=== PATIENT | female | born 1945 | race Caucasian/White ===

== ENCOUNTER → 2017-01-28 | Outpatient (CLI) | payer MEDICARE, BC ==
[2017-01-28 09:59] LABS: Basophils % (A) 1 %; CH 32.3; CHCM 34.4; Eosinophils % (A) 1 %; HCT 41.1 % (34.0-46.0); HDW 2.91; HGB 14.1 gm/dL (11.4-16.0); Luc # (Auto) 0.12; Luc % (Auto) 2; Lymphocytes # (A) 1.1 k/uL (1.0-4.8); Lymphocytes % (A) 22 %; MCH 32.4 pg (25.0-35.0); MCHC 34.3 g/dL (31.0-37.0); MCV 94.7 fL (80.0-100.0); Mean Platelet Volume 7.6; Monocytes # (A) 0.2 k/uL (0-1.0); Monocytes % (A) 5 %; Neutrophils # (A) 3.5 k/uL (1.3-7.7); Neutrophils % (A) 70 %; RBC 4.34 m/uL (3.80-5.40); RDW 13.7 % (11.5-15.5); WBC (Perox) 5.25
[2017-01-28 11:48] LABS: ALT 26 U/L (9-52); AST 17 U/L (14-36); Alkaline Phosphatase 88 U/L (38-126); Anion Gap 10 mmol/L; Blood Urea Nitrogen 11 mg/dL (7-17); C Reactive Protein <5.0 mg/L (<10.0); Calcium 9.8 mg/dL (8.4-10.2); Carbon Dioxide 31 mmol/L (22-30); Chloride 101 mmol/L (98-107); Cholesterol 206 mg/dL (<200); Creatine Kinase 47 U/L (30-135); Glucose 98 mg/dL (74-99); HDL Cholesterol 67 mg/dL (40-60); Magnesium 1.9 mg/dL (1.6-2.3); Non-African American GFR(MDRD) >60 (>60 ml/min/1.73 sqM); Potassium 3.5 mmol/L (3.5-5.1); Sodium 142 mmol/L (137-145); Total Protein 7.1 g/dL (6.3-8.2)
[2017-01-28 13:47] LABS: Erythrocyte Sedimentation Rate 14 mm/hr (0-20)
[2017-01-29 21:41] LABS: Hemoglobin A1C 5.1 % (4.2-6.1)
== END | disposition home or self-care (01) ==
LOC: LABWHC1 09:28
PROVIDERS: ATTEND Internal Medicine
DX: Z00.00 Encounter for general adult medical examination without abnormal findings (principal); E87.8 Other disorders of electrolyte and fluid balance, not elsewhere classified; E78.5 Hyperlipidemia, unspecified; I10 Essential (primary) hypertension; E55.9 Vitamin D deficiency, unspecified
CPT/HCPCS: 36415; 80053; 80061; 82306; 82550; 83036; 83735; 84439; 84443; 85025; 85652; 86140

== ENCOUNTER → 2017-10-10 | Outpatient (CLI) | payer MEDICARE, BC ==
--- NOTE | 2017-10-10 12:23 | FL ---
EXAMINATION TYPE: FL barium swallow w video DATE OF EXAM: 10/10/2017 MODIFIED SWALLOW / DEGLUTITION STUDY CLINICAL HISTORY: Dysphagia. TECHNIQUE: Deglutition study is performed utilizing thin liquid barium, barium thick pudding, and ba rium coated cracker. 1 min 11 sec fluoroscopy time with 0 images saved as video recording was perform ed. COMPARISON: None. FINDINGS: The oral and pharyngeal phases show satisfactory initiation and propagation with all modali ties tested. Normal mastication is seen with solid modalities tested. There is no evidence of penet ration or aspiration with any modality tested. No significant pharyngeal residue was appreciated. IMPRESSION: Unremarkable deglutition study. Please refer to speech therapist notes for further detai ls if necessary.
== END | disposition home or self-care (01) ==
LOC: RADFLMAIN 10:52
PROVIDERS: ATTEND Otolaryngology
DX: R13.10 Dysphagia, unspecified (principal)
CPT/HCPCS: 74230

== ENCOUNTER → 2018-04-06 | Outpatient (CLI) | payer MEDICARE, BC ==
--- NOTE | 2018-04-06 23:16 | BD ---
EXAMINATION TYPE: Axial Bone Density DATE OF EXAM: 04/06/2018 COMPARISON: NONE CLINICAL HISTORY: 69-year-old female osteopenia, postmenopausal screening Height: 64 Weight: 126.3 FRAX RISK QUESTIONS: Alcohol (3 or more units per day): no Family History (Parent hip fracture): no Glucocorticoids (More than 3mos): no (Ex: prednisone, prednisolone, methylprednisolone, dexamethasone, and hydrocortisone). History of Fracture in Adulthood: no Secondary Osteoporosis: 1. Type 1 Diabetes: no 2. Hyperthyroidism: no 3. Menopause before 45: no 4. Malnutrition: no 5. Chronic liver disease: no Rheumatoid Arthritis: no Current Tobacco Use: no RISK FACTORS HISTORY OF: Family History of Osteoporosis: no Active: yes Diet low in dairy products/other sources of calcium: yes Postmenopausal woman: around age 49 Lost more than 2 inches in height since high school: yes/ 4 inches MEDICATIONS: Norvasc, Lipitor Additional History: EXAM MEASUREMENTS: Bone mineral densitometry was performed using the [employer]. Bone mineral density as measured about the Lumbar spine is: ----- L1-L4(G/cm2): 0.762 T Score Values are as follows: ----- L2: -3.3 ----- L3: -2.9 ----- L4: -4.1 ----- L1-L4: -3.5 Bone mineral density has: decreased -3.1 % since study of: 12.31.2012 Bone mineral density about the R hip (g/cm2): 0.601 Bone mineral density about the L hip (g/cm2): 0.611 T Score values are as follows: -----R Neck: -3.1 -----L Neck: -3.1 -----R Total: -3.7 -----L Total: -3.7 Bone mineral density has: decreased -11.0 % since study of: 12.31.2012 IMPRESSION: Osteoporosis (T Score less than -2.5). There is increased fracture risk and therapy is usually indicated based on age. Re-Screen 1-2 years. NOTE: T-SCORE=SD OF THE YOUNG ADULT MEAN.
--- NOTE | 2018-04-07 13:30 | MM ---
Reason for exam: screening (asymptomatic). Last mammogram was performed 4 years and 6 months ago. History: Patient is postmenopausal. Family history of breast cancer in paternal aunt. Benign excisional biopsy of the right breast, April 2005. Physical Findings: A clinical breast exam by your physician is recommended on an annual basis and results should be correlated with mammographic findings. MG 3D Screening Mammo W/Cad Bilateral CC and MLO view(s) were taken. Prior study comparison: October 13, 2013, bilateral MG screening mammo w CAD. September 02, 2012, [facility] DIGITAL RIGHT MAMMOGRAM w/CAD. The breast tissue is heterogeneously dense. This may lower the sensitivity of mammography. There are benign appearing vascular calcifications bilaterally. There is no discrete abnormality. ASSESSMENT: Benign, BI-RAD 2 RECOMMENDATION: Routine screening mammogram of both breasts in 1 year.
== END ==
LOC: RADMAMWWP 13:39
PROVIDERS: ATTEND Internal Medicine
DX: Z12.31 Encounter for screening mammogram for malignant neoplasm of breast (principal); M81.0 Age-related osteoporosis without current pathological fracture
CPT/HCPCS: 77063; 77067; 77080

== ENCOUNTER → 2018-12-28 | Outpatient (CLI) | payer MEDICARE, BC ==
--- NOTE | 2018-12-28 09:50 | XR ---
EXAMINATION TYPE: XR KUB DATE OF EXAM: 12/28/2018 COMPARISON: NONE HISTORY: Frequent UTIs TECHNIQUE: One view abdominal series FINDINGS: The osseous structures are intact. The bowel gas pattern is nonspecific. Diffuse osteopenia with mil d arthropathy of the hips. Mild degenerative changes spine. Calcifications in the right abdomen are m ost likely related to gallstones. IMPRESSION: 1. Correlate for cholelithiasis.
--- NOTE | 2018-12-28 10:48 | US ---
EXAMINATION TYPE: US kidneys/renal and bladder DATE OF EXAM: 12/28/2018 COMPARISON: US & CT CLINICAL HISTORY: N39.0 Frequent/recurrent UTI. EXAM MEASUREMENTS: Right Kidney: 11.9 x 3.5 x 4.9 cm Left Kidney: 11.7 x 3.9 x 5.6 cm Right Kidney: No hydronephrosis or masses seen Left Kidney: There are several echogenic foci , one shows twinkle artifact and measures 0.6 cm, could represent a stone. Bladder: not well distended Bilateral Jets seen: No There is no evidence for hydronephrosis at this point in time. No masses are identified. The urinar y bladder is poorly distended. IMPRESSION: I cannot exclude left-sided nonobstructing nephrolithiasis.
== END | disposition home or self-care (01) ==
LOC: RADUSWWP 09:10
PROVIDERS: ATTEND Urology
DX: N39.0 Urinary tract infection, site not specified (principal)
CPT/HCPCS: 74018; 76770

== ENCOUNTER 2021-02-06 22:16 | Observation (INO) | payer MEDICARE, BC ==
--- NOTE | 2021-02-06 22:36 | ED ---
General Adult HPI - General Stated complaint: Neuro Deficits Time Seen by Provider: 02/06/21 22:18 Source: patient Mode of arrival: EMS Limitations: no limitations - History of Present Illness Initial comments: This patient is a 77-year-old woman who presents to be evaluated for feeling off balance and like she was going to fall. The patient states that this came on acutely tonight. She states that it felt like something was pulling her towards ground. She states she was feeling off balance. Her family was concerned she may be having a stroke, but patient denies having focal weakness. Onset/Timin -: hour(s) Severity scale (1-10): 0 Consistency: constant Improves with: none Worsens with: none Associated Symptoms: weakness Treatments Prior to Arrival: none - Related Data Home Medications Medication Instructions Recorded Confirmed Cholecalciferol (Vitamin D3) 75 mcg PO DAILY 02/07/21 02/07/21 [Vitamin D3 (3000 Iu)] Vitamin B Complex 1 cap PO DAILY 02/07/21 02/07/21 amLODIPine [Norvasc] 10 mg PO DAILY 02/07/21 02/07/21 Allergies Allergy/AdvReac Type Severity Reaction Status Date / Time ampicillin Allergy Rash/Hives Verified 02/07/21 07:00 prochlorperazine Allergy Anaphylaxis Verified 02/07/21 07:00 [From Compazine] Review of Systems ROS Statement: Those systems with pertinent positive or pertinent negative responses have been documented in the HPI. ROS Other: All systems not noted in ROS Statement are negative. Constitutional: Denies: fever, chills Eyes: Denies: vision change Respiratory: Denies: cough, dyspnea Cardiovascular: Denies: chest pain, palpitations, edema Gastrointestinal: Denies: abdominal pain, vomiting, diarrhea, constipation Genitourinary: Denies: dysuria, hematuria Musculoskeletal: Denies: back pain Skin: Denies: rash Neurological: Reports: weakness (Generalized), abnormal gait. Denies: headache, numbness, paresthesias, confusion General Exam General appearance: alert, in no apparent distress Head exam: Present: atraumatic, normocephalic Eye exam: Present: normal appearance. Absent: scleral icterus, conjunctival injection Neck exam: Present: normal inspection, full ROM Respiratory exam: Present: normal lung sounds bilaterally. Absent: respiratory distress, wheezes, rales, rhonchi, stridor Cardiovascular Exam: Present: regular rate, normal rhythm, normal heart sounds. Absent: systolic murmur, diastolic murmur, rubs, gallop GI/Abdominal exam: Present: soft. Absent: distended, tenderness, guarding, rebound, rigid, mass Back exam: Present: normal inspection. Absent: CVA tenderness (R), CVA tenderness (L) Neurological exam: Present: alert, oriented X3, CN II-XII intact. Absent: motor sensory deficit Skin exam: Present: warm, dry, intact, normal color. Absent: rash Course Vital Signs 02/06/21 02/06/21 02/06/21 22:18 22:30 23:30 Temperature 97.7 F 97.6 F 97.7 F Pulse Rate 86 81 87 Respiratory 16 18 18 Rate Blood Pressure 141/78 135/72 145/81 O2 Sat by Pulse 96 95 95 Oximetry 02/06/21 02/07/21 02/07/21 23:58 00:30 01:30 Temperature 97.7 F 97.7 F Pulse Rate 82 92 92 Respiratory 16 18 16 Rate Blood Pressure 150/81 144/71 139/72 O2 Sat by Pulse 95 94 L 95 Oximetry 02/07/21 02/07/21 02:30 05:45 Temperature 97.6 F 97.8 F Pulse Rate 89 89 Respiratory 16 16 Rate Blood Pressure 140/72 125/63 O2 Sat by Pulse 96 96 Oximetry EKG Findings - EKG Results: EKG: interpreted by FITO, sinus rhythm (Rate 78 bpm), normal axis, normal QRS, normal ST/T, no acute changes Medical Decision Making - Medical Decision Making Patient is 76-year-old woman who developed off balance feeling and then had very difficult time walking. There does not appear to be current evidence of acute ischemic stroke. Possible TIA. Patient's case discussed with Dr. Turner he who will admit with neurology consultation. - Lab Data Result diagrams: 02/06/21 22:48 02/06/21 22:48 Lab Results 02/06/21 02/06/21 02/06/21 Range/Units 22:48 22:48 22:48 WBC 5.4 (3.8-10.6) k/uL RBC 3.81 (3.80-5.40) m/uL Hgb 12.1 (11.4-16.0) gm/dL Hct 36.1 (34.0-46.0) % MCV 94.7 (80.0-100.0) fL MCH 31.8 (25.0-35.0) pg MCHC 33.6 (31.0-37.0) g/dL RDW 12.5 (11.5-15.5) % Plt Count 270 (150-450) k/uL MPV 7.9 Neutrophils % 60 % Lymphocytes % 25 % Monocytes % 8 % Eosinophils % 3 % Basophils % 0 % Neutrophils # 3.3 (1.3-7.7) k/uL Lymphocytes # 1.4 (1.0-4.8) k/uL Monocytes # 0.4 (0-1.0) k/uL Eosinophils # 0.2 (0-0.7) k/uL Basophils # 0.0 (0-0.2) k/uL PT 9.9 (9.0-12.0) sec INR 0.9 (<1.2) APTT 22.2 (22.0-30.0) sec Sodium 135 L (137-145) mmol/L Potassium 3.5 (3.5-5.1) mmol/L Chloride 98 (98-107) mmol/L Carbon Dioxide 27 (22-30) mmol/L Anion Gap 10 mmol/L BUN 22 H (7-17) mg/dL Creatinine 0.73 (0.52-1.04) mg/dL Est GFR (CKD-EPI)AfAm >90 (>60 ml/min/1.73 sqM) Est GFR (CKD-EPI)NonAf 80 (>60 ml/min/1.73 sqM) Glucose 108 H (74-99) mg/dL Calcium 9.7 (8.4-10.2) mg/dL Total Bilirubin 0.6 (0.2-1.3) mg/dL AST 22 (14-36) U/L ALT 11 (4-34) U/L Alkaline Phosphatase 98 (38-126) U/L Troponin I (0.000-0.034) ng/mL Total Protein 6.9 (6.3-8.2) g/dL Albumin 4.1 (3.5-5.0) g/dL 02/06/21 Range/Units 22:48 WBC (3.8-10.6) k/uL RBC (3.80-5.40) m/uL Hgb (11.4-16.0) gm/dL Hct (34.0-46.0) % MCV (80.0-100.0) fL MCH (25.0-35.0) pg MCHC (31.0-37.0) g/dL RDW (11.5-15.5) % Plt Count (150-450) k/uL MPV Neutrophils % % Lymphocytes % % Monocytes % % Eosinophils % % Basophils % % Neutrophils # (1.3-7.7) k/uL Lymphocytes # (1.0-4.8) k/uL Monocytes # (0-1.0) k/uL Eosinophils # (0-0.7) k/uL Basophils # (0-0.2) k/uL PT (9.0-12.0) sec INR (<1.2) APTT (22.0-30.0) sec Sodium (137-145) mmol/L Potassium (3.5-5.1) mmol/L Chloride (98-107) mmol/L Carbon Dioxide (22-30) mmol/L Anion Gap mmol/L BUN (7-17) mg/dL Creatinine (0.52-1.04) mg/dL Est GFR (CKD-EPI)AfAm (>60 ml/min/1.73 sqM) Est GFR (CKD-EPI)NonAf (>60 ml/min/1.73 sqM) Glucose (74-99) mg/dL Calcium (8.4-10.2) mg/dL Total Bilirubin (0.2-1.3) mg/dL AST (14-36) U/L ALT (4-34) U/L Alkaline Phosphatase (38-126) U/L Troponin I <0.012 (0.000-0.034) ng/mL Total Protein (6.3-8.2) g/dL Albumin (3.5-5.0) g/dL Disposition Clinical Impression: TIA (transient ischemic attack) Disposition: Left Against Medical Advice Condition: Undetermined Is patient prescribed a controlled substance at d/c from ED?: No
--- NOTE | 2021-02-06 23:08 | CT ---
EXAMINATION TYPE: CT brain wo con for TPA DATE OF EXAM: 02/06/2021 COMPARISON: 02/19/2010 HISTORY: NUERO DEFICITS CT DLP: 1121.4 mGycm Automated exposure control for dose reduction was used. Images obtained of the brain without contrast. There is cerebral cortical atrophy. There is no mass effect nor midline shift. There is no sign of in tracranial hemorrhage. There is left occipital craniotomy defect noted. There is hypodensity in the p osterior fossa on the left side consistent with some cerebellar encephalomalacia unchanged. IMPRESSION: Previous surgery in the left posterior fossa. No acute intracranial abnormality. No significant campos e compared to old exam..
[2021-02-06 23:11] LABS: Basophils % (A) 0 %; Eosinophils # (A) 0.2 k/uL (0-0.7); Eosinophils % (A) 3 %; HCT 36.1 % (34.0-46.0); HGB 12.1 gm/dL (11.4-16.0); Lymphocytes # (A) 1.4 k/uL (1.0-4.8); Lymphocytes % (A) 25 %; MCH 31.8 pg (25.0-35.0); MCHC 33.6 g/dL (31.0-37.0); MCV 94.7 fL (80.0-100.0); Mean Platelet Volume 7.9; Monocytes # (A) 0.4 k/uL (0-1.0); Monocytes % (A) 8 %; Neutrophils # (A) 3.3 k/uL (1.3-7.7); Neutrophils % (A) 60 %; Platelet Count 270 k/uL (150-450); RBC 3.81 m/uL (3.80-5.40); RDW 12.5 % (11.5-15.5); WBC 5.4 k/uL (3.8-10.6)
--- NOTE | 2021-02-06 23:11 | XR ---
EXAMINATION TYPE: XR chest 2V DATE OF EXAM: 02/06/2021 COMPARISON: 08/28/2013 HISTORY: Short of breath. Altered mental status TECHNIQUE: FINDINGS: There is large hiatal hernia. There is no heart failure. There is some coarsening of inters titial markings. Costophrenic angles are fairly clear. Bony thorax is intact. Thoracic aorta is ather omatous. There is some osteopenia. IMPRESSION: There is COPD and pulmonary fibrosis. No heart failure. Pulmonary fibrosis increased comp ared to old exam. Large hiatal hernia increased compared to old exam.
[2021-02-06 23:25] LABS: ALT 11 U/L (4-34); AST 22 U/L (14-36); African American GFR (CKD) >90 (>60 ml/min/1.73 sqM); Albumin 4.1 g/dL (3.5-5.0); Alkaline Phosphatase 98 U/L (38-126); Anion Gap 10 mmol/L; Blood Urea Nitrogen 22 mg/dL (7-17); Calcium 9.7 mg/dL (8.4-10.2); Carbon Dioxide 27 mmol/L (22-30); Chloride 98 mmol/L (98-107); Glucose 108 mg/dL (74-99); Non-African American GFR(CKD) 80 (>60 ml/min/1.73 sqM); Potassium 3.5 mmol/L (3.5-5.1); Sodium 135 mmol/L (137-145); Total Bilirubin 0.6 mg/dL (0.2-1.3); Total Protein 6.9 g/dL (6.3-8.2)
[2021-02-06 23:33] LABS: INR 0.9 (<1.2); Partial Thromboplastin Time 22.2 sec (22.0-30.0); Prothrombin Time 9.9 sec (9.0-12.0)
[2021-02-06] MEDS ORDERED: SODIUM CHLORIDE 0.9% 500 ML 500 ML IV STA (23:52)
[2021-02-07] MEDS ORDERED: ASPIRIN 325 MG TAB PO STA (00:10)
[2021-02-07] MEDS ORDERED: SODIUM CHLORIDE 0.9% 1,000 ML IV SCH (00:15)
[2021-02-07 03:43] VITALS: RESP 16
[2021-02-07 03:45] VITALS: PULSE 89
[2021-02-07 05:46] VITALS: BP 125/63; TEMP 97.8
[2021-02-07] MEDS ORDERED: DOCUSATE 100 MG CAP PO SCH (08:00)
[2021-02-07] MEDS ORDERED: FAMOTIDINE 20 MG TAB PO SCH (09:00)
[2021-02-08] MEDS ORDERED: ASPIRIN 325 MG TAB PO SCH (09:00)
== END 2021-02-07 07:39 | disposition left against medical advice (07) ==
LOC: EC 22:16 → 6NMEDSUR 02-07 00:10
PROVIDERS: ADMIT Internal Medicine; ATTEND Internal Medicine
DX: G45.9 Transient cerebral ischemic attack, unspecified (principal); R53.1 Weakness; Z79.899 Other long term (current) drug therapy; Z88.0 Allergy status to penicillin; Z88.8 Allergy status to other drugs, medicaments and biological substances; R26.89 Other abnormalities of gait and mobility; Z20.822 Contact with and (suspected) exposure to COVID-19; Z53.29 Procedure and treatment not carried out because of patient's decision for other reasons
CPT/HCPCS: 99285; 36415; 93005; 80053; 84484 ×2; 85025; 85610; 85730; 87635; 71046; 70450; G0378

== ENCOUNTER 2021-05-29 09:25 | Inpatient (IN) | payer MEDICARE, BC ==
[2021-05-29] MEDS ORDERED: ONDANSETRON 4 MG/2 ML VIAL IVP STA (09:50)
[2021-05-29] MEDS ORDERED: SODIUM CHLORIDE 0.9% 500 ML 500 ML IV STA (09:50)
[2021-05-29] MEDS ORDERED: PANTOPRAZOLE 40 MG/10 ML VIAL IVP STA (10:06)
--- NOTE | 2021-05-29 10:15 | ED ---
General Adult HPI - General Chief complaint: Nausea/Vomiting/Diarrhea Stated complaint: Vomiting,constipation Time Seen by Provider: 05/29/21 09:31 Source: patient, RN notes reviewed, old records reviewed Mode of arrival: EMS Limitations: no limitations - History of Present Illness Initial comments: 76-year-old female presenting for evaluation of nausea vomiting and very mild abdominal pain. She states she has not had a normal bowel movement over the past at least 5 days. She's had multiple episodes of vomiting and significant nausea. Vomiting has turned brown. She has previous history of CVA. She lives alone. No active chest pain. No fevers. No cough or URI symptoms. - Related Data Home Medications Medication Instructions Recorded Confirmed Cholecalciferol (Vitamin D3) 75 mcg PO DAILY 02/07/21 05/29/21 [Vitamin D3 (3000 Iu)] Vitamin B Complex 1 cap PO DAILY 02/07/21 05/29/21 amLODIPine [Norvasc] 10 mg PO DAILY 02/07/21 05/29/21 Allergies Allergy/AdvReac Type Severity Reaction Status Date / Time ampicillin Allergy Rash/Hives Verified 05/29/21 11:16 prochlorperazine Allergy Anaphylaxis Verified 05/29/21 11:16 [From Compazine] Review of Systems ROS Statement: Those systems with pertinent positive or pertinent negative responses have been documented in the HPI. ROS Other: All systems not noted in ROS Statement are negative. 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 Absent: respiratory distress, wheezes GI/Abdominal exam: Present: soft, distended, tenderness (Very minimal tenderness), hernia (Right inguinal hernia) Extremities exam: Present: normal inspection, normal capillary refill. Absent: pedal edema Neurological exam: Present: alert, oriented X3, CN II-XII intact. Absent: motor sensory deficit Psychiatric exam: Present: normal affect, normal mood Skin exam: Present: warm, dry, intact. Absent: cyanosis, diaphoretic Course Vital Signs 05/29/21 05/29/21 05/29/21 09:30 10:00 11:00 Temperature 97.0 F L Pulse Rate 104 H 106 H 97 Respiratory 19 16 14 Rate Blood Pressure 103/62 103/62 99/51 O2 Sat by Pulse 96 96 98 Oximetry - Reevaluation(s) Reevaluation #1: 05/29/21 11:[address] Blevins, will admit, likely surgery today. EKG Findings - EKG Comments: EKG Findings:: Sinus tach, rate of 108, baseline artifact, probable ST segment depression in the precordial leads no ST segment elevation, IA interval 142, QRS duration 90, QTC 527. Medical Decision Making - Medical Decision Making 76-year-old female presenting with nausea vomiting for the past 4 days. Patient is mildly distended. She has a right inguinal hernia. She is vomiting brown liquid. Workup is initiated. She has a leukocytosis. She is in acute renal failure. Lactic acid 1.9. CT shows small bowel instruction with right inguinal hernia NG tube was placed with significant return. I discussed case with Dr. Blevins who doesn't recommend continued IV fluids, antiemetics, antibiotics. Patient will be admitted to general surgery with internal medicine on consult. Likely OR today. - Lab Data Result diagrams: 05/29/21 11:36 05/29/21 09:57 Lab Results 05/29/21 05/29/21 05/29/21 Range/Units 09:57 09:57 10:32 WBC (3.8-10.6) k/uL RBC (3.80-5.40) m/uL Hgb (11.4-16.0) gm/dL Hct (34.0-46.0) % MCV (80.0-100.0) fL MCH (25.0-35.0) pg MCHC (31.0-37.0) g/dL RDW (11.5-15.5) % Plt Count (150-450) k/uL MPV Neutrophils % % Lymphocytes % % Monocytes % % Eosinophils % % Basophils % % Neutrophils # (1.3-7.7) k/uL Lymphocytes # (1.0-4.8) k/uL Monocytes # (0-1.0) k/uL Eosinophils # (0-0.7) k/uL Basophils # (0-0.2) k/uL Sodium 132 L (137-145) mmol/L Potassium 3.4 L (3.5-5.1) mmol/L Chloride 89 L (98-107) mmol/L Carbon Dioxide 22 (22-30) mmol/L Anion Gap 21 mmol/L BUN 89 H (7-17) mg/dL Creatinine 2.74 H (0.52-1.04) mg/dL Est GFR (CKD-EPI)AfAm 19 (>60 ml/min/1.73 sqM) Est GFR (CKD-EPI)NonAf 16 (>60 ml/min/1.73 sqM) Glucose 142 H (74-99) mg/dL Plasma Lactic Acid Sammy 1.9 (0.7-2.0) mmol/L Calcium 9.5 (8.4-10.2) mg/dL Total Bilirubin 1.6 H (0.2-1.3) mg/dL AST 22 (14-36) U/L ALT 19 (4-34) U/L Alkaline Phosphatase 122 (38-126) U/L Total Protein 7.0 (6.3-8.2) g/dL Albumin 4.1 (3.5-5.0) g/dL Amylase 55 (30-110) U/L Lipase 106 (23-300) U/L Coronavirus (PCR) Not Detected (Not Detectd) 05/29/21 Range/Units 11:36 WBC 22.5 H (3.8-10.6) k/uL RBC 4.91 (3.80-5.40) m/uL Hgb 15.9 (11.4-16.0) gm/dL Hct 46.6 H (34.0-46.0) % MCV 94.9 (80.0-100.0) fL MCH 32.3 (25.0-35.0) pg MCHC 34.0 (31.0-37.0) g/dL RDW 13.4 (11.5-15.5) % Plt Count 354 (150-450) k/uL MPV 8.5 Neutrophils % 92 % Lymphocytes % 3 % Monocytes % 4 % Eosinophils % 0 % Basophils % 0 % Neutrophils # 20.7 H (1.3-7.7) k/uL Lymphocytes # 0.6 L (1.0-4.8) k/uL Monocytes # 0.9 (0-1.0) k/uL Eosinophils # 0.0 (0-0.7) k/uL Basophils # 0.0 (0-0.2) k/uL Sodium (137-145) mmol/L Potassium (3.5-5.1) mmol/L Chloride (98-107) mmol/L Carbon Dioxide (22-30) mmol/L Anion Gap mmol/L BUN (7-17) mg/dL Creatinine (0.52-1.04) mg/dL Est GFR (CKD-EPI)AfAm (>60 ml/min/1.73 sqM) Est GFR (CKD-EPI)NonAf (>60 ml/min/1.73 sqM) Glucose (74-99) mg/dL Plasma Lactic Acid Sammy (0.7-2.0) mmol/L Calcium (8.4-10.2) mg/dL Total Bilirubin (0.2-1.3) mg/dL AST (14-36) U/L ALT (4-34) U/L Alkaline Phosphatase (38-126) U/L Total Protein (6.3-8.2) g/dL Albumin (3.5-5.0) g/dL Amylase (30-110) U/L Lipase (23-300) U/L Coronavirus (PCR) (Not Detectd) Critical Care Time Critical Care Time: Yes Total Critical Care Time: 35 Disposition Clinical Impression: BRIAN (acute kidney injury), SBO (small bowel obstruction) Disposition: ADMITTED IP TO THIS [facility] Condition: Serious Is patient prescribed a controlled substance at d/c from ED?: No Decision to Admit Reason: Admit from EC Decision Date: 05/29/21 Decision Time: 11:45
[2021-05-29] MEDS ORDERED: LORazepam 2 MG/ML INJ IV STA (10:19)
[2021-05-29] MEDS ORDERED: METOCLOPRAMIDE 5 MG/ML 2 ML VIAL IVP STA (10:19)
[2021-05-29 10:24] LABS: Albumin 4.1 g/dL (3.5-5.0); Calcium 9.5 mg/dL (8.4-10.2); Potassium 3.4 mmol/L (3.5-5.1); Total Bilirubin 1.6 mg/dL (0.2-1.3)
[2021-05-29] MEDS ORDERED: cefTRIAXone IN SWFI 1,000 MG/10 ML SYRINGE IVP STA (11:16)
[2021-05-29] MEDS ORDERED: metroNIDAZOLE-NS PMX 500 MG in SALINE 1 100ML.BAG IVPB STA (11:17)
--- NOTE | 2021-05-29 11:23 | CT ---
EXAMINATION TYPE: CT abdomen pelvis wo con DATE OF EXAM: 05/29/2021 HISTORY: Pain and vomiting CT DLP: 372 mGycm. Automated Exposure Control for Dose Reduction was Utilized. TECHNIQUE: CT scan of the abdomen and pelvis is performed without oral or IV contrast. COMPARISON: Prior CT February 27, 2015 FINDINGS: Within the limitations of a non-contrast study, the following observations are made. LUNG BASES: Calcification at level of the mitral valve redemonstrated. Some coronary artery calcifica tion is again seen. LIVER/GB: Dependent small calcified gallstones within gallbladder redemonstrated. Gallbladder has dis tended margins. PANCREAS: No significant abnormality is seen. SPLEEN: No significant abnormality is seen. ADRENALS: No significant abnormality is seen. KIDNEYS: Approximately 6-8 scattered nonobstructing left renal calculi on current exam measuring up t o 5 mm in size. Suspected 1 to 2 mm nonobstructing lower pole right renal calculus coronal image 58. No hydronephrosis or obstructing ureteral calculi seen bilaterally. BOWEL: Fluid-filled dilated distal esophagus extends through the diaphragmatic hiatus into fluid-fill ed distended stomach. There is fluid filled dilated duodenal sweep. There are air-fluid levels in dil ated fluid-filled small bowel loops throughout the abdomen and pelvis extending to level of the bowel containing right inguinal hernia on current study where there is abrupt cut off. Stepladder appearan ce is seen with small bowel loops dilated up to 4.5 cm. No free or mesenteric air identified. Nondist ended distal small bowel loops in the right pelvis. Fecal material seen in nondistended colon along t he periphery. Diverticula in the left and sigmoid colon are present. GENITAL ORGANS: Uterus is surgically absent. LYMPH NODES: No greater than 1cm abdominal or pelvic lymph nodes are appreciated. OSSEOUS STRUCTURES: No significant abnormality is seen. OTHER: No significant additional abnormality is seen. IMPRESSION: Findings consistent with distal small bowel obstruction related to bowel containing right inguinal hernia as detailed above. Surgical exploration is likely warranted.
[2021-05-29] MEDS ORDERED: SODIUM CHLORIDE 0.9% 500 ML 500 ML IV ONE (11:35)
[2021-05-29] MEDS ORDERED: NALOXONE 0.4 MG/ML 1 ML VIAL IV PRN (11:43)
[2021-05-29 11:55] LABS: Basophils % (A) 0 %; Eosinophils % (A) 0 %; HCT 46.6 % (34.0-46.0); HGB 15.9 gm/dL (11.4-16.0); Lymphocytes # (A) 0.6 k/uL (1.0-4.8); Lymphocytes % (A) 3 %; MCH 32.3 pg (25.0-35.0); MCV 94.9 fL (80.0-100.0); Mean Platelet Volume 8.5; Monocytes # (A) 0.9 k/uL (0-1.0); Monocytes % (A) 4 %; Neutrophils # (A) 20.7 k/uL (1.3-7.7); Neutrophils % (A) 92 %; Platelet Count 354 k/uL (150-450); RBC 4.91 m/uL (3.80-5.40); RDW 13.4 % (11.5-15.5); WBC 22.5 k/uL (3.8-10.6)
[2021-05-29 12:07] LABS: Partial Thromboplastin Time 19.6 sec (22.0-30.0); Prothrombin Time 10.8 sec (9.0-12.0)
[2021-05-29] MEDS: SODIUM CHLORIDE 0.9% 1,000 ML IV SCH (12:37)
[2021-05-29] MEDS ORDERED: POTASSIUM CHLORIDE 20 MEQ in WATER FOR INJECTION 1 100ML.BAG IVPB STA (12:58)
--- NOTE | 2021-05-29 14:14 | P.GSHP ---
History of Present Illness H&P Date: 05/29/21 CHIEF COMPLAINT: Nausea vomiting and abdominal pain HISTORY OF PRESENT ILLNESS: This is a 76-year-old female who presented to the ER with complaints of lower abdominal pain with nausea and vomiting for the past 4 days. Her emesis has been brown in color. She had multiple episodes of vomiting. She has diminished appetite. Last bowel movement was 2 days ago. She does have lower abdominal pain. She does have evidence of right incarcerated inguinal hernia. Computed tomography scan of abdomen that demonstrated distal small bowel obstruction related to bowel containing right inguinal hernia. Patient has NG tube in place. She also has had some mild tachycardia. Past surgical history includes a hysterectomy PAST MEDICAL HISTORY: Brain tumor that was removed in 2009 9 cancer is, CVA, hyperlipidemia, hypertension PAST SURGICAL HISTORY: Hysterectomy MEDICATIONS: See list. ALLERGIES: See list. SOCIAL HISTORY: No illicit drug use. REVIEW OF SYSTEMS: CONSTITUTIONAL: Denies fever or chills. HEENT: Denies blurred vision, vision changes, or eye pain. Denies hemoptysis CARDIOVASCULAR: Denies chest pain or pressure. RESPIRATORY: No shortness of breath. GASTROINTESTINAL: See HPI for pertinent findings HEMATOLOGIC: Denies bleeding disorders. GENITOURINARY: Denies any blood in urine or increased urinary frequency. SKIN: Denies pruitis. Denies rash. PHYSICAL EXAM: VITAL SIGNS: Reviewed GENERAL: Well-developed in no acute distress. HEENT: No sclera icterus. Extraocular movements grossly intact. Moist buccal mucosa. Head is atraumatic, normocephalic. No nasal drainage. ABDOMEN: Soft. Nondistended. Right inguinal hernia. Hernia is firm and hard. NEUROLOGIC: Alert and oriented. Cranial nerves II through XII grossly intact. LABORATORY DATA: WBC is 22.5 hemoglobin 15.9 platelets 354 Sodium 132 potassium 3.4 creatinine 2.7 for lactic 1.9 Total bili 1.6 LFTs normal IMAGING: Computed tomography scan of abdomen that demonstrated distal small bowel obstruc tion related to bowel containing right inguinal hernia. ASSESSMENT: 1. Right incarcerated inguinal hernia causing distal small bowel obstruction 2. Acute kidney injury due to dehydration 3. Hypokalemia PLAN: -Patient scheduled for exploratory laparotomy today with Dr. Blevins -Continue NG tube for decompression -Keep patient nothing by mouth -Continue IV fluids -Replace potassium -Consult medicine service for medical management Physician Retread Technician note has been reviewed by physician. Signing provider agrees with the documented findings, assessment, and plan of care. Past Medical History Past Medical History: CVA/TIA, Eye Disorder, Hyperlipidemia, Hypertension Additional Past Medical History / Comment(s): tremors History of Any Multi-Drug Resistant Organisms: None Reported Additional Past Surgical History / Comment(s): 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, multiple eye surgeries Past Psychological History: No Psychological Hx Reported Smoking Status: Never smoker Past Alcohol Use History: None Reported Past Drug Use History: None Reported Medications and Allergies Home Medications Medication Instructions Recorded Confirmed Type Cholecalciferol (Vitamin D3) 75 mcg PO DAILY 02/07/21 05/29/21 History [Vitamin D3 (3000 Iu)] Vitamin B Complex 1 cap PO DAILY 02/07/21 05/29/21 History amLODIPine [Norvasc] 10 mg PO DAILY 02/07/21 05/29/21 History Allergies Allergy/AdvReac Type Severity Reaction Status Date / Time ampicillin Allergy Rash/Hives Verified 05/29/21 11:16 prochlorperazine Allergy Anaphylaxis Verified 05/29/21 11:16 [From Compazine] Surgical - Exam Vital Signs Temp Pulse Resp BP Pulse Ox 97.0 F L 104 H 19 103/62 96 05/29/21 09:30 05/29/21 09:30 05/29/21 09:30 05/29/21 09:30 05/29/21 09:30 Results - Labs 05/29/21 11:36 05/29/21 09:57 Abnormal Lab Results - Last 24 Hours (Table) 05/29/21 05/29/21 05/29/21 Range/Units 09:57 11:36 11:36 WBC 22.5 H (3.8-10.6) k/uL Hct 46.6 H (34.0-46.0) % Neutrophils # 20.7 H (1.3-7.7) k/uL Lymphocytes # 0.6 L (1.0-4.8) k/uL APTT 19.6 L (22.0-30.0) sec Sodium 132 L (137-145) mmol/L Potassium 3.4 L (3.5-5.1) mmol/L Chloride 89 L (98-107) mmol/L BUN 89 H (7-17) mg/dL Creatinine 2.74 H (0.52-1.04) mg/dL Glucose 142 H (74-99) mg/dL Total Bilirubin 1.6 H (0.2-1.3) mg/dL Diabetes panel 05/29/21 Range/Units 09:57 Sodium 132 L (137-145) mmol/L Potassium 3.4 L (3.5-5.1) mmol/L Chloride 89 L (98-107) mmol/L Carbon Dioxide 22 (22-30) mmol/L BUN 89 H (7-17) mg/dL Creatinine 2.74 H (0.52-1.04) mg/dL Glucose 142 H (74-99) mg/dL Calcium 9.5 (8.4-10.2) mg/dL AST 22 (14-36) U/L ALT 19 (4-34) U/L Alkaline Phosphatase 122 (38-126) U/L Total Protein 7.0 (6.3-8.2) g/dL Albumin 4.1 (3.5-5.0) g/dL Calcium panel 05/29/21 Range/Units 09:57 Calcium 9.5 (8.4-10.2) mg/dL Albumin 4.1 (3.5-5.0) g/dL Pituitary panel 05/29/21 Range/Units 09:57 Sodium 132 L (137-145) mmol/L Potassium 3.4 L (3.5-5.1) mmol/L Chloride 89 L (98-107) mmol/L Carbon Dioxide 22 (22-30) mmol/L BUN 89 H (7-17) mg/dL Creatinine 2.74 H (0.52-1.04) mg/dL Glucose 142 H (74-99) mg/dL Calcium 9.5 (8.4-10.2) mg/dL Adrenal panel 05/29/21 Range/Units 09:57 Sodium 132 L (137-145) mmol/L Potassium 3.4 L (3.5-5.1) mmol/L Chloride 89 L (98-107) mmol/L Carbon Dioxide 22 (22-30) mmol/L BUN 89 H (7-17) mg/dL Creatinine 2.74 H (0.52-1.04) mg/dL Glucose 142 H (74-99) mg/dL Calcium 9.5 (8.4-10.2) mg/dL Total Bilirubin 1.6 H (0.2-1.3) mg/dL AST 22 (14-36) U/L ALT 19 (4-34) U/L Alkaline Phosphatase 122 (38-126) U/L Total Protein 7.0 (6.3-8.2) g/dL Albumin 4.1 (3.5-5.0) g/dL
[2021-05-29 14:35] LABS: Appearance,Urine Turbid (Clear); Bilirubin,Urine 1+ (Negative); Blood,Urine Trace (Negative); Color,Urine Yellow; Glucose,Urine (UA) Negative (Negative); Hyaline Casts,Urine 231 /lpf (0-2); Ketones,Urine Negative (Negative); Leukocyte Esterase,Urine Moderate (Negative); Mucus,Urine Few /hpf; Nitrite,Urine Negative (Negative); Protein,Urine 1+ (Negative); RBC,Urine 12 /hpf (0-5); Specific Gravity,Urine 1.019 (1.001-1.035); Squamous Epithelial Cell,Urine 6 /hpf (0-4); WBC,Urine 46 /hpf (0-5)
[2021-05-29] MEDS ORDERED: ACETAMINOPHEN IV (For NPO) 1,000 MG in EMPTY BAG 1 BAG IVPB STA (14:40)
[2021-05-29] MEDS ORDERED: IV FLUID CONTINUATION 1,000 ML IV ONE ×2 (17:16)
[2021-05-29] MEDS ORDERED: PROPOFOL 10 MG/ML 20 ML VIAL IV ONE (17:29)
[2021-05-29] MEDS ORDERED: NEOSTIGMINE 1 MG/ML 10 ML VIAL ONE (17:29)
[2021-05-29] MEDS ORDERED: PHENYLEPHRINE-0.9% NACL SYG 1,000 MCG/10 ML SYRINGE ONE (17:29)
[2021-05-29] MEDS ORDERED: GLYCOPYRROLATE 0.2 MG/ML 2 ML VIAL ONE (17:29)
[2021-05-29] MEDS ORDERED: LIDOCAINE 1% INJ 10MG/ML (20 ML MDV) ONE (17:29)
[2021-05-29] MEDS ORDERED: fentaNYL (PF) 50 MCG/ML 2 ML AMP ONE (17:29)
[2021-05-29] MEDS ORDERED: HEPARIN SODIUM,PORCINE 5,000 UNIT/ML 1 ML VIAL ONE (17:29)
[2021-05-29] MEDS ORDERED: ROCURONIUM 10 MG/ML (5 ML VIAL) IV ONE (17:29)
[2021-05-29] MEDS ORDERED: SUCCINYLCHOLINE CHLORIDE 100 MG/5 ML SYR IV ONE (17:29)
[2021-05-29] MEDS ORDERED: HYDROmorphone 1 MG/ML 1 ML SYRINGE IM PRN (18:21)
--- NOTE | 2021-05-29 18:21 | P.OP ---
Date of Procedure: 05/29/21 Preoperative Diagnosis: Incarcerated right inguinal hernia Postoperative Diagnosis: Strangulated right inguinal hernia Procedure(s) Performed: Large laparotomy Small bowel resection Repair of strength in the right inguinal hernia Anesthesia: LUIS Surgeon: Kian Blevins Estimated Blood Loss (ml): 10 Pathology: other (Small bowel) Condition: stable Disposition: PACU Description of Procedure: The patient's placed the operative table in the supine position. She received general endotracheal anesthesia. Her abdomen was prepped and draped usual fashion. The area was entered through a low midline incision. The small bowel was run. There was incarcerated right inguinal hernia. The neck of the hernia was opened and the small bowel was reduced. The small bowel was reduced. The small bowel appeared ischemic. This point the small bowel was transected proximal and distally with a GI stapler. The mesentery the bowel was divided with the Enseal device. The bowel was reanastomosed in a [id number]-[id number] functional end-to-end staple anastomosis created using the PABLITO and TA stapler. 3-0 GI silk sutures uses crotch stitch. There was areas no bleeding seen. The [id number] was opened. A core bio a mesh plug was then placed into the hernia canal. This was secured with 2-0 Ethibond suture. The peritoneum was then closed. The fascia closed with looped #1 PDS suture. Skin was closed with 3 patient top she will was sent to recovery room in stable condition. in a xzlc-ya-wicz functional end-to-end staple vessels. Using the PABLITO and TA stapler.
[2021-05-29] MEDS ORDERED: LACTATED RINGERS 1,000 ML IV ONE ×2 (18:33)
[2021-05-29] MEDS: HYDROmorphone 0.5 MG/0.5 ML SYRINGE IVP PRN (18:47)
[2021-05-29] MEDS: LACTATED RINGERS 1,000 ML IV SCH (20:34)
[2021-05-29] MEDS: ONDANSETRON 4 MG/2 ML VIAL IVP PRN (20:38)
[2021-05-30] MEDS: HYDROmorphone 0.5 MG/0.5 ML SYRINGE IVP PRN ×2 (01:24→05:50)
[2021-05-30] MEDS: SODIUM CHLORIDE 0.9% 1,000 ML IV SCH ×3 (05:26→21:54)
[2021-05-30] MEDS ORDERED: fentaNYL (PF) 50 MCG/ML 2 ML AMP IV PRN (07:00)
[2021-05-30] MEDS: PANTOPRAZOLE 40 MG/10 ML VIAL IV SCH (08:52)
[2021-05-30] MEDS: ENOXAPARIN 30 MG/0.3 ML SYRINGE SQ SCH (08:52)
[2021-05-30 08:58] LABS: Basophils # (A) 0.1 k/uL (0-0.2); Basophils % (A) 0 %; Calcium 8.4 mg/dL (8.4-10.2); Eosinophils % (A) 0 %; HCT 43.3 % (34.0-46.0); HGB 14.3 gm/dL (11.4-16.0); Lymphocytes # (A) 0.4 k/uL (1.0-4.8); Lymphocytes % (A) 2 %; MCH 31.6 pg (25.0-35.0); MCHC 33.1 g/dL (31.0-37.0); MCV 95.7 fL (80.0-100.0); Mean Platelet Volume 8.7; Monocytes # (A) 0.8 k/uL (0-1.0); Monocytes % (A) 5 %; Neutrophils # (A) 17.2 k/uL (1.3-7.7); Neutrophils % (A) 92 %; Platelet Count 276 k/uL (150-450); Potassium 3.1 mmol/L (3.5-5.1); RBC 4.53 m/uL (3.80-5.40); RDW 13.2 % (11.5-15.5); WBC 18.6 k/uL (3.8-10.6)
[2021-05-30] MEDS: HYDROmorphone 1 MG/ML 1 ML SYRINGE IVP PRN ×3 (11:22→21:54)
[2021-05-30] MEDS: LACTATED RINGERS 1,000 ML IV SCH (11:36)
[2021-05-30] MEDS ORDERED: POTASSIUM CHLORIDE 20 MEQ in WATER FOR INJECTION 1 100ML.BAG IVPB STA (14:28)
--- NOTE | 2021-05-30 15:01 | P.CON ---
Consult Note - . Consult date: 05/30/21 (Medical management) Assessment/Plan:: Consult dictation requested by Dr. Blevins general surgeon. History and chief complaint: Patient presented to the emergency room a 76 years old white female with the lower abdominal pain associated with nausea and vomiting and dehydration. In the ER they did a CAT scan and found that she had incarcerated right inguinal hernia. They called who did see the patient and evaluated the CAT scan with the patient finding with the leukocytosis and electrolyte imbalance patient taken to the OR immediately and the surgery was done with the with the incision and clearing the incarcerated hernia and found small bowel ischemic and he did resection and can and reconnection and the patient did well subsequently and that she has NG tube and Borjas catheter and nothing by mouth. Patient not on any medication at this time except for stabilization and IV fluid. Patient on admission she had significant dehydration and her creatinine was 2.74 and also her sodium was 132 potassium 3.4 however with the surgery on IV hydration her potassium went down today to 3.1. On the computed tomography scan was done and she found to have a dependent small calcific gallstones within the gallbladder was present however wasn't removed and because of symptoms and spleen was low normal and pancreas was normal adrenal gland was not seen and kidney found that 6-8 scattered nonobstructive lesions left renal calculi and 1-2 mm nonobstructive lower pole right renal calculus with the no evidence of hydronephrosis or obstructive or ureteral calculi bilaterally in dilated small bowel loop throughout the abdomen and pelv is extended to the level of the bowel containing right inguinal hernia and a propped. Which she also states bowel loop dilatation up to 4.5 cm. Nondistended distal small bowel loops in the right pelvis. With the uterus surgically absent no greater than 1 cm abdominal or pelvic lymph node and no significant abnormalities of the osseus structure. In the with the impression is finding consistent with distal small bowel obstruction with the bowel containing right inguinal hernia and surgical exploration was needed to immediately and that's was proceed. In the past medical history patient had history of hypertension and taken vitamin D3 and vitamin B complex. And past medical history of hyperlipidemia hypertension she had history of tumor removed from the brain in 2009 and she has multiple eye surgery and she never smoked is her in her life and as well as no alcohol reported and no surgery or drug use. Review of systems No further information more than what she stated that she had the nausea no vomiting and for 4 days prior to the admission with the underlying presence of dehydration severe with the elevated creatinine and a BUN. On the physical examination: The patient was conscious alert oriented she did not recall what happened to her and I did explain that to her today in details and on And she has NG tube in her oropharynx and nose and she had a Borjas catheter in place and she had the stitches in the anterior abdominal wall on the physical examination she is conscious alert she is nothing by mouth and she had facial deviation with the base with the past history of tumor was removed and some other surgery done on the jaw and the swallowing. The neck was supple no JVD no thyromegaly no lymphadenopathy trachea midline the chest was clear to auscultation and percussion and the heart was regular sinus rhythm and no dysrhythmia she has history of echocardiogram was her resulted that was dated on 12/07/2018 and her ejection fraction was 55% she had a mild concentric left ventricular hypertrophy and she had a mild mitral regurg and also also calcified aortic valve and no aortic regurgitation agitation and she had a [id number] tricuspid regurgitation and she had also normal pericardium in that date as well this echocardiogram was signed by Dr. DIANA Hayes. Her abdomen is under with the incision in the lower abdomen and no bowel sounds at this time. And no distention. The extremities she has antithrombotic stockings as well as no edema and positive pulses. No neurological deficit. And Assessment #1 small bowel obstruction with incarcerated right inguinal hernia and is some ischemia of the bowel status post resection and anastomosis. #2 her hemodynamically controlled, history of hypertension. #3 patient in nothing by mouth. #4 UTI culture was not done Will follow up with the Plan: Will start the adding to the IV fluid potassium supplementation with 20 mEq per liter as well as potassium supplementation per protocol. And physical therapy and rehabilitation will be started. Reviewing of the urine she had high WBC in the urine and we consulted the presence of UTI considered however culture was not done and patient had already Rocephin and will continue empirically Rocephin 1 g every 12 hours with the adding to the diagnoses UTI according to the urine analysis only.
--- NOTE | 2021-05-30 15:30 | P.PN ---
Subjective Progress Note Date: 05/30/21 CHIEF COMPLAINT: Abdominal pain HISTORY OF PRESENT ILLNESS: Patient is postop day #1 status post exploratory laparotomy, small bowel resection and repair of strangulated right inguinal hernia. Patient is complaining of pain this morning. Patient had not been receiving the full 1 mg IV Dilaudid. She had NG tube in place. Denies any flatus. She did admit to some nausea. Afebrile. She has had some mild tachycardia. WBC is down from 22.5-18.6 hemoglobin 14.3 sodium 138 potassium 3.1 creatinine 2.08 urine culture pending PHYSICAL EXAM: VITAL SIGNS: Reviewed. GENERAL: Well-developed in no acute distress. HEENT: No sclera icterus. Extraocular movements grossly intact. Moist buccal mucosa. Head is atraumatic, normocephalic. ABDOMEN: Soft. Nondistended. Nontender. NEUROLOGIC: Alert and oriented. Cranial nerves II through XII grossly intact. ASSESSMENT: 1. Right incarcerated inguinal hernia causing distal small bowel obstruction status post exploratory laparotomy, small bowel resection and repair of strict related renal hernia 2. Hypokalemia 3. Acute kidney injury due to dehydration PLAN: -Discontinue NG tube -Keep patient nothing by mouth except for ice chips -Pain medication has been addressed -Potassium being replaced -Continue IV fluids -Check magnesium level -GI prophylaxis Protonix and DVT prophylaxis Lovenox Physician Conditioning Yard Supervisor note has been reviewed by physician. Signing provider agrees with the documented findings, assessment, and plan of care. Objective - Vital Signs Vital signs: Vital Signs Temp 97.9 F 05/30/21 11:38 Pulse 106 H 05/30/21 11:38 Resp 18 05/30/21 11:38 BP 104/63 05/30/21 11:38 Pulse Ox 94 L 05/30/21 11:38 Intake & Output 05/29/21 05/30/21 05/30/21 18:59 06:59 18:59 Intake Total 925 50 Output Total 1750 375 400 Balance -825 -325 -400 Weight 57.606 kg Intake: IV 925 50 Output: Gastric Drainage 1650 Urine 50 375 400 Estimated Blood Loss 50 Other: Voiding Method Indwelling Catheter Indwelling Catheter - Labs CBC & Chem 7: 05/30/21 08:20 05/30/21 08:20 Labs: Abnormal Lab Results - Last 24 Hours (Table) 05/30/21 05/30/21 Range/Units 08:20 08:20 WBC 18.6 H (3.8-10.6) k/uL Neutrophils # 17.2 H (1.3-7.7) k/uL Lymphocytes # 0.4 L (1.0-4.8) k/uL Potassium 3.1 L (3.5-5.1) mmol/L Carbon Dioxide 18 L (22-30) mmol/L BUN 89 H (7-17) mg/dL Creatinine 2.08 H (0.52-1.04) mg/dL Microbiology - Last 24 Hours (Table) 05/29/21 14:05 Urine Culture - Preliminary Urine,Catheterized
[2021-05-31] MEDS: HYDROmorphone 1 MG/ML 1 ML SYRINGE IVP PRN ×3 (04:27→12:54)
[2021-05-31] MEDS: SODIUM CHLORIDE 0.9% 1,000 ML IV SCH ×5 (06:09→17:27)
[2021-05-31 08:24] LABS: Basophils % (A) 0 %; Eosinophils % (A) 0 %; HCT 42.1 % (34.0-46.0); HGB 13.4 gm/dL (11.4-16.0); Hypochromasia Slight; Lymphocytes # (A) 0.4 k/uL (1.0-4.8); Lymphocytes % (A) 3 %; MCH 31.7 pg (25.0-35.0); MCHC 31.9 g/dL (31.0-37.0); MCV 99.2 fL (80.0-100.0); Mean Platelet Volume 8.6; Monocytes # (A) 0.7 k/uL (0-1.0); Monocytes % (A) 5 %; Neutrophils # (A) 11.4 k/uL (1.3-7.7); Neutrophils % (A) 90 %; Platelet Count 290 k/uL (150-450); RBC 4.24 m/uL (3.80-5.40); RDW 13.8 % (11.5-15.5); WBC 12.6 k/uL (3.8-10.6)
[2021-05-31 08:43] LABS: Magnesium 2.5 mg/dL (1.6-2.3); Potassium 3.2 mmol/L (3.5-5.1)
[2021-05-31] MEDS: ENOXAPARIN 30 MG/0.3 ML SYRINGE SQ SCH (08:58)
[2021-05-31] MEDS: PANTOPRAZOLE 40 MG/10 ML VIAL IV SCH (08:58)
[2021-05-31] MEDS: ONDANSETRON 4 MG/2 ML VIAL IVP PRN (09:09)
[2021-05-31] MEDS ORDERED: MINERAL OIL-WHITE PETROLATUM 120 GM JAR TOPICAL PRN (10:13)
[2021-05-31] MEDS ORDERED: HYDROmorphone 0.5 MG/0.5 ML SYRINGE IVP PRN (10:18)
--- NOTE | 2021-05-31 11:05 | P.PN ---
Subjective Progress Note Date: 05/31/21 CHIEF COMPLAINT: Abdominal pain HISTORY OF PRESENT ILLNESS: Patient is postop day #2 status post exploratory laparotomy, small bowel resection and repair of strangulated right inguinal hernia. Patient still complaining of abdominal pain. She does report that the Dilaudid does help but she is requiring every 3 hours. Denies any flatus or bowel movement. She is having some nausea. Zofran is helping. Afebrile. Mild tachycardia heart rate 102. WBC trending down from 18.6-12.6 hemoglobin 13.4 sodium 146 potassium 3.2 creatinine 1.18 magnesium 2.5 urine culture no growth PHYSICAL EXAM: VITAL SIGNS: Reviewed. GENERAL: Well-developed in no acute distress. HEENT: No sclera icterus. Extraocular movements grossly intact. Moist buccal mucosa. Head is atraumatic, normocephalic. ABDOMEN: Mildly distended. Diffuse tenderness. Incision site with dried blood at distal aspect on dressing NEUROLOGIC: Alert and oriented. Cranial nerves II through XII grossly intact. ASSESSMENT: 1. Right incarcerated inguinal hernia causing distal small bowel obstruction status post exploratory laparotomy, small bowel resection and repair of strict related renal hernia 2. Hypokalemia 3. Acute kidney injury due to dehydration PLAN: -Keep patient nothing by mouth except for ice chips -Add scheduled IV Tylenol -Continue IV Diluadid 1 mg every 3 hours for pain and adjust dilaudid 0.5 IV q 2 hours PRN pain -Potassium being replaced -Continue IV fluids -Encouraged patient ambulate -Encouraged patient to use incentive spirometer -Patient can be transferred to regular medical surgical floor with telemetry -GI prophylaxis Protonix and DVT prophylaxis Lovenox Physician B2B Sales Consultant note has been reviewed by physician. Signing provider agrees with the documented findings, assessment, and plan of care. Objective - Vital Signs Vital signs: Vital Signs Temp 97.4 F L 05/31/21 04:31 Pulse 102 H 05/31/21 04:31 Resp 18 05/31/21 04:31 BP 121/62 05/31/21 04:31 Pulse Ox 91 L 05/31/21 04:31 Intake & Output 05/30/21 05/31/21 05/31/21 18:59 06:59 18:59 Output Total 1800 1100 Balance -1800 -1100 Weight 45 kg Output: Urine 1800 1100 Other: Voiding Method Indwelling Catheter Indwelling Catheter - Labs CBC & Chem 7: 05/31/21 07:29 05/31/21 07:29 Labs: Abnormal Lab Results - Last 24 Hours (Table) 05/31/21 05/31/21 Range/Units 07:29 07:29 WBC 12.6 H (3.8-10.6) k/uL Neutrophils # 11.4 H (1.3-7.7) k/uL Lymphocytes # 0.4 L (1.0-4.8) k/uL Sodium 146 H (137-145) mmol/L Potassium 3.2 L (3.5-5.1) mmol/L Chloride 111 H (98-107) mmol/L BUN 65 H (7-17) mg/dL Creatinine 1.18 H (0.52-1.04) mg/dL Magnesium 2.5 H (1.6-2.3) mg/dL Microbiology - Last 24 Hours (Table) 05/29/21 14:05 Urine Culture - Final Urine,Catheterized
[2021-05-31] MEDS ORDERED: ACETAMINOPHEN IV (For NPO) 1,000 MG in EMPTY BAG 1 BAG IVPB SCH (12:00)
[2021-05-31] MEDS: ACETAMINOPHEN IV (For NPO) 675 MG in EMPTY BAG 1 BAG IVPB SCH ×3 (12:52→23:38)
[2021-05-31] MEDS: POTASSIUM CHLORIDE 10 MEQ in WATER FOR INJECTION 1 100ML.BAG IVPB SCH ×4 (12:53→19:12)
--- NOTE | 2021-05-31 16:59 | P.PN ---
Subjective Progress Note Date: 05/31/21 (Small bowel obstruction, due to right inguinal hernia incarceration or small bowel.) Progress note dictation by Dr. Gramajo date of service 05/31/2021 Patient seen and evaluated [id number]. Patient postoperative admitted to the 3 S. behavioral health consultant floor. Patient seen and evaluated today. Patient appears to be clinically improving status post exploratory laparotomy with repair of the hernia with incarceration and systemic small bowel underwent resection. When patient admitted to the hospital through the ER she was in severe abdominal pain a CAT scan was indicating acute event subsequently patient taken to the OR and operated upon Patient at the time of admission found to have acute kidney injury secondary to severe dehydration with nausea and vomiting with the association with the pain and ischemia in the white count was extremely high 22.5. Since the surgery patient started to feel better and to communicate able to speak and discuss and initiate. Which indicated to me that definitely patient improved's Therese patient has no flatus or gas to be passed, her bowel sounds still silent. And she has tenderness on the surgery which is expected. Laboratory metabolically her white count was on admission 22.5 dropped to 12.6. Her creatinine was 2.74 drop to 1.18 with the hydration patient still nothing by mouth except ice chips. With no nausea or vomiting Her blood sugar was 142 on admission and currently 91 which is normal. Urine was positive for moderate leukocyte negative nitrite with increased WBC to 46, in the ER patient received 2 g of Rocephin, subsequent urine culture was ne gative patient still on the antibiotic for the UTI with the underlying leukocytosis Currently her sodium 146, potassium 3.2:, Chloride 111, carbon dioxide was 22 which is significantly improved with the mild metabolic acidosis at the time of admission Magnesium is elevated 2.5, she had negative Covid test. On the physical examination: Patient was conscious alert oriented able to communicate and she has some upper partial lower partial with history of surgery on her left side of the face as well as she had history of tumor was removed from the brain. Neck was supple no JVD no thyromegaly no lymphadenopathy trachea midline. Chest is clear breath sounds no wheezes no rhonchi's no cough. No rales. Heart, regular sinus rhythm no dysrhythmia Abdomenn positive tenderness at the site of the surgery which covered with dressing no bowel sound and no flatus passed no bowel movement. Extremities: She had a thrombotic stocking, the DVT prophylaxis, She had a Borjas catheter Neurology no new events conscious alert oriented. Assessment: #1 patient appears to be clinically improving post surgical intervention with the underlying right hernia incarceration and ischemic small bowel. #2 a KCI secondary to severe nausea and vomiting and dehydration which improved with hydration but not yet reaching the baseline. #3 consideration of urinary tract infection and antibiotic IV continued. Plan: #1 continue hydration #2 continue the antibiotic at least for 3 days post surgery. Potassium supplementation per protocol which ordered yesterday Obtain laboratory in a.m. Objective - Vital Signs Vital signs: Vital Signs Temp 97.2 F L 05/31/21 08:00 Pulse 113 H 05/31/21 14:00 Resp 18 05/31/21 08:00 BP 126/73 05/31/21 08:00 Pulse Ox 97 05/31/21 14:00 Intake & Output 05/30/21 05/31/21 05/31/21 18:59 06:59 18:59 Output Total 1800 1100 Balance -1800 -1100 Weight 45 kg Output: Urine 1800 1100 Other: Voiding Method Indwelling Catheter Indwelling Catheter Indwelling Catheter - Labs CBC & Chem 7: 05/31/21 07:29 05/31/21 07:29 Labs: Abnormal Lab Results - Last 24 Hours (Table) 05/31/21 05/31/21 Range/Units 07:29 07:29 WBC 12.6 H (3.8-10.6) k/uL Neutrophils # 11.4 H (1.3-7.7) k/uL Lymphocytes # 0.4 L (1.0-4.8) k/uL Sodium 146 H (137-145) mmol/L Potassium 3.2 L (3.5-5.1) mmol/L Chloride 111 H (98-107) mmol/L BUN 65 H (7-17) mg/dL Creatinine 1.18 H (0.52-1.04) mg/dL Magnesium 2.5 H (1.6-2.3) mg/dL Microbiology - Last 24 Hours (Table) 05/29/21 14:05 Urine Culture - Final Urine,Catheterized
[2021-05-31] MEDS: LACTATED RINGERS 1,000 ML IV SCH (17:24)
[2021-06-01] MEDS: SODIUM CHLORIDE 0.9% 1,000 ML IV SCH ×4 (00:45→13:06)
[2021-06-01] MEDS: HYDROmorphone 1 MG/ML 1 ML SYRINGE IVP PRN (02:24)
[2021-06-01] MEDS: ONDANSETRON 4 MG/2 ML VIAL IVP PRN (02:25)
[2021-06-01] MEDS: ACETAMINOPHEN IV (For NPO) 675 MG in EMPTY BAG 1 BAG IVPB SCH (05:15)
[2021-06-01 07:58] LABS: Basophils % (A) 0 %; Eosinophils % (A) 0 %; HCT 44.8 % (34.0-46.0); HGB 13.7 gm/dL (11.4-16.0); Hypochromasia Moderate; Lymphocytes # (A) 0.5 k/uL (1.0-4.8); Lymphocytes % (A) 4 %; MCH 30.7 pg (25.0-35.0); MCHC 30.5 g/dL (31.0-37.0); MCV 100.5 fL (80.0-100.0); Macrocytosis Slight; Mean Platelet Volume 8.7; Monocytes # (A) 0.5 k/uL (0-1.0); Monocytes % (A) 5 %; Neutrophils # (A) 10.4 k/uL (1.3-7.7); Neutrophils % (A) 89 %; Platelet Count 282 k/uL (150-450); RBC 4.46 m/uL (3.80-5.40); RDW 13.8 % (11.5-15.5); WBC 11.6 k/uL (3.8-10.6)
[2021-06-01] MEDS: ENOXAPARIN 30 MG/0.3 ML SYRINGE SQ SCH (08:37)
[2021-06-01] MEDS: PANTOPRAZOLE 40 MG/10 ML VIAL IV SCH (08:37)
[2021-06-01 10:55] LABS: Anion Gap 12.6 mmol/L (10.00-18.00); BUN/Creat Ratio 47.66 Ratio (12.00-20.00); Blood Urea Nitrogen 38.7 mg/dL (9.0-27.0); Calcium 9.2 mg/dL (8.7-10.3); Carbon Dioxide 24.3 mmol/L (20.0-27.5); Non-African American GFR(CKD) 69.8 (60.0-200.0); Potassium 3.4 mmol/L (3.5-5.5)
[2021-06-01 13:08] VITALS: BMI 15.0
[2021-06-01] MEDS ORDERED: POTASSIUM CHLORIDE ER 20 MEQ TAB.ER PO STA (13:28)
--- NOTE | 2021-06-01 13:34 | P.PN ---
Subjective Progress Note Date: 06/01/21 CHIEF COMPLAINT: Abdominal pain HISTORY OF PRESENT ILLNESS: Patient is postop day #3 status post exploratory laparotomy, small bowel resection and repair of strangulated right inguinal hernia. Patient reports her abdominal pain is better controlled today. Denies any nausea or vomiting. Denies any flatus or BM. She is sitting up at bedside chair. Afebrile mild tachycardia. WBC down to 11.6 HGB 13.7 sodium 147 potassium is 3.4 creatinine improved at 0.8 PHYSICAL EXAM: VITAL SIGNS: Reviewed. GENERAL: Well-developed in no acute distress. HEENT: No sclera icterus. Extraocular movements grossly intact. Moist buccal mucosa. Head is atraumatic, normocephalic. ABDOMEN: Mildly distended. Diffuse tenderness. Incision site with dried blood at distal aspect on dressing NEUROLOGIC: Alert and oriented. Cranial nerves II through XII grossly intact. ASSESSMENT: 1. Right incarcerated inguinal hernia causing distal small bowel obstruction status post exploratory laparotomy, small bowel resection and repair of strict related renal hernia 2. Hypokalemia 3. Acute kidney injury due to dehydration. Improved PLAN: -Advance diet to full liquids -Replace potassium -Heplock IV -add [place] for po pain med -Encouraged patient ambulate -Encouraged patient to use incentive spirometer -GI prophylaxis Protonix and DVT prophylaxis Lovenox Physician Environmental Health And Safety Manager note has been reviewed by physician. Signing provider agrees with the documented findings, assessment, and plan of care. Objective - Vital Signs Vital signs: Vital Signs Temp 97.4 F L 06/01/21 04:11 Pulse 99 06/01/21 04:11 Resp 18 06/01/21 04:11 BP 127/64 06/01/21 04:11 Pulse Ox 97 06/01/21 04:11 Intake & Output 05/31/21 06/01/21 06/01/21 18:59 06:59 18:59 Intake Total 820 1400 Output Total 1600 Balance 820 -200 Weight 45 kg Intake: Intake, IV Titration 200 1400 Amount ACETAMINOPHEN IV (For NPO 100 ) 675 mg In Empty Bag 1 bag @ 400 mls/hr IVPB Q6HR [facility] Rx#:[id number] Potassium Chloride 10 meq 100 In Water For Injection 1 100ml.bag @ 100 mls/hr IVPB Q1HR [facility] Rx#: [id number] Sodium Chloride 0.9% 1, 1400 000 ml @ 130 mls/hr IV . Q7H42M [facility] Rx#:[id number] Oral 620 Output: Urine 1600 Uretheral (Borjas) 800 Other: Voiding Method Indwelling Catheter Indwelling Catheter - Labs CBC & Chem 7: 06/01/21 07:17 06/01/21 07:17 Labs: Abnormal Lab Results - Last 24 Hours (Table) 06/01/21 06/01/21 Range/Units 07:17 07:17 WBC 11.6 H (3.8-10.6) k/uL MCV 100.5 H (80.0-100.0) fL MCHC 30.5 L (31.0-37.0) g/dL Neutrophils # 10.4 H (1.3-7.7) k/uL Lymphocytes # 0.5 L (1.0-4.8) k/uL Sodium 147 H (135-145) mmol/L Potassium 3.4 L (3.5-5.5) mmol/L Chloride 110 H (96-109) mmol/L BUN 38.7 H (9.0-27.0) mg/dL BUN/Creatinine Ratio 47.66 H (12.00-20.00) Ratio Glucose 114 H (70-110) mg/dL
[2021-06-01] MEDS ORDERED: Potassium Replacement Protocol 1 EACH MISC MISCELLANE PRN ×2 (13:36→14:07)
[2021-06-01] MEDS: LACTATED RINGERS 1,000 ML IV SCH (13:50)
[2021-06-01] MEDS: POTASSIUM CHLORIDE 10 MEQ in WATER FOR INJECTION 1 100ML.BAG IVPB SCH ×4 (14:35→23:41)
--- NOTE | 2021-06-01 15:22 | P.PN ---
Subjective Progress Note Date: 06/01/21 (Status post small bowel obstruction with incarcerated right inguinal hernia) Progress note Dictated by Dr. Fitch Date of service 06/01/2021. Patient seen and evaluated [id number]. Patient currently feeling better she able to urinate Borjas cath for was removed. And she able to use the commode. No activity on the abdomen, not passing gases, no bowel movement. She is getting full liquid diet started today her surgical team. Her vital sign indicating temperature 97.4 F oral heart rate 99 beats per mi nutes and regular sinus, respiratory rate 18/m, blood pressure 127/64 with a mean pressure 85.Oxygen saturation 97% on room air. Laboratory today CBC WBC down to 11.6, her hemoglobin 13.7, hematocrit 44.8, MCV 100.5 and a platelet count 282 with the underlying moderate hypochromasia, macrocytosis. Chemistry: Her sodium 147 mild elevation potassium 3.4 covered with potassium protocol IV due to patient inability to swallow the big pill of potassium Chloride 110, carbon dioxide corrected 24.3 was 18 on on 05/30/2021 BUN 38.7, creatinine 0.8, and GFR 69.8 marketed improvement on her electrolyte w ith the hydration. However patient her BUN creatinine ratio still high 47.66. We'll continue with the hydration. Her glucose 114 her calcium 9.2. On examination: Patient was conscious alert oriented, she wearing her dentures. 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 Chest is clear to auscultation and percussion with the acidemic at all and kyphoscoliosis. Heart was regular sinus rhythm. Abdomen: Tender status post exploratory laparotomy with the ischemic bowel and incarcerated right inguinal hernia with the small bowel. Still bowel sound is not present at this time Extremities: No edema positive pulses. Neurologically stable and patient was transferred from the third the floor telemetry to [address] [place] [address] Neurologically stable. Assessment: #1 hyperkalemia covered with the potassium protocol. #2 underlying acute kidney injury secondary to prerenal has been progressively improved and a creatinine reaching the baseline but still with the no intake she still dehydrated with the BUN and creatinine ratio is 47.66. #3 she has macrocytosis, with the possibility associated with not eating with the surgery and her current illness and we will be checking on vitamin B12, folic acid, Malonic acid and homocysteine Plan: #1 supplementation of the potassium with protocol #2 continue hydration however if the sodium continued to be elevated we'll have to change the normal saline to lactated Ringer, BMP will be done tomorrow as well as CBC. #3 will be checking on macrocytosis with the underlying possible deficiency and folic acid or vitamin B12. With the underlying bowel resection Objective - Vital Signs Vital signs: Vital Signs Temp 97.4 F L 06/01/21 04:11 Pulse 99 06/01/21 04:11 Resp 18 06/01/21 04:11 BP 127/64 06/01/21 04:11 Pulse Ox 97 06/01/21 04:11 Intake & Output 05/31/21 06/01/21 06/01/21 18:59 06:59 18:59 Intake Total 820 1400 Output Total 1600 Balance 820 -200 Weight 45 kg Intake: Intake, IV Titration 200 1400 Amount ACETAMINOPHEN IV (For NPO 100 ) 675 mg In Empty Bag 1 bag @ 400 mls/hr IVPB Q6HR [facility] Rx#:[id number] Potassium Chloride 10 meq 100 In Water For Injection 1 100ml.bag @ 100 mls/hr IVPB Q1HR [facility] Rx#: [id number] Sodium Chloride 0.9% 1, 1400 000 ml @ 130 mls/hr IV . Q7H42M [facility] Rx#:[id number] Oral 620 Output: Urine 1600 Uretheral (Borjas) 800 Other: Voiding Method Indwelling Catheter Indwelling Catheter - Labs CBC & Chem 7: 06/01/21 07:17 06/01/21 07:17 Labs: Abnormal Lab Results - Last 24 Hours (Table) 06/01/21 06/01/21 Range/Units 07:17 07:17 WBC 11.6 H (3.8-10.6) k/uL MCV 100.5 H (80.0-100.0) fL MCHC 30.5 L (31.0-37.0) g/dL Neutrophils # 10.4 H (1.3-7.7) k/uL Lymphocytes # 0.5 L (1.0-4.8) k/uL Sodium 147 H (135-145) mmol/L Potassium 3.4 L (3.5-5.5) mmol/L Chloride 110 H (96-109) mmol/L BUN 38.7 H (9.0-27.0) mg/dL BUN/Creatinine Ratio 47.66 H (12.00-20.00) Ratio Glucose 114 H (70-110) mg/dL
[2021-06-01] MEDS: HYDROcodone/APAP 5-325MG 1 EACH TAB PO PRN (21:40)
[2021-06-02 06:40] LABS: Basophils % (A) 0 %; Eosinophils # (A) 0.1 k/uL (0-0.7); Eosinophils % (A) 1 %; HCT 41.8 % (34.0-46.0); HGB 13.4 gm/dL (11.4-16.0); Lymphocytes # (A) 0.7 k/uL (1.0-4.8); Lymphocytes % (A) 8 %; MCH 31.4 pg (25.0-35.0); MCHC 32.1 g/dL (31.0-37.0); MCV 97.7 fL (80.0-100.0); Mean Platelet Volume 8.8; Monocytes # (A) 0.5 k/uL (0-1.0); Monocytes % (A) 6 %; Neutrophils # (A) 7.2 k/uL (1.3-7.7); Neutrophils % (A) 84 %; Platelet Count 251 k/uL (150-450); RBC 4.28 m/uL (3.80-5.40); RDW 13.3 % (11.5-15.5); WBC 8.6 k/uL (3.8-10.6)
[2021-06-02] MEDS: PANTOPRAZOLE 40 MG/10 ML VIAL IV SCH (08:41)
[2021-06-02] MEDS: ENOXAPARIN 30 MG/0.3 ML SYRINGE SQ SCH (08:41)
[2021-06-02 09:37] LABS: African American GFR (CKD) 101.9 (60.0-200.0); BUN/Creat Ratio 36.33 Ratio (12.00-20.00); Blood Urea Nitrogen 21.8 mg/dL (9.0-27.0); Calcium 8.7 mg/dL (8.7-10.3); Chloride 112 mmol/L (96-109); Glucose 111 mg/dL (70-110); Non-African American GFR(CKD) 87.9 (60.0-200.0); Potassium 3.7 mmol/L (3.5-5.5); Sodium 148 mmol/L (135-145); Vitamin B12 >2000.0 pg/mL (200.0-944.0)
[2021-06-02] MEDS: ONDANSETRON 4 MG/2 ML VIAL IVP PRN (09:54)
--- NOTE | 2021-06-02 14:22 | P.PN ---
Subjective Progress Note Date: 06/02/21 (Status post incarcerated hernia with small bowel obstruction, and resection and anastomosis of small bowel.) Progress note date of service 06/02/2021. Patient seen and evaluated [id number] Patient stated that she had several bowel movements dressing dresses and she was started on full liquid diet and the advancing her diet gradually over the surgical team. Vital signs stable temperature 97.8 F oral. Heart rate 101. Respiratory rate 16 nonlabored, blood pressure 132/76 with a mean blood pressure 94, pulse ox 97% on room air. Patient did not start her old medication for hypertension at this time she does not need it however when the patient resumed her diet she may need that medication. Laboratory: Her white count normalized 8.6 hemoglobin 13.4, hematocrit 41.8 platelet count 251. With no need for antibiotic as she has been received it for 3 days. Sodium 148 with hyper natremia and potassium normalized 3.7 her chloride is 112 carbon dioxide 31. And her BUN 21 and creatinine 0.6. Glucose 111, vitamin B12 more than 2039 [place] 14.9 Patient feeling much better and have some soft diet and jealous she had some nausea earlier but resolved. On exam conscious alert oriented 3 HEENT no changes, oropharynx was normal Neck was supple no JVD Chest was clear to auscultation and percussion was kyphoscoliosis and symmetry. Heart was regular sinus rhythm underlying mild tachycardia, Abdomen mild tenderness for the scar and incision, positive bowel sounds, extremities no edema. Pulses. Neurologically stable. Assessment: #1 patient status post small bowel obstruction with incarcerated the right inguinal hernia and ischemic bowel which underwent surgery by Dr. cowart. #2 markedly recovery #3 hyper natremia. #4 hypertension which is controlled at this time without medication. Plan: #1 because of sodium has been progressive elevation and patient on lactated Ringer we'll discontinue that and start her on D5 W and monitor the sodium. #2 renal function. Reverse was secondary to dehydration with the underlying on admission acute kidney injury. With the BUN 21.8 creatinine 0.6 EGFR 87.9 which is normalized for the patient. #3 we'll obtain BNP in a.m. to monitor the hyper natremia the sodium 148 with the change of the IV fluids. Objective - Vital Signs Vital signs: Vital Signs Temp 97.8 F 06/02/21 11:32 Pulse 101 H 06/02/21 11:32 Resp 16 06/02/21 11:32 BP 132/76 06/02/21 11:32 Pulse Ox 97 06/02/21 11:32 Intake & Output 06/01/21 06/02/21 06/02/21 18:59 06:59 18:59 Intake Total 1020 850 Balance 1020 850 Weight 45 kg Intake: Intake, IV Titration 400 250 Amount Potassium Chloride 10 meq 400 200 In Water For Injection 1 100ml.bag @ 100 mls/hr IVPB Q1HR [facility] Rx#: [id number] cefTRIAXone 1 gm In 50 Sodium Chloride 0.9% 50 ml @ 100 mls/hr IVPB Q12HR [facility] Rx#:[id number] Oral 620 600 Other: Voiding Method Indwelling Catheter Bedside Commode Bedside Commode # Voids 1 # Bowel Movements 1 1 - Labs CBC & Chem 7: 06/02/21 06:18 06/02/21 06:18 Labs: Abnormal Lab Results - Last 24 Hours (Table) 06/02/21 06/02/21 Range/Units 06:18 06:18 Lymphocytes # 0.7 L (1.0-4.8) k/uL Sodium 148 H (135-145) mmol/L Chloride 112 H (96-109) mmol/L Carbon Dioxide 31.0 H (20.0-27.5) mmol/L Anion Gap 5.00 L (10.00-18.00) mmol/L BUN/Creatinine Ratio 36.33 H (12.00-20.00) Ratio Glucose 111 H (70-110) mg/dL Vitamin B12 >2000.0 H (200.0-944.0) pg/mL
[2021-06-02] MEDS ORDERED: DEXTROSE 5%-0.2% NACL 1,000 ML IV SCH (14:30)
[2021-06-02] MEDS: DEXTROSE 5% IN WATER 1,000 ML IV SCH (14:36)
[2021-06-02] MEDS ORDERED: DEXTROSE 5%-0.2% NACL 500 ML IV SCH (15:00)
[2021-06-02] MEDS: LORazepam 2 MG/ML INJ IV PRN (15:06)
[2021-06-02] MEDS: HYDROmorphone 1 MG/ML 1 ML SYRINGE IVP PRN (22:28)
[2021-06-03] MEDS: ENOXAPARIN 30 MG/0.3 ML SYRINGE SQ SCH (08:28)
[2021-06-03] MEDS: PANTOPRAZOLE 40 MG/10 ML VIAL IV SCH (08:28)
[2021-06-03] MEDS: DEXTROSE 5% IN WATER 1,000 ML IV SCH (08:28)
[2021-06-03 08:54] LABS: African American GFR (CKD) 108.2 (60.0-200.0); Anion Gap 8.4 mmol/L (10.00-18.00); BUN/Creat Ratio 24.6 Ratio (12.00-20.00); Blood Urea Nitrogen 12.3 mg/dL (9.0-27.0); Calcium 8.2 mg/dL (8.7-10.3); Carbon Dioxide 25.6 mmol/L (20.0-27.5); Non-African American GFR(CKD) 93.4 (60.0-200.0); Potassium 3.4 mmol/L (3.5-5.5)
[2021-06-03] MEDS: POTASSIUM BICARBONATE/CIT AC 20 MEQ TABLET.EFF NG-TUBE SCH ×2 (09:54→11:04)
--- NOTE | 2021-06-03 12:01 | P.PN ---
Progress Note - Text Progress Note Date: 06/03/21 Patient's feels she's doing better. On exam vital signs are stable. Abdomen soft. Incision is clean and intact. Status post small bowel resection for strangulated right inguinal hernia. Patient will slowly advance her diet. She is progressing slowly.
--- NOTE | 2021-06-03 12:02 | P.PN ---
Progress Note - Text Progress Note Date: 06/03/21 Patient is stable. There are no acute changes. On exam vital signs are stable. Abdomen soft. Patient will have her diet advanced slowly.
[2021-06-03] MEDS: HYDROmorphone 1 MG/ML 1 ML SYRINGE IVP PRN ×2 (14:10→20:18)
--- NOTE | 2021-06-03 14:11 | P.PN ---
Subjective Progress Note Date: 06/03/21 (Hyper natremia resolved) Progress note, date of service 05/24/[address] Fitch Patient seen and evaluated [id number] Temperature 98.3 to 4, heart rate 105, respiratory rate 16, blood pressure 131/76 pulse ox 96% on room air. On exam: Patient conscious alert oriented 3 status post incarcerated right inguinal hernia with the small bowel ischemia which underwent repair and resection. Blood pressure is controlled currently no medication, severe dehydration, and acute kidney injury has resolved was due to dehydration and associated with nausea and vomiting for 3-4 days prior to the presentation in the emergency room. On exam patient conscious alert oriented 3 no neurological finding. Neck was supple no JVD no thyromegaly no lymphadenopathy trachea midline. Chest was clear to auscultation percussion wheezes no rhonchi's Heart was regular sinus rhythm. He had abdomen soft however she had positive bowel sound several bowel movement and she is not aggressive on her diet and she wants to be slowly eating as she can eat comfortable. Extremities no edema. Pulses. Neurologically stable. Laboratory indicating sodium down from 148-141 which is normal range however she has potassium 3.4 with the potassium supplement per protocol was ordered prior to that and his creatinine is 0.5 with the BUN 12.3 and her estimated GFR Assessment: The hypokalemia, with potassium per protocol. Sodium with a hyper natremia has been corrected to normal sodium level. The acute kidney injury with the associated dehydration. Renal has been corrected with the renal function is stable. Status post incarcerated right inguinal hernia with ischemic small bowel has been resected and anastomosis and patient currently has bowel sounds and start the diet pill liquid diet. Occasional nausea. Continue supportive care, we'll cut down IV fluids from 50 mL an hour to 20 mL an hour. And ambulate as tolerate. Dictation on the road of recovery. Objective - Vital Signs Vital signs: Vital Signs Temp 98.3 F 06/03/21 11: Pulse 105 H 06/03/21 11:22 Resp 16 06/03/21 11:22 BP 131/76 06/03/21 11:22 Pulse Ox 96 06/03/21 11:22 Intake & Output 06/02/21 06/03/21 06/03/21 18:59 06:59 18:59 Intake Total 150 400 Balance 150 400 Intake: Intake, IV Titration 150 400 Amount Dextrose 5% in Water 1, 150 400 000 ml @ 50 mls/hr IV . Q20H [facility] Rx#:[id number] Other: Voiding Method Bedside Commode Diaper Diaper Incontinent Incontinent # Voids 1 1 # Bowel Movements 1 1 - Labs CBC & Chem 7: 06/02/21 06:18 06/03/21 06:28 Labs: Abnormal Lab Results - Last 24 Hours (Table) 06/03/21 Range/Units 06:28 Potassium 3.4 L (3.5-5.5) mmol/L Anion Gap 8.40 L (10.00-18.00) mmol/L Creatinine 0.5 L (0.6-1.5) mg/dL BUN/Creatinine Ratio 24.60 H (12.00-20.00) Ratio Glucose 113 H (70-110) mg/dL Calcium 8.2 L (8.7-10.3) mg/dL
[2021-06-03] MEDS ORDERED: POTASSIUM BICARBONATE/CIT AC 20 MEQ TABLET.EFF NG-TUBE ONE (16:30)
[2021-06-04] MEDS: HYDROmorphone 1 MG/ML 1 ML SYRINGE IVP PRN ×4 (01:15→19:26)
[2021-06-04] MEDS: DEXTROSE 5% IN WATER 1,000 ML IV SCH (07:36)
[2021-06-04 07:58] LABS: ALT 19 U/L (4-34); AST 25 U/L (14-36); African American GFR (CKD) >90 (>60 ml/min/1.73 sqM); Albumin 2.5 g/dL (3.5-5.0); Alkaline Phosphatase 76 U/L (38-126); Anion Gap 1 mmol/L; Blood Urea Nitrogen 9 mg/dL (7-17); Calcium 8.5 mg/dL (8.4-10.2); Carbon Dioxide 34 mmol/L (22-30); Chloride 100 mmol/L (98-107); Globulin 2.4 g/dL; Glucose 103 mg/dL (74-99); Non-African American GFR(CKD) >90 (>60 ml/min/1.73 sqM); Potassium 3.6 mmol/L (3.5-5.1); Sodium 135 mmol/L (137-145); Total Bilirubin 0.7 mg/dL (0.2-1.3); Total Protein 4.9 g/dL (6.3-8.2)
[2021-06-04] MEDS: PANTOPRAZOLE 40 MG/10 ML VIAL IV SCH (08:47)
[2021-06-04] MEDS: ENOXAPARIN 30 MG/0.3 ML SYRINGE SQ SCH (08:48)
[2021-06-04] MEDS ORDERED: POTASSIUM CHLORIDE ER 20 MEQ TAB.ER PO STA (09:20)
[2021-06-04] MEDS ORDERED: POTASSIUM BICARBONATE/CIT AC 20 MEQ TABLET.EFF PO ONE (09:30)
[2021-06-04] MEDS: SODIUM CHLORIDE 0.9% 1,000 ML IV SCH (09:48)
[2021-06-04] MEDS: METOPROLOL TARTRATE 25 MG TAB PO SCH ×3 (09:48→21:10)
[2021-06-04] MEDS: ONDANSETRON 4 MG/2 ML VIAL IVP PRN ×2 (11:50→22:34)
[2021-06-04] MEDS ORDERED: SODIUM CHLORIDE 0.9% 1,000 ML IV ONE (13:24)
--- NOTE | 2021-06-04 15:17 | P.PN ---
Subjective Progress Note Date: 06/04/21 CHIEF COMPLAINT: Abdominal pain HISTORY OF PRESENT ILLNESS: Patient is postop day #6 status post exploratory laparotomy, small bowel resection and repair of strangulated right inguinal hernia. Patient reports that her pain is controlled. She denies any nausea or vomiting. She is having bowel movements and flatus. She does not feel ready to advance her diet from full liquids. Afebrile. Tachycardic heart rate 104. Cardiology has been consult regarding the tachycardia. sodium 135 potassium 3.6 creatinine 0.50 Patient seen and examined with Dr. song PHYSICAL EXAM: VITAL SIGNS: Reviewed. GENERAL: Well-developed in no acute distress. HEENT: No sclera icterus. Extraocular movements grossly intact. Moist buccal mucosa. Head is atraumatic, normocephalic. ABDOMEN: Soft. Minimal tenderness at incision site. Incision clean dry and intact NEUROLOGIC: Alert and oriented. Cranial nerves II through XII grossly intact. ASSESSMENT: 1. Right incarcerated inguinal hernia causing distal small bowel obstruction status post exploratory laparotomy, small bowel resection and repair of str angulated right inguinal hernia 2. Hypokalemia 3. Acute kidney injury due to dehydration. Improved PLAN: -We'll give 1 L fluid bolus due to patient's tachycardia -Patient receiving potassium supplement -Continue supportive care -Encouraged patient ambulate -Encouraged patient to use incentive spirometer -GI prophylaxis Protonix and DVT prophylaxis Lovenox Physician Power Switchboard Operator note has been reviewed by physician. Signing provider agrees with the documented findings, assessment, and plan of care. Objective - Vital Signs Vital signs: Vital Signs Temp 98.2 F 06/04/21 11:29 Pulse 104 H 06/04/21 11:29 Resp 18 06/04/21 11:29 BP 145/81 06/04/21 11:29 Pulse Ox 94 L 06/04/21 11:29 Intake & Output 06/03/21 06/04/21 06/04/21 18:59 06:59 18:59 Intake Total 550 Balance 550 Weight 45 kg Intake: Oral 550 Other: Voiding Method Diaper Diaper Diaper Incontinent Incontinent Incontinent # Voids 1 3 2 # Bowel Movements 1 2 - Labs CBC & Chem 7: 06/02/21 06:18 06/04/21 07:29 Labs: Abnormal Lab Results - Last 24 Hours (Table) 06/04/21 Range/Units 07:29 Sodium 135 L (137-145) mmol/L Carbon Dioxide 34 H (22-30) mmol/L Creatinine 0.50 L (0.52-1.04) mg/dL Glucose 103 H (74-99) mg/dL Total Protein 4.9 L (6.3-8.2) g/dL Albumin 2.5 L (3.5-5.0) g/dL
[2021-06-04] MEDS: LORazepam 2 MG/ML INJ IV PRN (15:22)
--- NOTE | 2021-06-04 16:26 | CONS ---
CONSULTATION HISTORY OF PRESENT ILLNESS: This is a 76-year-old lady with a known history of hypertension under the care of her primary care physician, Dr. Fitch who came into the hospital mainly for what seems to be an abdominal discomfort and went on to have surgery by Dr. Blevins that was performed on May 29. She had mostly abdominal discomfort, strangulated right inguinal hernia, underwent a laparotomy, small bowel resection, repair of the right inguinal hernia. Following the procedure, while she was here in the hospital, she is having tachycardia and we were asked to see her from a cardiac standpoint. EKG performed earlier on the left vent revealed a sinus rhythm with nonspecific ST and T- wave changes and LVH by voltage criteria. Her rhythm strip review also suggests sinus tachycardia at 105 beats per minute. Patient is postoperative day after her laparotomy and she could also be dehydrated as well. She has some discomfort. Rhythm is really sinus tachycardia. No other abnormal rhythms are noted. She is resting comfortably without symptoms and her diet is being advanced. PAST MEDICAL HISTORY: 1. Benign hypertension. 2. History of abdominal pain with strangulated hernia and underwent repair of hernia with bowel resection by Dr. Blevins. 3. No evidence of any documented prior myocardial infarction. 4. Patient had an episode of hyponatremia, which seems to have resolved. PHYSICAL EXAMINATION: On examination, blood pressure is 140/70, pulse rate is about 105 per minute, regular. HEENT unremarkable. Fundus was not examined by me. NECK is supple. No JVD. I do not hear a carotid bruit. HEART exam reveals S1, S2 heard normally with some tachycardia. No significant murmurs. LUNGS revealed decent air entry. ABDOMEN exam was deferred. Lower EXTREMITIES reveal palpable pulses. No edema. CENTRAL NERVOUS SYSTEM is normal. IMPRESSION: 1. Sinus tachycardia, probably related to postoperative state with pain and mild dehydration. 2. History of hypertension under good control. RECOMMENDATIONS: I am recommending that we hydrate the patient with normal saline 100 mL/hour, obtain echocardiogram at bedside and also start her on a beta oksana, metoprolol tartrate 25 mg t.i.d. and based on clinical course, we will make further recommendations. Patient is already on Lovenox for DVT prophylaxis. Thank you very much for the consult. MMODL / IJN: [id number] /
--- NOTE | 2021-06-04 19:30 | P.PN ---
Subjective Progress Note Date: 06/04/21 (Tachycardia) Progress note, date of service 06/04/[address] Gramajo. Patient seen and evaluated [id number]. I was called today deputy coroner hour from the nursing staff through the perfect serve with the tachycardia in 120. Patient was not taken medication because of the surgery and wasn't allowed to take medicine and she was nothing by mouth. She started to have a bowel movement and the time for return over her medication. I did ask her to consult the cardiology, Dr. DIANA Hayes did see the patient evaluated there who is her merchandise worker as outpatient as well and he was started her on the beta oksana. She is happy with that that she saw her merchandise worker Dr. ORTIZ. Patient was comfortable at the time of the exam she stated that she had passing flatus and have a bowel movement and is started on full liquid full liquid diet. She need to have more movement and rehabilitation however patient very reluctant. On exam patient is, conscious alert oriented 3 no respiratory distress still the heart rate was tachycardic. The head was normocephalic and atraumatic pupil was equal reactive she had a facial asymmetry with previous surgery and brain tumor was removed. Her neck was supple no JVD no thyromegaly no lymphadenopathy trachea midline. Chest was clear on auscultation and pe rcussion normal breath sounds Heart sinus rhythm with tachycardia probably due to delay of medication that she used to take at home however she was post surgery and she wasn't allowed to eat because of resection of the bowel small bowel the ischemic changes after the incarceration of the right inguinal hernia and the have to cut the on the bowel was sized and reanastomosis. Her abdomen is still worker helper from surgery but positive bowel sounds and extremities no edema and positive pulses. Laboratory her protein is 4. sign total protein, albumin is 2.5 with the [id number] protein deficiency globulins 2.4 normal parahormone cystine level normal, sodium 135 potassium 3.6 chloride 100 carbon dioxide 34 her BUN 9 and creatinine 0.9 which is significant improvement from the time of admission her blood sugar 1 with 3. Her EEG FR more than 90. The Assessment: Patient is progression improvement except for the tachycardia with the need of resuming her beta blockers and Dr. DIANA Hayes did that as well meanwhile patient is reluctant for ambulation and rehabilitation she still did not have no solid food. Dr. DIANA Hayes started her on the 0.9 normal saline for hydration. Plan continue the current supportive treatment until the decision surgeon for discharge home. Objective - Vital Signs Vital signs: Vital Signs Temp 98.2 F 06/04/21 11:29 Pulse 104 H 06/04/21 11:29 Resp 18 06/04/21 11:29 BP 145/81 06/04/21 11:29 Pulse Ox 94 L 06/04/21 11:29 Intake & Output 06/04/21 06/04/21 06/05/21 06:59 18:59 06:59 Intake Total 550 2200 Balance 550 2200 Weight 45 kg Intake: Intake, IV Titration 2200 Amount Sodium Chloride 0.9% 1, 1200 000 ml @ 100 mls/hr IV . Q10H [facility] Rx#:[id number] Sodium Chloride 0.9% 1, 1000 000 ml @ 999 mls/hr IV . Q1H1M [facility] Rx#:[id number] Oral 550 Other: Voiding Method Diaper Diaper Incontinent Incontinent # Voids 3 3 # Bowel Movements 2 - Labs CBC & Chem 7: 06/02/21 06:18 06/04/21 07:29 Labs: Abnormal Lab Results - Last 24 Hours (Table) 06/04/21 Range/Units 07:29 Sodium 135 L (137-145) mmol/L Carbon Dioxide 34 H (22-30) mmol/L Creatinine 0.50 L (0.52-1.04) mg/dL Glucose 103 H (74-99) mg/dL Total Protein 4.9 L (6.3-8.2) g/dL Albumin 2.5 L (3.5-5.0) g/dL
[2021-06-04] MEDS: HYDROcodone/APAP 5-325MG 1 EACH TAB PO PRN (21:09)
[2021-06-05] MEDS: SODIUM CHLORIDE 0.9% 1,000 ML IV SCH ×3 (03:10→16:01)
[2021-06-05] MEDS: HYDROcodone/APAP 5-325MG 1 EACH TAB PO PRN ×3 (05:31→20:38)
[2021-06-05] MEDS: HYDROmorphone 1 MG/ML 1 ML SYRINGE IVP PRN ×2 (05:31→13:52)
[2021-06-05] MEDS: ONDANSETRON 4 MG/2 ML VIAL IVP PRN ×2 (05:38→18:11)
[2021-06-05] MEDS: METOPROLOL TARTRATE 25 MG TAB PO SCH (08:04)
[2021-06-05] MEDS: ENOXAPARIN 30 MG/0.3 ML SYRINGE SQ SCH (08:04)
[2021-06-05] MEDS: PANTOPRAZOLE 40 MG/10 ML VIAL IV SCH (08:04)
[2021-06-05] MEDS ORDERED: METOPROLOL TARTRATE 25 MG TAB PO STA (08:42)
[2021-06-05 09:08] LABS: African American GFR (CKD) 116.4 (60.0-200.0); Anion Gap 9.8 mmol/L (10.00-18.00); Blood Urea Nitrogen 6.4 mg/dL (9.0-27.0); Carbon Dioxide 27.2 mmol/L (20.0-27.5); Non-African American GFR(CKD) 100.5 (60.0-200.0); Potassium 3.6 mmol/L (3.5-5.5)
--- NOTE | 2021-06-05 10:13 | P.PN ---
Subjective Progress Note Date: 06/05/21 HISTORY OF PRESENT ILLNESS: This is a 76-year-old female who does not follow with a adjunct latin professor on a regular basis. She is status post laparotomy, small bowel resection, and repair of right inguinal hernia on 05/29/2021. Patient was started on metoprolol 25 mg 3 times a day yesterday for tachycardia. This morning the patient remains tachycardic with a heart rate around 105. Blood pressure 153/83. Patient denies any complaints of chest pain or shortness of breath. Echocardiogram is currently pending. PHYSICAL EXAM: VITAL SIGNS: Reviewed. GENERAL: Well-developed in no acute distress. NECK: Supple. No JVD or thyromegaly LUNGS: Respirations even and unlabored. Lungs essentially clear to auscultation bilaterally. HEART: Regular rate and rhythm. S1 and S2 heard. EXTREMITIES: Normal range of motion. No clubbing or cyanosis. Peripheral pulses intact. No lower extremity edema ASSESSMENT: Sinus tachycardia History of hypertension Right inguinal hernia, status post laparotomy, small bowel resection, and repair of internal hernia Hypernatremia, resolved PLAN: 2-D echo ordered. Await results. Continue telemetry monitoring Change metoprolol to 50 mg twice a day. Given additional dose of 25 mg now Further recommendations pending patient's course Nurse practitioner note has been reviewed by physician. Signing provider agrees with the documented findings, assessment, and plan of care. Objective - Vital Signs Vital signs: Vital Signs Temp 98.2 F 06/05/21 05:00 Pulse 95 06/05/21 05:00 Resp 18 06/05/21 05:00 BP 153/83 06/05/21 05:00 Pulse Ox 91 L 06/05/21 05:00 Intake & Output 06/04/21 06/05/21 06/05/21 18:59 06:59 18:59 Intake Total 2200 Balance 2200 Weight 45 kg Intake: Intake, IV Titration 2200 Amount Sodium Chloride 0.9% 1, 1200 000 ml @ 100 mls/hr IV . Q10H [facility] Rx#:[id number] Sodium Chloride 0.9% 1, 1000 000 ml @ 999 mls/hr IV . Q1H1M ONE Rx#:[id number] Other: Voiding Method Diaper Diaper Incontinent Incontinent # Voids 3 1 # Bowel Movements 1 - Labs CBC & Chem 7: 06/02/21 06:18 06/05/21 06:14 Labs: Abnormal Lab Results - Last 24 Hours (Table) 06/05/21 Range/Units 06:14 Anion Gap 9.80 L (10.00-18.00) mmol/L BUN 6.4 L (9.0-27.0) mg/dL Creatinine 0.4 L (0.6-1.5) mg/dL Calcium 8.0 L (8.7-10.3) mg/dL
[2021-06-05 12:06] LABS: HCT 39.3 % (34.0-46.0); HGB 12.7 gm/dL (11.4-16.0); Hypochromasia Slight; MCH 32.3 pg (25.0-35.0); MCHC 32.4 g/dL (31.0-37.0); MCV 99.8 fL (80.0-100.0); Mean Platelet Volume 9.8; Platelet Count 247 k/uL (150-450); RBC 3.94 m/uL (3.80-5.40); RDW 13.1 % (11.5-15.5); WBC 11.8 k/uL (3.8-10.6)
--- NOTE | 2021-06-05 12:40 | ECHOF ---
Referral Reason:LV function MEASUREMENTS -------- HEIGHT: 172.7 cm WEIGHT: 44.9 kg BP: 153/83 RVIDd: 2.8 cm (< 3.3) IVSd: 1.1 cm (0.6 - 1.1) LVIDd: 3.4 cm (3.9 - 5.3) LVPWd: 1.1 cm (0.6 - 1.1) IVSs: 1.6 cm LVIDs: 2.2 cm LVPWs: 1.6 cm LA Diam: 2.6 cm (2.7 - 3.8) LAESV Index (A-L): 32.11 ml/m Ao Diam: 3.3 cm (2.0 - 3.7) AV Cusp: 1.8 cm (1.5 - 2.6) MV EXCURSION: 15.792 mm (> 18.000) MV EF SLOPE: 26 mm/s (70 - 150) EPSS: 0.6 cm MV E Lewis: 0.98 m/s MV DecT: 208 ms MV A Lewis: 1.58 m/s MV E/A Ratio: 0.62 AV maxP.82 mmHg AV meanP.23 mmHg RAP: 5.00 mmHg RVSP: 34.51 mmHg FINDINGS -------- Sinus rhythm. This was a technically good study. The left ventricular size is normal. There is borderline concentric left ventricular hypertrophy. Overall left ventricular systolic function is normal with, an EF between 55 - 60 %. The right ventricle is normal in size. LA is midly dilated 29-33ml/m2. The right atrium is normal in size. There is mild aortic valve sclerosis. Trace to mild aortic regurgitation. There is mild aortic st enosis present. Peak/mean gradient across the Aortic Valve is 16.82mmHg / 9.23mmHg. The mitral valve leaflets are mildly thickened. Mild mitral annular calcification present. Mild m itral regurgitation is present. Mild tricuspid regurgitation present. There is mild pulmonary hypertension. The right ventricular systolic pressure, as measured by Doppler, is 34.51mmHg. The pulmonic valve is normal. The aortic root size is normal. IVC Not well visulized. There is no pericardial effusion. CONCLUSIONS -------- 1. The left ventricular size is normal. 2. There is borderline concentric left ventricular hypertrophy. 3. Overall left ventricular systolic function is normal with, an EF between 55 - 60 %. 4. LA is midly dilated 29-33ml/m2. 5. There is mild aortic valve sclerosis. 6. Trace to mild aortic regurgitation. 7. There is mild aortic stenosis present. 8. Peak/mean gradient across the Aortic Valve is 16.82mmHg / 9.23mmHg. 9. The mitral valve leaflets are mildly thickened. 10. Mild mitral annular calcification present. 11. Mild mitral regurgitation is present. 12. Mild tricuspid regurgitation present. 13. There is mild pulmonary hypertension. 14. The right ventricular systolic pressure, as measured by Doppler, is 34.51mmHg. 15. There is no pericardial effusion. BULK SEALER OPERATOR: Ciara Diaz RDCS
[2021-06-05] MEDS: busPIRone HCl 5 MG TAB PO SCH (20:32)
[2021-06-05] MEDS: METOPROLOL TARTRATE 50 MG TAB PO SCH (20:32)
--- NOTE | 2021-06-05 20:32 | P.PN ---
Subjective Progress Note Date: 06/05/21 Progress note date of service 06/05/2021. Dictation by Dr. Gramajo. Patient [id number]. Seen today. I received a call from nursing staff on the [facility] early this morning regarding the patient progressive anxiety and apprehension. I did request psychiatric evaluation with the patient history of a major depressive disorder in the past, also started hair on both 5 mg every 12 hour. Tell seen by the psychiatrist. Also nursing staff was concerned and the Yoshi test was done and negative. Her temperature 98.1 F oral. She had history of tachycardia, seen by Dr. DIANA Hayes solder deposit operator and he re started her on the beta oksana twice a day. Today her initial of the day was pulse rate 89/m however fluctuated to 117 with minimal exertion. Patient currently on beta oksana and cardiology is following. Her respiratory rate 16/m nonlabored and blood pressure 137/79, she has pulse ox 90 on room air with the underlying kyphoscoliosis. WBC 11.8, hemoglobin 12.7 hematocrit 39.3, Chemistry: Sodium 141, potassium 3.6, chloride 104, carbon dioxide 27.2. BUN 6.4 and creatinine 0.4, estimated GFR 100/m which is normal renal function. This patient seen evaluated [id number] She had depressive behavior and she is expressed that she wants to progress on her own pace which she decided that for herself and she is afraid to eat she still on full liquid diet and despite that she had open bowel with several bowel movement still have tenderness on the abdominal incision and nausea and vomiting intermittently but not recently On exam: The head was normocephalic and atraumatic, pupil was equal reactive, she had history of brain tumor was removed from the left side, she had history of patient acetaminophen 3 and dentures. The neck was supple no lymphadenopathy trachea midline. Chest is symmetrical with the underlying kyphoscoliosis. No wheezes no rhonchi's but her pulse ox 90%. Heart at the time of the exam was normal sinus however later on reported increased to 1 17/m Abdomen: Healing well with the start the bowel movement and she had normal urination and she uses a commode. Extremities no edema and positive pulses. Assessment and plan Patient on the surgical service with the underlying history of exploratory laparotomy with right inguinal hernia incarcerated small bowel associated with small bowel ischemia which is resected and the patient #2 underlying major depressive disorder and anxiety will consult psychiatry for evaluation and treatment #3 sinus tachycardia started on the beta blockers followed by cardiology #4 underlying oxygen saturation saturation is diminished to the 90%. Plan continue monitoring the patient and if the shortness of breath is progressed review the chest x-ray if wasn't done or ordering 1 tomorrow as well as start supplementation with oxygen units continue to be low saturation of oxygen. She had improvement on the WBC to 11.8 and the renal function is normal at this time. Objective - Vital Signs Vital signs: Vital Signs Temp 98.4 F 06/05/21 19:31 Pulse 117 H 06/05/21 19:31 Resp 18 06/05/21 19:31 BP 125/77 06/05/21 19:31 Pulse Ox 92 L 06/05/21 19:31 Intake & Output 06/05/21 06/05/21 06/06/21 06:59 18:59 06:59 Intake Total 1200 Balance 1200 Intake: Intake, IV Titration 1200 Amount Sodium Chloride 0.9% 1, 1200 000 ml @ 100 mls/hr IV . Q10H [facility] Rx#:[id number] Other: Voiding Method Diaper Diaper Incontinent Incontinent # Voids 1 # Bowel Movements 1 - Labs CBC & Chem 7: 06/05/21 06:14 06/05/21 06:14 Labs: Abnormal Lab Results - Last 24 Hours (Table) 06/05/21 06/05/21 Range/Units 06:14 06:14 WBC 11.8 H (3.8-10.6) k/uL Anion Gap 9.80 L (10.00-18.00) mmol/L BUN 6.4 L (9.0-27.0) mg/dL Creatinine 0.4 L (0.6-1.5) mg/dL Calcium 8.0 L (8.7-10.3) mg/dL
[2021-06-06] MEDS: ONDANSETRON 4 MG/2 ML VIAL IVP PRN ×2 (01:27→16:50)
[2021-06-06] MEDS: HYDROmorphone 1 MG/ML 1 ML SYRINGE IVP PRN ×3 (01:30→20:02)
[2021-06-06] MEDS: SODIUM CHLORIDE 0.9% 1,000 ML IV SCH ×3 (01:32→16:52)
[2021-06-06] MEDS: HYDROcodone/APAP 5-325MG 1 EACH TAB PO PRN (06:27)
--- NOTE | 2021-06-06 08:10 | P.PN ---
Subjective Progress Note Date: 06/05/21 CHIEF COMPLAINT: Abdominal pain HISTORY OF PRESENT ILLNESS: Patient is postop day #7 status post exploratory laparotomy, small bowel resection and repair of strangulated right inguinal hernia. Patient is sitting up at bedside chair. She reports that her pain is better controlled today. She denies any nausea or vomiting. She is having bowel movements. She is urinating without difficulty. Patient has had sinus tachycardia cardiology has added metoprolol and given IV fluids. Afebrile. Echo pending. CBC pending Patient seen and examined with Dr. song PHYSICAL EXAM: VITAL SIGNS: Reviewed. GENERAL: Well-developed in no acute distress. HEENT: No sclera icterus. Extraocular movements grossly intact. Moist buccal mucosa. Head is atraumatic, normocephalic. ABDOMEN: Soft. Minimal tenderness at incision site. Incision site with serosanguineous drainage and distal aspect noted on dressing NEUROLOGIC: Alert and oriented. Cranial nerves II through XII grossly intact. ASSESSMENT: 1. Right incarcerated inguinal hernia causing distal small bowel obstruction status post exploratory laparotomy, small bowel resection and repair of strangulated right inguinal hernia 2. Hypokalemia improved 3. Acute kidney injury due to dehydration. Improved 4. Tachycardia likely due to dehydration and pain PLAN: -Continue IV fluids -Continue supportive care -Encouraged patient ambulate -Encouraged patient to use incentive spirometer -Patient can shower -GI prophylaxis Protonix and DVT prophylaxis Lovenox Physician Plugger note has been reviewed by physician. Signing provider agrees with the documented findings, assessment, and plan of care. Objective - Vital Signs Vital signs: Vital Signs Temp 98.2 F 06/05/21 05:00 Pulse 95 06/05/21 05:00 Resp 18 06/05/21 05:00 BP 153/83 06/05/21 05:00 Pulse Ox 91 L 06/05/21 05:00 Intake & Output 06/04/21 06/05/21 06/05/21 18:59 06:59 18:59 Intake Total 2200 Balance 2200 Weight 45 kg Intake: Intake, IV Titration 2200 Amount Sodium Chloride 0.9% 1, 1200 000 ml @ 100 mls/hr IV . Q10H [facility] Rx#:[id number] Sodium Chloride 0.9% 1, 1000 000 ml @ 999 mls/hr IV . Q1H1M [facility] Rx#:[id number] Other: Voiding Method Diaper Diaper Diaper Incontinent Incontinent Incontinent # Voids 3 1 # Bowel Movements 1 - Labs CBC & Chem 7: 06/02/21 06:18 06/05/21 06:14 Labs: Abnormal Lab Results - Last 24 Hours (Table) 06/05/21 Range/Units 06:14 Anion Gap 9.80 L (10.00-18.00) mmol/L BUN 6.4 L (9.0-27.0) mg/dL Creatinine 0.4 L (0.6-1.5) mg/dL Calcium 8.0 L (8.7-10.3) mg/dL
[2021-06-06] MEDS: busPIRone HCl 5 MG TAB PO SCH ×2 (08:48→21:30)
[2021-06-06] MEDS: PANTOPRAZOLE 40 MG/10 ML VIAL IV SCH (08:48)
[2021-06-06] MEDS: METOPROLOL TARTRATE 50 MG TAB PO SCH ×3 (08:48→21:30)
[2021-06-06] MEDS: ENOXAPARIN 30 MG/0.3 ML SYRINGE SQ SCH (08:49)
--- NOTE | 2021-06-06 09:17 | XR ---
EXAMINATION TYPE: XR chest 1V portable DATE OF EXAM: 06/06/2021 COMPARISON: 02/06/2021 HISTORY: Hypoxia TECHNIQUE: Single frontal view of the chest is obtained. FINDINGS: There is diffuse bilateral infiltrate and small effusion. COPD noted. Is a lucency along the right lung base which could be related to either small pneumothora x or small amount of free intraperitoneal air. Diffuse osteopenia. There is a large hiatal hernia. IMPRESSION: 1. Interval development of diffuse bilateral infiltrate and pleural effusion. Correlate for diffuse p neumonia or pulmonary edema. 2. Lucency along the right hemidiaphragm could reflect either a small amount of free intraperitoneal air or a small pneumothorax. Recommend CT for further evaluation. Report called to the patient's nurs e 8:40 AM 06/06/2021
[2021-06-06 09:29] LABS: African American GFR (CKD) >90 (>60 ml/min/1.73 sqM); Anion Gap 6 mmol/L; Blood Urea Nitrogen 11 mg/dL (7-17); Calcium 8.2 mg/dL (8.4-10.2); Carbon Dioxide 24 mmol/L (22-30); Chloride 104 mmol/L (98-107); Glucose 103 mg/dL (74-99); Non-African American GFR(CKD) >90 (>60 ml/min/1.73 sqM); Potassium 3.4 mmol/L (3.5-5.1); Sodium 134 mmol/L (137-145)
[2021-06-06] MEDS ORDERED: SODIUM CHLORIDE 0.9% 1,000 ML IV ONE ×2 (09:53→10:36)
--- NOTE | 2021-06-06 09:56 | P.PN ---
Subjective Progress Note Date: 06/06/21 HISTORY OF PRESENT ILLNESS: This is a 76-year-old female who does not follow with a impact hammer operator on a regular basis. She is status post laparotomy, small bowel resection, and repair of right inguinal hernia on 05/29/2021. Patient was started on metoprolol 25 mg 3 times a day yesterday for tachycardia. This morning the patient remains tachycardic with a heart rate around 105. Blood pressure 153/83. Patient denies any complaints of chest pain or shortness of breath. Echocardiogram is currently pending. 06/06/2021 Patient examined this morning at the bedside. Patient denies chest pain or pressure. She denies shortness of breath. Telemetry reveals sinus tachycardia with heart rate around 110. Patient reports feeling weak and having a decreased appetite. Echocardiogram completed reveals ejection fraction 55-60%, trace to mild aortic regurgitation, mild aortic stenosis, mild mitral regurgitation, and mild tricuspid regurgitation PHYSICAL EXAM: VITAL SIGNS: Reviewed. GENERAL: Well-developed in no acute distress. NECK: Supple. No JVD or thyromegaly LUNGS: Respirations even and unlabored. Lungs essentially clear to auscultation bilaterally. HEART: Tachycardiac. Regular rate and rhythm. S1 and S2 heard. EXTREMITIES: Normal range of motion. No clubbing or cyanosis. Peripheral pulses intact. No lower extremity edema ASSESSMENT: Sinus tachycardia History of hypertension Right inguinal hernia, status post laparotomy, small bowel resection, and repair of internal hernia Hypernatremia, resolved PLAN: Continue telemetry monitoring Continue current dose of metoprolol Check TSH Further recommendations pending patient's course Nurse practitioner note has been reviewed by physician. Signing provider agrees with the documented findings, assessment, and plan of care. Objective - Vital Signs Vital signs: Vital Signs Temp 98.1 F 06/06/21 08:00 Pulse 116 H 06/06/21 08:00 Resp 16 06/06/21 08:00 BP 122/75 06/06/21 08:00 Pulse Ox 93 L 06/06/21 08:00 Intake & Output 06/05/21 06/06/21 06/06/21 18:59 06:59 18:59 Intake Total 1200 Output Total 800 Balance 1200 -800 Intake: Intake, IV Titration 1200 Amount Sodium Chloride 0.9% 1, 1200 000 ml @ 100 mls/hr IV . Q10H [facility] Rx#:[id number] Output: Urine 800 Other: Voiding Method Diaper Diaper Diaper Incontinent Incontinent Incontinent # Voids 1 2 # Bowel Movements 1 2 - Labs CBC & Chem 7: 06/05/21 06:14 06/06/21 08:23 Labs: Abnormal Lab Results - Last 24 Hours (Table) 06/05/21 06/06/21 Range/Units 06:14 08:23 WBC 11.8 H (3.8-10.6) k/uL Sodium 134 L (137-145) mmol/L Potassium 3.4 L (3.5-5.1) mmol/L Glucose 103 H (74-99) mg/dL Calcium 8.2 L (8.4-10.2) mg/dL
--- NOTE | 2021-06-06 10:06 | P.PN ---
Progress Note - Text Progress Note Date: 06/06/21 The patient had some increased abdominal pain and distention today. Her abdomen was examined. There is some obvious bilious drainage through the incision. I discussed the patient that she will need to undergo exploratory laparotomy to evaluate the source of bilious fluid. I discussed through that my concern is that she may have an anastomotic dehiscence. The patient will be scheduled for emergent laparotomy this morning.
[2021-06-06 10:12] LABS: Basophils % (A) 0 %; Eosinophils % (A) 0 %; HCT 44.5 % (34.0-46.0); Hypochromasia Slight; Lymphocytes % (A) 4 %; MCH 31.4 pg (25.0-35.0); MCHC 31.5 g/dL (31.0-37.0); MCV 99.5 fL (80.0-100.0); Mean Platelet Volume 9.8; Monocytes # (A) 0.6 k/uL (0-1.0); Monocytes % (A) 3 %; Neutrophils # (A) 20.5 k/uL (1.3-7.7); Neutrophils % (A) 92 %; Platelet Count 365 k/uL (150-450); RBC 4.47 m/uL (3.80-5.40); RDW 13.5 % (11.5-15.5); WBC 22.2 k/uL (3.8-10.6)
[2021-06-06] MEDS: POTASSIUM CHLORIDE 10 MEQ in WATER FOR INJECTION 1 100ML.BAG IVPB SCH ×2 (10:44→17:08)
[2021-06-06] MEDS ORDERED: IV FLUID CONTINUATION 1,000 ML IV ONE (11:42)
[2021-06-06 12:21] LABS: Glucose,Whole Blood 129 mg/dL (75-99)
[2021-06-06] MEDS ORDERED: PHENYLEPHRINE-0.9% NACL SYG 1,000 MCG/10 ML SYRINGE ONE (12:37)
[2021-06-06] MEDS ORDERED: PROPOFOL 10 MG/ML 20 ML VIAL IV ONE (12:37)
[2021-06-06] MEDS ORDERED: SUCCINYLCHOLINE CHLORIDE 100 MG/5 ML SYR IV ONE (12:37)
[2021-06-06] MEDS ORDERED: NEOSTIGMINE 1 MG/ML 10 ML VIAL ONE (12:37)
[2021-06-06] MEDS ORDERED: GLYCOPYRROLATE 0.2 MG/ML 2 ML VIAL ONE (12:37)
[2021-06-06] MEDS ORDERED: fentaNYL (PF) 50 MCG/ML 2 ML AMP ONE (12:37)
[2021-06-06] MEDS ORDERED: MIDAZOLAM 2 MG/2 ML VIAL ONE (12:37)
[2021-06-06] MEDS ORDERED: ROCURONIUM 10 MG/ML (5 ML VIAL) IV ONE (12:37)
[2021-06-06] MEDS ORDERED: LACTATED RINGERS 1,000 ML IV ONE ×4 (13:00→14:07)
[2021-06-06] MEDS ORDERED: SODIUM CHLORIDE 0.9% 50 ML with ceFAZolin 2,000 MG IV ONE ×4 (13:00)
--- NOTE | 2021-06-06 13:38 | P.CN ---
Psychiatric Consult - . Consult date: 06/06/21 Consult:: 06/06/21 13:06 Patient is a 76-year-old female. Patient came in to the ED on 05/29 for nausea and vomiting and abdominal pain. Patient was admitted to the surgery service and went in for laparotomy for small bowel resection and repair of her right inguinal hernia on 05/29. Patient was continued to be followed by surgery and cardiology. Patient continues to have problems with her wound and was taken down today for an emergent laparotomy. Psychiatry was consulted for major depression. Generator Repairer attempted to see patient today however patient was not present in the room. We'll attempt to evaluate patient tomorrow. Can continue with current medications for now.
[2021-06-06] MEDS ORDERED: NALOXONE 0.4 MG/ML 1 ML VIAL IV PRN (14:07)
--- NOTE | 2021-06-06 15:37 | P.OP ---
Date of Procedure: 06/06/21 Preoperative Diagnosis: Perforated viscus Postoperative Diagnosis: Anastomotic dehiscence Small bowel obstruction Procedure(s) Performed: Exploratory laparotomy Lysis of adhesion Small bowel resection with primary anastomosis Anesthesia: LUIS Surgeon: Kian Blevins Estimated Blood Loss (ml): 25 Pathology: other (Jejunum) Condition: stable Disposition: PACU Description of Procedure: The patient's placed on the operating table in supine position. He received general anesthesia. Her abdomen was prepped and draped usual sterile fashion. The esmer removed. There was some bilious fluid in the incision. The fascia was opened. There is no bilious fluid in the pleural cavity. However it was found that the previous anastomosis was adherent to the fascial closure. And had leaked into the incision this way. The bowel was run. There is evidence of an adhesion in the left lower quadrant which appeared to create a partial small bowel obstruction this was lysed. At this point the jejunum was transected proximally and distally. With the PABLITO stapler. The Enseal device the mesentery the bowel was divided. And then the specimens of pathology. The bowel was reanastomosed using the PABLITO and TA staplers. 3-0 GI silk suture was used across stitch. The abdomen was irrigated there is no bleeding seen. The fascia was closed with looped #1 PDS suture. The wound VAC was applied. Patient top she will was sent to recovery room in stable condition.
--- NOTE | 2021-06-06 18:05 | P.PN ---
Subjective Progress Note Date: 06/06/21 Progress note date of service 06/06/2021. Patient seen and evaluated [id number]. Patient currently underwent exploratory laparotomy secondary to secretion, out of her wound from the biliary tract with the underlying possible infection Dr. Penaloza the patient today to the operative room for repair. Her white count went up to 22,000 with the probability of contamination of the protein a.m. and anterior abdominal wall and the prognosis for infection will consult Dr. Madi green for for further evaluation and treatment patient currently is not on any antibiotic however we would anticipate temperature and fever and we'll be ordering if the temperature 101 or above blood culture. The surgeon already ordered the chemistry profile in a.m. and a CBC with differential in a.m. New Patient seen evaluated [id number] her currently postoperative vital signs stable with the ulcers 80/m regular her respiratory rate 18 and her blood pressure 134/64, pulse ox 97% and she is on nasal cannula 3 L. Patient was in OMR and the psychiatry did Ramo and see her and she was done stair in the operative room. On the examination she has currently NG tube, she has also Borjas catheter, her head was normocephalic and atraumatic no change neurologically Neck was supple no JVD no thyromegaly no lymphadenopathy trachea midline. The chest is symmetrical, yesterday the called me and we request chest x-ray however wasn't done. Heart was regular sinus rhythm controlled ventricular response. The abdomen is tender and today had exploratory laparotomy afte bile, out of her incision and looks like fecal with possible contamination and infection Extremities no edema and positive pulses and she has as well thrombotic stocking. She has pain and covered with dialogue that further surgical team Assessment: Incision and wound with excretion by kelly and underwent exploratory laparotomy and repair. The underlying infection is a possibility and we will consult Dr. Madi green patient was not in any antibiotic currently. Blood pressure is currently controlled and she is nothing by mouth with NG tube suction and the Borjas catheter and have IV fluid. Recommendation and plan: #[address] Madi green for evaluation and treatment with considering the picture and possibility of infection to sit up. #2 she was hypoxemic yesterday and currently with the nasal cannula 3 L her oxygen saturation 97%. #3 she currently not short of breath will hold on the chest x-ray which was not done on total having any sequelae of infection. Objective - Vital Signs Vital signs: Vital Signs Temp 97.0 F L 06/06/21 14:17 Pulse 80 06/06/21 15:30 Resp 18 06/06/21 15:30 BP 135/64 06/06/21 15:30 Pulse Ox 97 06/06/21 15:30 Intake & Output 06/05/21 06/06/21 06/06/21 18:59 06:59 18:59 Intake Total 1200 4300 Output Total 800 495 Balance 1200 -800 3805 Weight 45 kg Intake: IV 2300 Intake, IV Titration 1200 2000 Amount Lactated Ringers 1,000 ml 1000 @ 0 mls/hr IV .[facility] Rx#:[id number] Sodium Chloride 0.9% 1, 1200 000 ml @ 100 mls/hr IV . Q10H [facility] Rx#:[id number] Sodium Chloride 0.9% 1, 1000 000 ml @ 999 mls/hr IV . Q1H1M [facility] Rx#:[id number] Output: Urine 800 475 Estimated Blood Loss 20 Other: Voiding Method Diaper Diaper Diaper Incontinent Incontinent Incontinent # Voids 1 2 # Bowel Movements 1 2 - Labs CBC & Chem 7: 06/06/21 08:23 06/06/21 08:23 Labs: Abnormal Lab Results - Last 24 Hours (Table) 06/06/21 06/06/21 06/06/21 Range/Units 08:23 08:23 12:10 WBC 22.2 H (3.8-10.6) k/uL Neutrophils # 20.5 H (1.3-7.7) k/uL Sodium 134 L (137-145) mmol/L Potassium 3.4 L (3.5-5.1) mmol/L Glucose 103 H (74-99) mg/dL POC Glucose (mg/dL) 129 H (75-99) mg/dL Calcium 8.2 L (8.4-10.2) mg/dL
[2021-06-06] MEDS: CEFEPIME 1 GM in SODIUM CHLORIDE 0.9% 50 ML IVPB SCH (21:30)
[2021-06-07] MEDS: SODIUM CHLORIDE 0.9% 1,000 ML IV SCH ×2 (00:18→09:32)
[2021-06-07] MEDS: ONDANSETRON 4 MG/2 ML VIAL IVP PRN ×3 (01:16→21:05)
[2021-06-07] MEDS: HYDROmorphone 1 MG/ML 1 ML SYRINGE IVP PRN ×3 (05:18→21:05)
[2021-06-07 06:51] LABS: Basophils % (A) 0 %; Eosinophils % (A) 0 %; HCT 40.4 % (34.0-46.0); Hypochromasia Slight; Lymphocytes # (A) 0.6 k/uL (1.0-4.8); Lymphocytes % (A) 3 %; MCH 32.1 pg (25.0-35.0); MCHC 32.3 g/dL (31.0-37.0); MCV 99.5 fL (80.0-100.0); Mean Platelet Volume 8.9; Monocytes # (A) 0.7 k/uL (0-1.0); Monocytes % (A) 3 %; Neutrophils # (A) 20.6 k/uL (1.3-7.7); Neutrophils % (A) 93 %; Platelet Count 283 k/uL (150-450); RBC 4.06 m/uL (3.80-5.40); RDW 13.1 % (11.5-15.5); WBC 22.1 k/uL (3.8-10.6)
[2021-06-07] MEDS: PANTOPRAZOLE 40 MG/10 ML VIAL IV SCH (08:05)
[2021-06-07] MEDS: busPIRone HCl 5 MG TAB PO SCH ×2 (08:05→20:56)
[2021-06-07] MEDS: METOPROLOL TARTRATE 50 MG TAB PO SCH ×4 (08:05→21:01)
[2021-06-07] MEDS: CEFEPIME 1 GM in SODIUM CHLORIDE 0.9% 50 ML IVPB SCH (08:06)
[2021-06-07] MEDS: ENOXAPARIN 40 MG/0.4 ML SYRINGE SQ SCH (08:06)
[2021-06-07 10:33] LABS: Magnesium 1.2 mg/dL (1.5-2.4)
[2021-06-07 10:57] LABS: African American GFR (CKD) 96.9 (60.0-200.0); Albumin 2.1 g/dL (3.8-4.9); Albumin/Globulin Ratio 1.31 (1.60-3.17); Anion Gap 13.9 mmol/L (10.00-18.00); Blood Urea Nitrogen 14.7 mg/dL (9.0-27.0); Calcium 7.8 mg/dL (8.7-10.3); Carbon Dioxide 20.1 mmol/L (20.0-27.5); Globulin 1.6 g/dL (1.6-3.3); Non-African American GFR(CKD) 83.6 (60.0-200.0); Potassium 4.2 mmol/L (3.5-5.5); Total Bilirubin 0.4 mg/dL (0.30-1.20); Total Protein 3.7 g/dL (6.2-8.2)
--- NOTE | 2021-06-07 12:05 | P.PN ---
Subjective Progress Note Date: 06/07/21 HISTORY OF PRESENT ILLNESS: This is a 76-year-old female who does not follow with a car parker on a regular basis. She is status post laparotomy, small bowel resection, and repair of right inguinal hernia on 05/29/2021. Patient was started on metoprolol 25 mg 3 times a day yesterday for tachycardia. This morning the patient remains tachycardic with a heart rate around 105. Blood pressure 153/83. Patient denies any complaints of chest pain or shortness of breath. Echocardiogram is currently pending. 06/06/2021 Patient examined this morning at the bedside. Patient denies chest pain or pressure. She denies shortness of breath. Telemetry reveals sinus tachycardia with heart rate around 110. Patient reports feeling weak and having a decreased appetite. Echocardiogram completed reveals ejection fraction 55-60%, trace to mild aortic regurgitation, mild aortic stenosis, mild mitral regurgitation, and mild tricuspid regurgitation 06/07/2021 Patient was taken back to the OR yesterday secondary to an anastomotic dehiscence. Patient underwent exploratory laparotomy, lysis of adhesions, and small bowel resection with primary anastomosis. Patient is currently nothing by mouth with an NG tube. Telemetry reviewed revealing sinus tachycardia with a heart rate around 110. Pressure 124/54. TSH 2.400. WBC 22.1. Magnesium 1.2. PHYSICAL EXAM: VITAL SIGNS: Reviewed. GENERAL: Well-developed in no acute distress. NECK: Supple. No JVD or thyromegaly LUNGS: Respirations even and unlabored. Lungs essentially clear to auscultation bilaterally. HEART: Tachycardiac. Regular rate and rhythm. S1 and S2 heard. EXTREMITIES: Normal range of motion. No clubbing or cyanosis. Peripheral pulses intact. No lower extremity edema ASSESSMENT: Sinus tachycardia History of hypertension Right inguinal hernia, status post laparotomy, small bowel resection, and repair of internal hernia Anastomotic dehiscence, s/p exploratory laparotomy, lysis of adhesions, and small bowel resection with primary anastomosis Leukocytosis Hypernatremia, resolved Hypomagnesemia PLAN: Continue telemetry monitoring Replace magnesium Patient currently NPO. Resume oral metoprolol when able. Tachycardia likely related to anastomotic dehiscence and will resolve as patients condition improves Further recommendations pending patient's course Nurse practitioner note has been reviewed by physician. Signing provider agrees with the documented findings, assessment, and plan of care. Objective - Vital Signs Vital signs: Vital Signs Temp 97.9 F 06/07/21 05:30 Pulse 112 H 06/07/21 08:08 Resp 20 06/07/21 05:30 BP 124/54 06/07/21 08:08 Pulse Ox 94 L 06/07/21 08:08 Intake & Output 06/06/21 06/07/21 06/07/21 18:59 06:59 18:59 Intake Total 4300 1050 Output Total 495 200 Balance 3805 1050 -200 Weight 45 kg Intake: IV 2300 Intake, IV Titration 2000 1050 Amount Lactated Ringers 1,000 ml 1000 @ 0 mls/hr IV .STK-MED ONE Rx#:[id number] Sodium Chloride 0.9% 1, 1000 000 ml @ 100 mls/hr IV . Q10H KAMERON Rx#:[id number] Sodium Chloride 0.9% 1, 1000 000 ml @ 999 mls/hr IV . Q1H1M ONE Rx#:[id number] Sodium Chloride 0.9% 50 50 ml @ 0 mls/hr IV .STK-MED ONE with ceFAZolin 2,000 mg Rx#:[id number] Output: Urine 475 200 Uretheral (Borjas) 200 Estimated Blood Loss 20 Other: Voiding Method Diaper Indwelling Catheter Bedside Commode Incontinent Diaper - Labs CBC & Chem 7: 06/07/21 06:18 06/07/21 06:18 Labs: Abnormal Lab Results - Last 24 Hours (Table) 06/06/21 06/07/21 06/07/21 Range/Units 12:10 06:18 06:18 WBC 22.1 H (3.8-10.6) k/uL Neutrophils # 20.6 H (1.3-7.7) k/uL Lymphocytes # 0.6 L (1.0-4.8) k/uL BUN/Creatinine Ratio 21.00 H (12.00-20.00) Ratio POC Glucose (mg/dL) 129 H (75-99) mg/dL Calcium 7.8 L (8.7-10.3) mg/dL Magnesium 1.2 L (1.5-2.4) mg/dL Total Protein 3.7 L (6.2-8.2) g/dL Albumin 2.1 L (3.8-4.9) g/dL Albumin/Globulin Ratio 1.31 L (1.60-3.17) g/dL
[2021-06-07] MEDS: MAGNESIUM SULFATE-D5W PMX 1 GM in DEXTROSE/WATER 1 100ML.BAG IVPB SCH ×3 (12:54→16:48)
[2021-06-07] MEDS: LACTATED RINGERS 1,000 ML IV SCH ×2 (12:54→19:12)
--- NOTE | 2021-06-07 13:31 | P.CN ---
Psychiatric Consult - . Consult date: 06/07/21 Consult:: 06/07/21 13:25 IDENTIFYING DATA: This patient is a 76-year-old female who currently is and lives in the house has 2 daughters and 4 grandchildren. REASON FOR REFERRAL: Psychiatry was consulted for depression HISTORY OF PRESENT ILLNESS: The patient came in to the ED on 05/29 for nausea and vomiting and abdominal pain. Patient was admitted to the surgery service and went in for laparotomy for small bowel resection and repair of her right inguinal hernia on 05/29. Patient was continued to be followed by surgery and cardiology. Patient continues to have problems with her wound and was taken down today for an emergent laparotomy. Psychiatry was consulted for major depression. Fisher Swordfish attempted to see patient yesterday however patient was not present in the room. Nurse claims that patient has been fairly cooperative and not endorsing any suicidal thoughts today. Patient was seen at the bedside and agreeable to speak to race and sports book writer. She appeared to be mildly anxious however states that she has a mild history of depression. She claims it is mainly situational and states that she has been going through a lot dealing with her medical condition and going due to surgeries. She spoke about coming in with a "bowel blockage" and had her first surgery on 05/29. She states that she had her second surgery yesterday due to complications. She claims that she has been dealing with the pain and claims that she is having good pain control with the medications. She states that she has a "good life" and endorsed several support systems within her family and states that she has cats that she wants to live for. She also claims that she is uatsdin and relies on God. She claims that her sleep has been "not the best" secondary to being in the hospital. She states that her diet has been slowly advancing. At this time patient denies any suicidal or homical ideations, intent or plan. Patient denies any auditory, visual hallucinations and denies any paranoia or delusions. Patients admits to using no recreational drugs or cigarettes. She is denying any significant depression today. PAST PSYCHIATRIC HISTORY: Patient has a a history of depression and anxiety. Patient is currently on BuSpar 5 mg twice a day however was not taking this prior to being in the hospital. Patient denies any previous psychiatric hospitalizations. Patient denies any psychiatric outpatient follow-up. She states that she used to see a therapist several years ago after her son in a motor vehicle accident. Patient denies any history of suicide attempts in the past. PAST MEDICAL HISTORY: As per medicine H&P. ALLERGIES: as per EMR. CHEMICAL DEPENDENCY HISTORY: as per HPI. FAMILY PSYCHIATRIC/SUBSTANCE USE HISTORY: denies SOCIAL HISTORY: Patient was born and raised in [place] and then in [place]. She states that she moved to [place] in the 1960s and has been here since. She states that she does not have any legal history. She used to work at [employer] and is now retired. She claims that she has 2 daughters and 4 grandchildren. She currently lives alone in a house and is . MENTAL STATUS EXAM: General Appearance: Patient appears to be thin, has NG tube, stated age is alert, pleasant, and attempts to be cooperative. Patient appears to have fair hygiene and grooming wearing hospital gown with fair eye contact. Behavior: Patient is calmly lying in bed without any agitated behavior. Mildly anxious. Speech: Patient's speech is fluent and nonpressured. Rambles at times. Mood/Affect: Patient reports their mood is "I'm okay", affect is congruent Suicidality/Homicidality: Patient denies having any suicidal or homicidal ideation intent or plan. Perceptions: Patient denies any visual hallucinations and denies any auditory hallucinations Though content/process: There is no evidence of any delusional thought content and thought process is linear and goal-directed. Rambles at times. Memory and concentration: AOX3, grossly intact for the purposes of this session. 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 -Delirium precautions recommended with patient including - avoiding use of narcotics and CARPET LAYER HELPER sedatives, limit anticholinergic medications when possible, frequent re-orientation, minimize use of restraints, open window shades during the day and close them at night -Would recommend the following medication changes/additions: Added melatonin 3 mg daily at bedtime when necessary for insomnia. Patient did not want to start on any antidepressants at this time after giving several options. Increased BuSpar to 7.5 mg twice a day for anxiety. -Communicated plan to patient's nurse -Psychiatry will sign off at this time -Please contact with any questions.
--- NOTE | 2021-06-07 14:45 | P.PN ---
Subjective Progress Note Date: 06/07/21 CHIEF COMPLAINT: Abdominal pain HISTORY OF PRESENT ILLNESS: Patient is postop day #1 status post exploratory laparotomy, lysis of adhesions and small bowel resection with primary anastomosis for small bowel obstruction and anastomotic dehiscence. Patient reports her pain is controlled and better than yesterday. She does admit to nausea. She has NG tube in place. She also has a wound VAC in place. Afebrile. Mild tachycardia. WBC is 22.1 Hgb 13 sodium 141 potassium 4.2 creatinine 0.7 magnesium is 1.2 Patient seen and examined with Dr. song PHYSICAL EXAM: VITAL SIGNS: Reviewed. GENERAL: Well-developed in no acute distress. HEENT: No sclera icterus. Extraocular movements grossly intact. Moist buccal mucosa. Head is atraumatic, normocephalic. ABDOMEN: Soft. Abdomen mildly distended. Mild diffuse tenderness at incision site. Wound VAC in place NEUROLOGIC: Alert and oriented. Cranial nerves II through XII grossly intact. ASSESSMENT: 1. Small bowel distraction and anastomotic dehiscence status post exploratory laparotomy, lysis of adhesions and small bowel resection with primary anastomosis 2. Right incarcerated inguinal hernia causing distal small bowel obstruction st atus post exploratory laparotomy, small bowel resection and repair of strangulated right inguinal hernia 3. Hypomagnesemia PLAN: -Continue NG tube for decompression -Keep patient nothing by mouth except for ice chips -Continue IV fluids -Magnesium being replaced -Continue supportive care -Encouraged patient ambulate -Encouraged patient to use incentive spirometer -GI prophylaxis Protonix and DVT prophylaxis Lovenox Physician [place] Tier note has been reviewed by physician. Signing provider agrees with the documented findings, assessment, and plan of care. Objective - Vital Signs Vital signs: Vital Signs Temp 98.1 F 06/07/21 12:55 Pulse 100 06/07/21 12:55 Resp 16 06/07/21 12:55 BP 131/71 06/07/21 12:55 Pulse Ox 94 L 06/07/21 12:55 Intake & Output 06/06/21 06/07/21 06/07/21 18:59 06:59 18:59 Intake Total 4300 1050 Output Total 495 200 Balance 3805 1050 -200 Weight 45 kg 45 kg Intake: IV 2300 Intake, IV Titration 2000 1050 Amount Lactated Ringers 1,000 ml 1000 @ 0 mls/hr IV .STK-MED ONE Rx#:[id number] Sodium Chloride 0.9% 1, 1000 000 ml @ 100 mls/hr IV . Q10H KAMERON Rx#:[id number] Sodium Chloride 0.9% 1, 1000 000 ml @ 999 mls/hr IV . Q1H1M ONE Rx#:[id number] Sodium Chloride 0.9% 50 50 ml @ 0 mls/hr IV .STK-MED ONE with ceFAZolin 2,000 mg Rx#:[id number] Output: Urine 475 200 Uretheral (Borjas) 200 Estimated Blood Loss 20 Other: Voiding Method Diaper Indwelling Catheter Bedside Commode Incontinent Diaper - Labs CBC & Chem 7: 06/07/21 06:18 06/07/21 06:18 Labs: Abnormal Lab Results - Last 24 Hours (Table) 06/07/21 06/07/21 Range/Units 06:18 06:18 WBC 22.1 H (3.8-10.6) k/uL Neutrophils # 20.6 H (1.3-7.7) k/uL Lymphocytes # 0.6 L (1.0-4.8) k/uL BUN/Creatinine Ratio 21.00 H (12.00-20.00) Ratio Calcium 7.8 L (8.7-10.3) mg/dL Magnesium 1.2 L (1.5-2.4) mg/dL Total Protein 3.7 L (6.2-8.2) g/dL Albumin 2.1 L (3.8-4.9) g/dL Albumin/Globulin Ratio 1.31 L (1.60-3.17) g/dL
[2021-06-07] MEDS: MINERAL OIL-WHITE PETROLATUM 120 GM JAR TOPICAL SCH ×2 (15:30→21:01)
[2021-06-07] MEDS: metroNIDAZOLE-NS PMX 500 MG in SALINE 1 100ML.BAG IVPB SCH ×2 (17:53→23:56)
[2021-06-07] MEDS: CEFEPIME 2 GM in SODIUM CHLORIDE 0.9% 100 ML IVPB SCH ×2 (17:59→23:56)
--- NOTE | 2021-06-07 19:16 | PN ---
PROGRESS NOTE DATE OF SERVICE: 06/07/2021 FULL CODE. DATA: Height 5 feet 8 inches. Weight 45 kg, BSA 1.52 m2, BMI 15.1 kg/m2. ALLERGIES AND ADVERSE EFFECTS: AMPICILLIN, PROCHLORPERAZINE. The patient is seen, evaluated today face to face. She is conscious, alert. She has NG tube in place and she is n.p.o. She has also Borjas catheter for I and O. She had tenderness on the recurrent incision of the anterior abdominal wall with the laparotomy after she had a setback with the excretion coming out of her wound. First surgery was for incarcerated inguinal hernia on the right side followed by repair and excision of small bowel because of associated ischemia. She did well until yesterday morning, when she had diarrhea or bowel movement and found that coming out from her wound site. It was described as brownish. Subsequently Dr. Blevins took her to the OR and he did the repair for that wound incision and subsequently she had a Borjas catheter as well as NG and the IV fluid. On the that surgery, which was done on June 06, 2021, I did the patient face to face as well and at that time I was concerned about the possible associated infection and ordered a blood culture. We could not verify if it was done or not. I ordered it and I did talk to the nurse at that time to hold the first infusion of antibiotic until the blood culture was obtained. Subsequently I did consult Dr. Barraza, Infectious Disease, who had already seen the patient and started her on Flagyl as well as increased the dose of cefepime to 2 grams every 8 hours as well as Flagyl 500 mg q.8 hours. Patient's vital signs are currently stable. She is able to respond and she feels fine. She still has the pain in her anterior abdominal wall. Her temperature today was 98.1 F oral. Her pulse rate was ranging between 100 and 90, respiratory rate 16, her blood pressure ranging between 124/54 to 121/73 and stable. Saturation was 100% on 2 L nasal cannula. Laboratory today is indicating white count 22.1 with a hemoglobin of 13 and hematocrit 40.4 and MCV 99.5. Neutrophils 20.6. No bands. Chemistry today showed sodium 141, potassium 4.2, chloride 107, carbon dioxide 20.1, creatinine 0.7, BUN 14.7, GFR for non- 83.6. Glucose 91 and calcium 7.8. Magnesium was 1.2 and supplemented with IV magnesium 2 grams, to be checked tomorrow. Her total protein is low at 3.7 and albumin is low at 2.1 with the underlying protein-calorie deficiency secondary to the underlying surgery and n.p.o. TSH was 2.400. Coronavirus PCR was negative. On examination, patient is conscious, alert and she is comfortable at this time and still has the abdominal pain. Head and neck normal. Chest was clear. No wheezes, no rhonchi. The heart was regular sinus rhythm. She had history of tachycardia and she was placed on the beta blockers. We will see if the heart rate will increase again and what Cardiology will suggest. The patient already has been seen by the cardiology team and they are following the patient. The abdomen is tender with the repeated surgery. Extremities have no edema. She had antithrombotic stockings. Now she is covered with the antibiotic with the possibility of intraabdominal infection. ASSESSMENT: 1. Patient is currently status post revision of her wound and surgery. 2. Possibility of intraabdominal infection considered high. Patient placed on antibiotic with the consultation of Infectious Disease. 3. Underlying history of tachycardia. So far she is stable. 4. History of hypertension so far is stable. With these findings, patient currently continues to follow up. Further treatment depends on the patient's current condition. VONDAL / SANKETN: [id number] /
--- NOTE | 2021-06-07 23:15 | P.CONS ---
History of Present Illness - Reason for Consult Consult date: 06/07/21 peritonitis Requesting physician: Heri Fitch - Chief Complaint abd pain x few days - History of Present Illness History of present illness : Patient is 76-year female presenting to the ER about 9 days ago for evaluation of nausea vomiting and abdominal pain in the so she did not have any bowel movement for 5 days before presentation to the hospital patient did have a CT of abdominal pelvis completed and was noticed to have evidence of distal small bowel obstruction related to bowel containing right inguinal hernia patient was evaluated by general surgery and was taken to the OR this patient is status post laparotomy small bowel resection and repair of the right inguinal hernia patient has been in the hospital recovering from her surgery yesterday patient was noticed to have stool coming out from her incision as per discussion with the patient physician patient is subsequently was taken to the OR and was noticed to have anastomotic dehiscence and small bowel obstruction repeated status post lysis of adhesion and small bowel resection with primary stenosis no OR consent was done patient was started on cefepime pending infectious disease evaluation and infectious was consulted for further management patient did not have any fever during this hospital stay she did have a white count of 22.2 yesterday and is 22.1 today with a left shift creatinine is normal patient currently have the energy and would like the NG tube ER so she can have some ice chips patient denies having any chest pain or shortness of the cough has been complaining of abdominal pain however medicine is better than yesterday more of a dull aching pain mild in intensity today and no radiation Review of system: CONSTITUTIONAL: Positive for weakness denies fever. EYES: No complaint. ENT: No complaint. RESPIRATORY: No complaint. CARDIOVASCULAR: No complaint. GENITOURINARY: No complaint. GASTROINTESTINAL: As per history of present illness MUSCULOSKELETAL: No c omplaint. INTEGUMENTARY: No complaint. PSYCHOLOGIC: No complaint. ENDOCRINE: No complaint. NEUROLOGIC: No complaint. Past medical history : Reviewed, documented below Past surgical history : Reviewed, documented below Social history: Reviewed, documented below Medications: Reviewed, as documented below EXAMINATION: Vital sigans= Reviewed and documented below GENERAL DESCRIPTION: Elderly female lying in bed, no distress. No tachypnea or accessory muscle of respiration use. HEENT: Shows Pallor , no scleral icterus. Oral mucous membrane is dry. NECK: Trachea central, no thyromegaly. LUNGS: Unlabored breathing. Decreased intensity of breath sounds. No wheeze or crackle. HEART: S1, S2, regular rate and rhythm. ABDOMEN: Soft, abdominal incision is covered with a wound VAC minimal distention and tenderness EXTREMITIES: No edema of feet. SKIN: No rash, no masses palpable. NEUROLOGICAL: The patient is awake, alert, oriented x3, mood and affect normal. LABS AND RADIOLOGY: Reviewed results see below Assessment :1- Patient with secondary peritonitis in this patient admitted to the hospital initially with right inguinal obstructed hernia and small bowel obstruction in this patient is status post repair of the hernia on May 29, 2021 and this patient subsequently did have complication of perforated viscus/anastomosis leak for the patient was taken back to the OR s/p repair of the perforation primary closure of the wound, we will need to cover for the enteric gram-negative both aerobes and anaerobes for this episode of secondary peritonitis 2-patient with penicillin allergy that would limit the number of antibiotics safe to use Plan: 1-we will adjust the dose of cefepime to 2 g every 8 hours as appeared to have normal kidney function 2-Flagyl 500 mg every 8 hours 3-gentle IV fluid We will follow on clinical condition and cultures to further adjust medication if needed Thank you for this consultation we will follow the patient along with you Past Medical History Past Medical History: CVA/TIA, Eye Disorder, Hyperlipidemia, Hypertension Additional Past Medical History / Comment(s): tremors History of Any Multi-Drug Resistant Organisms: None Reported Additional Past Surgical History / Comment(s): 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, multiple eye surgeries Past Anesthesia/Blood Transfusion Reactions: No Reported Reaction Past Psychological History: No Psychological Hx Reported Smoking Status: Never smoker Past Alcohol Use History: None Reported Past Drug Use History: None Reported Medications and Allergies Home Medications Medication Instructions Recorded Confirmed Type Cholecalciferol (Vitamin D3) 75 mcg PO DAILY 02/07/21 05/29/21 History [Vitamin D3 (3000 Iu)] Vitamin B Complex 1 cap PO DAILY 02/07/21 05/29/21 History amLODIPine [Norvasc] 10 mg PO DAILY 02/07/21 05/29/21 History Allergies Allergy/AdvReac Type Severity Reaction Status Date / Time ampicillin Allergy Rash/Hives Verified 05/29/21 11:16 prochlorperazine Allergy Anaphylaxis Verified 05/29/21 11:16 [From Compazine] Physical Exam Vitals: Vital Signs Temp Pulse Pulse Resp BP Pulse Ox 06/07/21 12:55 98.1 F 100 16 131/71 94 L 06/07/21 08:08 112 H 124/54 94 L 06/07/21 08:00 112 H 06/07/21 05:30 97.9 F 102 H 20 121/76 95 06/06/21 20:05 97.7 F 88 17 132/75 06/06/21 18:25 73 129/70 06/06/21 18:00 83 132/74 06/06/21 17:30 82 125/70 06/06/21 17:00 82 130/71 06/06/21 16:45 85 137/73 06/06/21 16:30 80 133/71 06/06/21 16:15 83 134/71 06/06/21 15:30 80 18 135/64 97 Intake and Output 06/07/21 06/07/21 06/07/21 06:59 14:59 22:59 Intake Total 1050 Output Total 200 Balance 1050 -200 Intake: Intake, IV Titration 1050 Amount Sodium Chloride 0.9% 1, 1000 000 ml @ 100 mls/hr IV . Q10H KAMERON Rx#:[id number] Sodium Chloride 0.9% 50 50 ml @ 0 mls/hr IV .STK-MED ONE with ceFAZolin 2,000 mg Rx#:[id number] Output: Urine 200 Uretheral (Borjas) 200 Other: Voiding Method Bedside Commode Diaper Weight 45 kg Results CBC & Chem 7: 06/07/21 06:18 06/07/21 06:18 Labs: Abnormal Lab Results - Last 24 Hours (Table) 06/07/21 06/07/21 Range/Units 06:18 06:18 WBC 22.1 H (3.8-10.6) k/uL Neutrophils # 20.6 H (1.3-7.7) k/uL Lymphocytes # 0.6 L (1.0-4.8) k/uL BUN/Creatinine Ratio 21.00 H (12.00-20.00) Ratio Calcium 7.8 L (8.7-10.3) mg/dL Magnesium 1.2 L (1.5-2.4) mg/dL Total Protein 3.7 L (6.2-8.2) g/dL Albumin 2.1 L (3.8-4.9) g/dL Albumin/Globulin Ratio 1.31 L (1.60-3.17) g/dL
[2021-06-08] MEDS: LACTATED RINGERS 1,000 ML IV SCH ×3 (02:37→22:14)
[2021-06-08] MEDS: ONDANSETRON 4 MG/2 ML VIAL IVP PRN ×2 (04:27→22:21)
[2021-06-08] MEDS: HYDROmorphone 1 MG/ML 1 ML SYRINGE IVP PRN ×5 (04:27→22:22)
[2021-06-08] MEDS: CEFEPIME 2 GM in SODIUM CHLORIDE 0.9% 100 ML IVPB SCH ×2 (09:22→22:18)
[2021-06-08] MEDS: metroNIDAZOLE-NS PMX 500 MG in SALINE 1 100ML.BAG IVPB SCH ×2 (09:26→16:02)
[2021-06-08] MEDS: busPIRone HCl 5 MG TAB PO SCH ×2 (09:28→22:18)
[2021-06-08] MEDS: METOPROLOL TARTRATE 50 MG TAB PO SCH ×3 (09:29→22:21)
[2021-06-08] MEDS: ENOXAPARIN 40 MG/0.4 ML SYRINGE SQ SCH (09:29)
[2021-06-08] MEDS: PANTOPRAZOLE 40 MG/10 ML VIAL IV SCH (09:30)
[2021-06-08 10:15] LABS: African American GFR (CKD) 101.9 (60.0-200.0); Anion Gap 14.1 mmol/L (10.00-18.00); BUN/Creat Ratio 30.17 Ratio (12.00-20.00); Blood Urea Nitrogen 18.1 mg/dL (9.0-27.0); Calcium 8.1 mg/dL (8.7-10.3); Carbon Dioxide 18.9 mmol/L (20.0-27.5); Non-African American GFR(CKD) 87.9 (60.0-200.0); Potassium 3.9 mmol/L (3.5-5.5)
[2021-06-08 10:26] LABS: Magnesium 2.1 mg/dL (1.5-2.4)
[2021-06-08] MEDS: MINERAL OIL-WHITE PETROLATUM 120 GM JAR TOPICAL SCH ×3 (11:46→22:21)
--- NOTE | 2021-06-08 13:35 | P.PN ---
Subjective Progress Note Date: 06/08/21 CHIEF COMPLAINT: Abdominal pain HISTORY OF PRESENT ILLNESS: Patient is postop day #2 status post exploratory laparotomy, lysis of adhesions and small bowel resection with primary anastomosis for small bowel obstruction and anastomotic dehiscence. Patient is lying in bed comfortably. Her pain is controlled. She has NG tube in place. She reports passing a small amount of gas. Patient was seen by infectious disease. Afebrile. CBC pending. Sodium 139 potassium 3.9 creatinine 0.6 magnesium 2.1 Patient seen and examined with Dr. song PHYSICAL EXAM: VITAL SIGNS: Reviewed. GENERAL: Well-developed in no acute distress. HEENT: No sclera icterus. Extraocular movements grossly intact. Moist buccal mucosa. Head is atraumatic, normocephalic. ABDOMEN: Soft. Abdomen mildly distended. Wound VAC in place NEUROLOGIC: Alert and oriented. Cranial nerves II through XII grossly intact. ASSESSMENT: 1. Small bowel obstruction and anastomotic dehiscence status post exploratory laparotomy, lysis of adhesions and small bowel resection with primary anastomosis on 06/06/2021 2. Right incarcerated inguinal hernia causing distal small bowel obstruction status post exploratory laparotomy, small bowel resection and repair of strangulated right inguinal hernia on 05/29/2021 3. Hypomagnesemia improved 4. Peritonitis PLAN: -Consult dietitian to start TPN for nutrition support -PICC line ordered for TPN -Continue NG tube for decompression -Keep patient nothing by mouth except for ice chips -Continue antibiotics per ID service -Continue IV fluids -Continue supportive care -Encouraged patient ambulate -Encouraged patient to use incentive spirometer -GI prophylaxis Protonix and DVT prophylaxis Lovenox Physician Caser Up note has been reviewed by physician. Signing provider agrees with the documented findings, assessment, and plan of care. Objective - Vital Signs Vital signs: Vital Signs Temp 97.5 F L 06/08/21 12:24 Pulse 73 06/08/21 12:24 Resp 20 06/08/21 12:24 BP 126/66 06/08/21 12:24 Pulse Ox 94 L 06/08/21 12:24 Intake & Output 06/07/21 06/08/21 06/08/21 18:59 06:59 18:59 Intake Total 400 200 Output Total 200 500 Balance 200 -300 Weight 45 kg Intake: Intake, IV Titration 200 Amount Cefepime 2 gm In Sodium 100 Chloride 0.9% 100 ml @ 25 mls/hr IVPB Q8HR [facility] Rx# :[id number] metroNIDAZOLE-NS PMX 500 100 mg In Saline 1 100ml.bag @ 100 mls/hr IVPB Q8HR [facility] Rx#:[id number] Oral 400 Output: Urine 200 500 Uretheral (Borjas) 200 Other: Voiding Method Bedside Commode Indwelling Catheter Indwelling Catheter Diaper # Bowel Movements 1 - Labs CBC & Chem 7: 06/07/21 06:18 06/08/21 05:57 Labs: Abnormal Lab Results - Last 24 Hours (Table) 06/08/21 Range/Units 05:57 Carbon Dioxide 18.9 L (20.0-27.5) mmol/L BUN/Creatinine Ratio 30.17 H (12.00-20.00) Ratio Calcium 8.1 L (8.7-10.3) mg/dL Microbiology - Last 24 Hours (Table) 06/06/21 18:41 Blood Culture - Preliminary Blood No Growth after 24 hours 06/06/21 18:25 Blood Culture - Preliminary Blood No Growth after 24 hours
--- NOTE | 2021-06-08 13:44 | P.PN ---
Subjective Progress Note Date: 06/08/21 HISTORY OF PRESENT ILLNESS: This is a 76-year-old female who does not follow with a hearing screener on a regular basis. She is status post laparotomy, small bowel resection, and repair of right inguinal hernia on 05/29/2021. Patient was started on metoprolol 25 mg 3 times a day yesterday for tachycardia. This morning the patient remains tachycardic with a heart rate around 105. Blood pressure 153/83. Patient denies any complaints of chest pain or shortness of breath. Echocardiogram is currently pending. 06/06/2021 Patient examined this morning at the bedside. Patient denies chest pain or pressure. She denies shortness of breath. Telemetry reveals sinus tachycardia with heart rate around 110. Patient reports feeling weak and having a decreased appetite. Echocardiogram completed reveals ejection fraction 55-60%, trace to mild aortic regurgitation, mild aortic stenosis, mild mitral regurgitation, and mild tricuspid regurgitation 06/07/2021 Patient was taken back to the OR yesterday secondary to an anastomotic dehiscence. Patient underwent exploratory laparotomy, lysis of adhesions, and small bowel resection with primary anastomosis. Patient is currently nothing by mouth with an NG tube. Telemetry reviewed revealing sinus tachycardia with a heart rate around 110. Pressure 124/54. TSH 2.400. WBC 22.1. Magnesium 1.2. 06/08/2021 Patient examined this morning at the bedside. Patient denies chest pain or pressure. Denies shortness of breath. Patient's heart rate is currently controlled in the 90s. PHYSICAL EXAM: VITAL SIGNS: Reviewed. GENERAL: Well-developed in no acute distress. NECK: Supple. No JVD or thyromegaly LUNGS: Respirations even and unlabored. Lungs essentially clear to auscultation bilaterally. HEART: Tachycardiac. Regular rate and rhythm. S1 and S2 heard. EXTREMITIES: Normal range of motion. No clubbing or cyanosis. Peripheral pulses intact. No lower extremity edema ASSESSMENT: Sinus tachycardia History of hypertension Right inguinal hernia, status post laparotomy, small bowel resection, and repair of internal hernia Anastomotic dehiscence, s/p exploratory laparotomy, lysis of adhesions, and small bowel resection with primary anastomosis Leukocytosis Hypernatremia, resolved Hypomagnesemia PLAN: Continue current cardiac medications Patient is stable from a cardiac standpoint. We will sign off. Please reconsult if needed. Nurse practitioner note has been reviewed by physician. Signing provider agrees with the documented findings, assessment, and plan of care. Objective - Vital Signs Vital signs: Vital Signs Temp 97.5 F L 06/08/21 12:24 Pulse 73 06/08/21 12:24 Resp 20 06/08/21 12:24 BP 126/66 06/08/21 12:24 Pulse Ox 94 L 06/08/21 12:24 Intake & Output 06/07/21 06/08/21 06/08/21 18:59 06:59 18:59 Intake Total 400 200 Output Total 200 500 Balance 200 -300 Weight 45 kg Intake: Intake, IV Titration 200 Amount Cefepime 2 gm In Sodium 100 Chloride 0.9% 100 ml @ 25 mls/hr IVPB Q8HR [facility] Rx# :[id number] metroNIDAZOLE-NS PMX 500 100 mg In Saline 1 100ml.bag @ 100 mls/hr IVPB Q8HR [facility] Rx#:[id number] Oral 400 Output: Urine 200 500 Uretheral (Borjas) 200 Other: Voiding Method Bedside Commode Indwelling Catheter Indwelling Catheter Diaper # Bowel Movements 1 - Labs CBC & Chem 7: 06/07/21 06:18 06/08/21 05:57 Labs: Abnormal Lab Results - Last 24 Hours (Table) 06/08/21 Range/Units 05:57 Carbon Dioxide 18.9 L (20.0-27.5) mmol/L BUN/Creatinine Ratio 30.17 H (12.00-20.00) Ratio Calcium 8.1 L (8.7-10.3) mg/dL Microbiology - Last 24 Hours (Table) 06/06/21 18:41 Blood Culture - Preliminary Blood No Growth after 24 hours 06/06/21 18:25 Blood Culture - Preliminary Blood No Growth after 24 hours
[2021-06-08] MEDS ORDERED: LIDOCAINE 1% INJ 10MG/ML (20 ML MDV) ONE (14:30)
[2021-06-08] MEDS ORDERED: LIDOCAINE 1% INJ 10MG/ML (20 ML MDV) SQ ONE ×2 (14:54→14:56)
--- NOTE | 2021-06-08 16:03 | IR ---
EXAMINATION TYPE: IR cvc insert >=5 years DATE OF EXAM: 06/08/2021 COMPARISON: NONE CLINICAL HISTORY: Postbowel resection Needs long-term intravenous access for therapy. PROCEDURE: Hand hygiene obtained with soap and water and alcohol-based hand rub. After informed consent, the skin overlying the left basilic vein was localized with ultrasound and no mark to be compressible and patent. An ultrasound image was obtained and submitted on the patient's c correa. The overlying skin was prepped and draped and Lidocaine was used for local anesthesia. A skin carlos was made with a scalpel. Access was gained to the vein under ultrasound guidance with a 21 gau ge needle and a 0.018 inch wire was advanced. Access site was dilated with Peel-Away sheath and cath eter tailored to the appropriate length and advanced such that the distal tip is at the cavoatrial ju nction. Spot image was obtained verifying placement. Catheter was fixed to the skin and a sterile d ressing was placed following hemostasis. Catheter was aspirated and flushed with saline. Patient wa s discharged in stable condition without complication.Maximal barrier technique is utilized. Ultraso und image is documented on the chart. Ultrasound used with sterile technique. Fluoro time and fluoroscopic images submitted to document procedure: 9 intraoperative C-arm images, 0 .2 minutes fluoroscopy time IMPRESSION: STATUS POST ULTRASOUND AND FLUOROSCOPIC GUIDED PICC LINE PLACEMENT, READY FOR USE. THIS PROCEDURE WAS PERFORMED BY THE UNDERSIGNED.
[2021-06-08 16:20] LABS: Ionized Calcium 5.1 mg/dL (4.5-5.3)
[2021-06-08 16:24] LABS: Albumin 1.9 g/dL (3.5-5.0); Phosphorus 3.2 mg/dL (2.5-4.5)
[2021-06-08 16:49] LABS: Glucose,Whole Blood 71 mg/dL (75-99)
--- NOTE | 2021-06-08 16:57 | P.PN ---
Subjective Progress Note Date: 06/08/21 Principal diagnosis: Abdominal infection/peritonitis Patient is a 76-year-old female admitted to the hospital on 05/29/2021 with nausea no vomiting abdominal pain patient was diagnosed with small bowel obstruction is status post initial laparotomy small bowel resection and repair of right inguinal hernia patient subsequently did have an anastomosis leak and dehiscence of the wound status post repeat laparotomy on 06/06/2021 resection and repair along with anastomosis of the small bowel. on today's evaluation that is 06/07/2021, the patient denies having any fever or any chills, the patient abdominal pain is currently controlled patient still have the NG and is requesting for some ice chips no vomiting and no chest pain shortness of breath or cough Objective - Vital Signs Vital signs: Vital Signs Temp 97.5 F L 06/08/21 07:37 Pulse 96 06/08/21 09:58 Resp 20 06/08/21 09:58 BP 126/67 06/08/21 07:37 Pulse Ox 95 06/08/21 07:37 Intake & Output 06/07/21 06/08/21 06/08/21 18:59 06:59 18:59 Intake Total 400 200 Output Total 200 500 Balance 200 -300 Weight 45 kg Intake: Intake, IV Titration 200 Amount Cefepime 2 gm In Sodium 100 Chloride 0.9% 100 ml @ 25 mls/hr IVPB Q8HR [facility] Rx# :[id number] metroNIDAZOLE-NS PMX 500 100 mg In Saline 1 100ml.bag @ 100 mls/hr IVPB Q8HR [facility] Rx#:[id number] Oral 400 Output: Urine 200 500 Uretheral (Borjas) 200 Other: Voiding Method Bedside Commode Indwelling Catheter Indwelling Catheter Diaper # Bowel Movements 1 - Exam GENERAL DESCRIPTION:[ Patient is awake and alert in no distress] HEENT: [Oral mucosa is dry, NG in the left nostril ] RESPIRATORY SYSTEM: [Unlabored breathing clear to auscultation] CARDIA VASCULAR SYSTEM: [S1-S2 regular rate and rhythm no murmur] GI: [Abdominal soft, incision is covered with a wound VAC no distention] EXTREMITIES: [No edema feet] - Labs CBC & Chem 7: 06/07/21 06:18 06/08/21 05:57 Labs: Abnormal Lab Results - Last 24 Hours (Table) 06/08/21 Range/Units 05:57 Carbon Dioxide 18.9 L (20.0-27.5) mmol/L BUN/Creatinine Ratio 30.17 H (12.00-20.00) Ratio Calcium 8.1 L (8.7-10.3) mg/dL Microbiology - Last 24 Hours (Table) 06/06/21 18:41 Blood Culture - Preliminary Blood No Growth after 24 hours 06/06/21 18:25 Blood Culture - Preliminary Blood No Growth after 24 hours Assessment and Plan (1) Peritonitis Current Visit: Yes Status: Acute Code(s): K65.9 - PERITONITIS, UNSPECIFIED SNOMED Code(s): 96618238 Plan: 1-patient with peritonitis from anastomosis leak in this patient who is status post repair of the leak, patient did have penicillin ALLERGY and is currently covered with the cefepime and Flagyl to continue while monitoring her clinical course closely Time with Patient: Less than 30
--- NOTE | 2021-06-08 16:58 | P.PN ---
Subjective Progress Note Date: 06/08/21 Principal diagnosis: Abdominal infection/peritonitis Patient is a 76-year-old female admitted to the hospital on 05/29/2021 with nausea no vomiting abdominal pain patient was diagnosed with small bowel obstruction is status post initial laparotomy small bowel resection and repair of right inguinal hernia patient subsequently did have an anastomosis leak and dehiscence of the wound status post repeat laparotomy on 06/06/2021 resection and repair along with anastomosis of the small bowel. on today's evaluation that is 06/08/2021, the patient remains to be afebrile, the patient abdominal pain is currently controlled patient still have the NG, however has been tolerating her ice chips no vomiting and no chest pain shortness of breath or cough Objective - Vital Signs Vital signs: Vital Signs Temp 97.5 F L 06/08/21 12:24 Pulse 73 06/08/21 12:24 Resp 20 06/08/21 12:24 BP 126/66 06/08/21 12:24 Pulse Ox 94 L 06/08/21 12:24 Intake & Output 06/07/21 06/08/21 06/08/21 18:59 06:59 18:59 Intake Total 400 200 Output Total 200 500 300 Balance 200 -300 -300 Weight 45 kg 45 kg Intake: Intake, IV Titration 200 Amount Cefepime 2 gm In Sodium 100 Chloride 0.9% 100 ml @ 25 mls/hr IVPB Q8HR [facility] Rx# :[id number] metroNIDAZOLE-NS PMX 500 100 mg In Saline 1 100ml.bag @ 100 mls/hr IVPB Q8HR [facility] Rx#:[id number] Oral 400 Output: Urine 200 500 300 Uretheral (Borjas) 200 Other: Voiding Method Bedside Commode Indwelling Catheter Indwelling Catheter Diaper # Bowel Movements 1 - Exam GENERAL DESCRIPTION:[ Patient is awake and alert in no distress] HEENT: [Oral mucosa is dry, NG in the left nostril ] RESPIRATORY SYSTEM: [Unlabored breathing clear to auscultation] CARDIA VASCULAR SYSTEM: [S1-S2 regular rate and rhythm no murmur] GI: [Abdominal soft, incision is covered with a wound VAC no distention] EXTREMITIES: [No edema feet] - Labs CBC & Chem 7: 06/07/21 06:18 06/08/21 05:57 Labs: Abnormal Lab Results - Last 24 Hours (Table) 06/08/21 06/08/21 06/08/21 Range/Units 05:57 15:42 16:46 Carbon Dioxide 18.9 L (20.0-27.5) mmol/L BUN/Creatinine Ratio 30.17 H (12.00-20.00) Ratio POC Glucose (mg/dL) 71 L (75-99) mg/dL Calcium 8.1 L (8.7-10.3) mg/dL Albumin 1.9 L (3.5-5.0) g/dL Microbiology - Last 24 Hours (Table) 06/06/21 18:41 Blood Culture - Preliminary Blood No Growth after 24 hours 06/06/21 18:25 Blood Culture - Preliminary Blood No Growth after 24 hours Assessment and Plan (1) Peritonitis Current Visit: Yes Status: Acute Code(s): K65.9 - PERITONITIS, UNSPECIFIED SNOMED Code(s): 42607389 Plan: 1-patient with peritonitis from anastomosis leak in this patient who is status post repair of the leak, patient did have penicillin ALLERGY and is currently covered with the cefepime and Flagyl which will be continued will repeat her CBC tomorrow to be sure the white count is trending down Time with Patient: Less than 30
--- NOTE | 2021-06-08 17:27 | P.PN ---
Subjective Progress Note Date: 06/08/21 (Hypoalbuminemia, severe 14-calorie deficiency) Progress note date of service 06/08/2021. Dictation by Dr. Fitch. Patient seen evaluated [id number]. Forecaster was removed patient not urinating enough with the high IV fluid, Patient started on IV nutrition with the glucose and Intralipid with the PICC line placed because of severe protein calorie deficiency and albumin 1.9. Patient has NG tube in place, she had minimal bowel movement, bowel sounds still silent. Patient had 2 surgeries different timing. Patient volume of fluid lactated ringer 1 25 mL an hour plus she getting TPN started with 30 mL an hour followed by 60 mL an hour and she had also IV antibiotic cefepime every 8 hours IV piggyback as well as metronidazole every 8 hours IV piggyback. And it seems to me the patient has vaginal swelling with the possibility of Seaquist rating fluid in the abdomen. Plan strict intake and output, obtain in the a.m. BMP and magnesium and a CBC with differential. For further adjustment on the IV fluid in depend on intake and output, also will request BladderScan if patient could not urinate or the urine output has been decreased. On the physical exam today her temperature 97.5 FL, blood culture so far negative. Her pulse rate 73. Her per minute and her respiratory rate 20/m and blood pressure 126/66 with a mean blood pressure 86. Her pulse ox 94% room air. Laboratories Chemistry indicating sodium 139, potassium 3.9, chloride 106, carbon dioxide is 18.9 which indicating mild acidosis BUN of 18.1 creatinine is 0.6 and EGFR 87.9 Blood sugar/blood glucose 71 which indicating hypoglycemia however patient will be started on the TPN and does have high concentration of glucose and will improve her number as she is nothing by mouth on NG tube. Her ionized calcium is 5.1 which is normal and her phosphate 3.2 and magnesium 2.1. Albumin is 1.9. With the severe hypoalbuminemia and we will be obtaining pre- albumin to confirm the nutritional. Patient will need also CBG to monitor hypoglycemia or hyper glycemia with the TPN protocol. On the exam: Patient conscious alert oriented [address] HEENT no change Neck was supple Chest was clear to auscultation and percussion and she does not feel any shortness of breath Heart: Compensated regular sinus rhythm with a history of tachycardia cardiology is following the patient Abdomen: Tender with the second surgery and questionable fluid sequestration. Extremities no edema. Positive pulses. Neurologically no lateralizing sign and patient stable Assessment #1 status post abdominal surgery 2 with the history of incarceration of the right inguinal hernia and also history of ischemia of the small bowel underwent resection, subsequently has another reset with common secretion out of her wound taken to the OR and prepared with prolonged time of note feeding with the dropping of her albumin and protein. Also her total protein 3.7 significantly low because of the underlying surgery and starvation #2 carbon dioxide 18.9 with the mild acidosis no symptoms for the patient will repeat laboratory in a.m. with a BMP as well and CBC with differential #3 patient on antibiotic and need also for the IV fluid monitoring with strict intake and output . #4 discussed with No sebastian the RN also BladderScan if needed patient output has been decreased. Objective - Vital Signs Vital signs: Vital Signs Temp 97.5 F L 06/08/21 12:24 Pulse 73 06/08/21 12:24 Resp 20 06/08/21 12:24 BP 126/66 06/08/21 12:24 Pulse Ox 94 L 06/08/21 12:24 Intake & Output 06/07/21 06/08/21 06/08/21 18:59 06:59 18:59 Intake Total 400 200 Output Total 200 500 300 Balance 200 -300 -300 Weight 45 kg 45 kg Intake: Intake, IV Titration 200 Amount Cefepime 2 gm In Sodium 100 Chloride 0.9% 100 ml @ 25 mls/hr IVPB Q8HR [facility] Rx# :[id number] metroNIDAZOLE-NS PMX 500 100 mg In Saline 1 100ml.bag @ 100 mls/hr IVPB Q8HR [facility] Rx#:[id number] Oral 400 Output: Urine 200 500 300 Uretheral (Borjas) 200 Other: Voiding Method Bedside Commode Indwelling Catheter Indwelling Catheter Diaper # Bowel Movements 1 - Labs CBC & Chem 7: 06/07/21 06:18 06/08/21 05:57 Labs: Abnormal Lab Results - Last 24 Hours (Table) 06/08/21 06/08/21 06/08/21 Range/Units 05:57 15:42 16:46 Carbon Dioxide 18.9 L (20.0-27.5) mmol/L BUN/Creatinine Ratio 30.17 H (12.00-20.00) Ratio POC Glucose (mg/dL) 71 L (75-99) mg/dL Calcium 8.1 L (8.7-10.3) mg/dL Albumin 1.9 L (3.5-5.0) g/dL Microbiology - Last 24 Hours (Table) 06/06/21 18:41 Blood Culture - Preliminary Blood No Growth after 24 hours 06/06/21 18:25 Blood Culture - Preliminary Blood No Growth after 24 hours
[2021-06-08] MEDS ORDERED: MVI, ADULT NO.4 WITH VIT K 10 ML, TRACE (CONC-1ML/DOSE) 1 ML in AMINO ACID 5%-D20W+LYTE... IV ONE ×3 (20:00)
[2021-06-08] MEDS ORDERED: FAT EMULSION 20% 500 ML IV SCH (20:00)
[2021-06-08] MEDS: MELATONIN 3 MG TABLET PO PRN (22:22)
[2021-06-08 22:35] LABS: Glucose,Whole Blood 72 mg/dL (75-99)
[2021-06-09] MEDS: metroNIDAZOLE-NS PMX 500 MG in SALINE 1 100ML.BAG IVPB SCH ×4 (00:57→23:47)
[2021-06-09 01:54] LABS: Glucose,Whole Blood 112 mg/dL (75-99)
[2021-06-09] MEDS: LACTATED RINGERS 1,000 ML IV SCH ×3 (02:39→17:48)
[2021-06-09] MEDS: HYDROcodone/APAP 5-325MG 1 EACH TAB PO PRN ×4 (02:48→19:44)
[2021-06-09] MEDS: HYDROmorphone 1 MG/ML 1 ML SYRINGE IVP PRN ×2 (02:48→05:22)
[2021-06-09] MEDS: ONDANSETRON 4 MG/2 ML VIAL IVP PRN (05:21)
[2021-06-09 05:54] LABS: Glucose,Whole Blood 129 mg/dL (75-99)
[2021-06-09 07:23] LABS: Magnesium 1.8 mg/dL (1.6-2.3)
[2021-06-09 07:24] LABS: African American GFR (CKD) >90 (>60 ml/min/1.73 sqM); Anion Gap 6 mmol/L; Blood Urea Nitrogen 18 mg/dL (7-17); Calcium 8.1 mg/dL (8.4-10.2); Carbon Dioxide 21 mmol/L (22-30); Chloride 107 mmol/L (98-107); Glucose 144 mg/dL (74-99); Non-African American GFR(CKD) 88 (>60 ml/min/1.73 sqM); Potassium 3.9 mmol/L (3.5-5.1); Sodium 134 mmol/L (137-145)
[2021-06-09 07:37] LABS: C Reactive Protein 14.7 mg/dL (<1.0)
[2021-06-09 07:55] LABS: Glucose,Whole Blood 144 mg/dL (75-99)
[2021-06-09] MEDS: PANTOPRAZOLE 40 MG/10 ML VIAL IV SCH (08:15)
[2021-06-09] MEDS: METOPROLOL TARTRATE 50 MG TAB PO SCH ×3 (08:16→22:24)
[2021-06-09] MEDS: ENOXAPARIN 40 MG/0.4 ML SYRINGE SQ SCH (08:16)
[2021-06-09] MEDS: busPIRone HCl 5 MG TAB PO SCH ×2 (08:18→22:23)
[2021-06-09 09:06] LABS: Basophils # (A) 0.04 X 10*3/uL (0.00-0.10); Basophils % (A) 0.3 %; Eosinophils # (A) 0.16 X 10*3/uL (0.04-0.35); HCT 35.7 % (37.2-46.3); HGB 11.3 g/dL (12.0-15.0); Immature Grans, Automated 1.5 %; Lymphocytes # (A) 0.71 X 10*3/uL (0.90-5.00); Lymphocytes % (A) 4.6 %; MCH 31.1 pg (27.0-32.0); MCHC 31.7 g/dL (32.0-37.0); MCV 98.3 fL (80.0-97.0); Monocytes # (A) 0.94 X 10*3/uL (0.20-1.00); Monocytes % (A) 6.1 %; NRBC Per 100 WBC 0 /100 WBCS (0.0-0.0); Neutrophils % (A) 86.5 %; Platelet Count 243 X 10*3/uL (140-440); RBC 3.63 X 10*6/uL (4.10-5.20); RDW 13.7 % (11.5-14.5); WBC 15.48 X 10*3/uL (4.50-10.00)
[2021-06-09] MEDS: CEFEPIME 2 GM in SODIUM CHLORIDE 0.9% 100 ML IVPB SCH ×2 (09:52→22:24)
[2021-06-09] MEDS: MINERAL OIL-WHITE PETROLATUM 120 GM JAR TOPICAL SCH ×3 (09:53→22:26)
[2021-06-09 12:20] LABS: Glucose,Whole Blood 154 mg/dL (75-99)
--- NOTE | 2021-06-09 13:07 | P.PN ---
Progress Note - Text Progress Note Date: 06/09/21 Patient feels better. She has less abdominal pain. On exam vital signs are stable. Abdomen soft. Status post small bowel resection. Patient will he received supportive care. Her nasogastric tube will be removed today
--- NOTE | 2021-06-09 14:11 | P.PN ---
Subjective Progress Note Date: 06/09/21 Progress note, dictation by Dr. Fitch, date of service 06/09/2021. Patient seen today [id number] Patient feeling better she has NG tube in place and down she having bowel sound as well as she had passing flatus which she indicating progressive improvement. The white count is 15.48, hemoglobin 11.3, hematocrit 35.7, with the improvement gradually on the white count. Her chemistry indicating sodium 134 and the potassium 3.9 carbon dioxide 21 and the the creatinine is 0.60 with the estimated glomerular filtration rate is 88. Her blood sugar is reasonable 144 with the underlying hyper alimentation with TPN her calcium 8.1, and his C-reactive protein is elevated 14.7 Blood culture 248 hour negative. On the exam: Patient conscious alert oriented 3 she is a happy and they told her today the NG tube will be taken out. Her head was normocephalic and atraumatic oropharynx she had dentures and able to swallow. Neck was supple no JVD no thyromegaly no lymphadenopathy. Chest was symmetrical with the normal breath sounds bilaterally Heart regular sinus rhythm blood pressure 124/65 and her temperature 97.5 and pulse rate 76/m and respiratory rate 18/m. Her pulse ox 93/m on the room air. Her abdomen she had a positive bowel sounds with palpation stenciling machine tender with this surgery expected. Extremities no edema and she is on antithrombotic stocking. Neurologically stable. Assessment: Patient currently progressively improved and the she had bowel sounds as well as she pedis flatus. She is status post 2 abdominal surgery currently is improving Vital signs stable Antibiotic is continued. Intake and output was measured in 06/08/2021 of total intake 1500 and output 300 mL with the balance +12 under and she was incontinent and the indwelling catheter was removed Plan and recommendation No added changes and continue the current treatment will follow with you Objective - Vital Signs Vital signs: Vital Signs Temp 97.5 F L 06/09/21 12:49 Pulse 76 06/09/21 12:49 Resp 18 06/09/21 12:49 BP 124/65 06/09/21 12:49 Pulse Ox 93 L 06/09/21 12:49 Intake & Output 06/08/21 06/09/21 06/09/21 18:59 06:59 18:59 Intake Total 1500 Output Total 300 Balance 1200 Weight 45 kg Intake: Intake, IV Titration 1500 Amount Lactated Ringers 1,000 ml 1500 @ 125 mls/hr IV .Q8H [facility] Rx#:[id number] Output: Urine 300 Other: Voiding Method Indwelling Catheter Incontinent # Voids 1 - Labs CBC & Chem 7: 06/09/21 06:33 06/09/21 06:33 Labs: Abnormal Lab Results - Last 24 Hours (Table) 06/08/21 06/08/21 06/08/21 Range/Units 15:42 16:46 22:33 WBC (4.50-10.00) X 10*3/uL RBC (4.10-5.20) X 10*6/uL Hgb (12.0-15.0) g/dL Hct (37.2-46.3) % MCV (80.0-97.0) fL MCHC (32.0-37.0) g/dL Immature Gran # (0.00-0.04) X 10*3/uL Neutrophils # (1.80-7.70) X 10*3/uL Lymphocytes # (0.90-5.00) X 10*3/uL Sodium (137-145) mmol/L Carbon Dioxide (22-30) mmol/L BUN (7-17) mg/dL Glucose (74-99) mg/dL POC Glucose (mg/dL) 71 L 72 L (75-99) mg/dL Calcium (8.4-10.2) mg/dL C-Reactive Protein (<1.0) mg/dL Albumin 1.9 L (3.5-5.0) g/dL 06/09/21 06/09/21 06/09/21 Range/Units 01:53 05:53 06:33 WBC 15.48 H (4.50-10.00) X 10*3/uL RBC 3.63 L (4.10-5.20) X 10*6/uL Hgb 11.3 L (12.0-15.0) g/dL Hct 35.7 L (37.2-46.3) % MCV 98.3 H (80.0-97.0) fL MCHC 31.7 L (32.0-37.0) g/dL Immature Gran # 0.23 H (0.00-0.04) X 10*3/uL Neutrophils # 13.40 H (1.80-7.70) X 10*3/uL Lymphocytes # 0.71 L (0.90-5.00) X 10*3/uL Sodium (137-145) mmol/L Carbon Dioxide (22-30) mmol/L BUN (7-17) mg/dL Glucose (74-99) mg/dL POC Glucose (mg/dL) 112 H 129 H (75-99) mg/dL Calcium (8.4-10.2) mg/dL C-Reactive Protein (<1.0) mg/dL Albumin (3.5-5.0) g/dL 06/09/21 06/09/21 06/09/21 Range/Units 06:33 07:53 12:19 WBC (4.50-10.00) X 10*3/uL RBC (4.10-5.20) X 10*6/uL Hgb (12.0-15.0) g/dL Hct (37.2-46.3) % MCV (80.0-97.0) fL MCHC (32.0-37.0) g/dL Immature Gran # (0.00-0.04) X 10*3/uL Neutrophils # (1.80-7.70) X 10*3/uL Lymphocytes # (0.90-5.00) X 10*3/uL Sodium 134 L (137-145) mmol/L Carbon Dioxide 21 L (22-30) mmol/L BUN 18 H (7-17) mg/dL Glucose 144 H (74-99) mg/dL POC Glucose (mg/dL) 144 H 154 H (75-99) mg/dL Calcium 8.1 L (8.4-10.2) mg/dL C-Reactive Protein 14.7 H (<1.0) mg/dL Albumin (3.5-5.0) g/dL Microbiology - Last 24 Hours (Table) 06/06/21 18:41 Blood Culture - Preliminary Blood No Growth after 48 hours 06/06/21 18:25 Blood Culture - Preliminary Blood No Growth after 48 hours
[2021-06-09 17:39] LABS: Glucose,Whole Blood 145 mg/dL (75-99)
[2021-06-09 19:58] LABS: Glucose,Whole Blood 138 mg/dL (75-99)
--- NOTE | 2021-06-09 23:04 | P.PN ---
Subjective Progress Note Date: 06/09/21 Principal diagnosis: Abdominal infection/peritonitis Patient is a 76-year-old female admitted to the hospital on 05/29/2021 with nausea no vomiting abdominal pain patient was diagnosed with small bowel obstruction is status post initial laparotomy small bowel resection and repair of right inguinal hernia patient subsequently did have an anastomosis leak and dehiscence of the wound status post repeat laparotomy on 06/06/2021 resection and repair along with anastomosis of the small bowel. on today's evaluation that is 06/09/2021, the patient denies any fever or any chills, the patient abdominal pain is currently controlled patient and she has been discontinued and patient denies any nausea or vomiting, the patient denies chest pain shortness of breath or cough Objective - Vital Signs Vital signs: Vital Signs Temp 97.7 F 06/09/21 20:16 Pulse 55 L 06/09/21 20:16 Resp 18 06/09/21 20:16 BP 135/71 06/09/21 20:16 Pulse Ox 99 06/09/21 20:16 Intake & Output 06/09/21 06/09/21 06/10/21 06:59 18:59 06:59 Other: Voiding Method Incontinent # Voids 1 1 - Exam GENERAL DESCRIPTION:[ Patient is awake and alert in no distress] HEENT: [Oral mucosa is dry, ] RESPIRATORY SYSTEM: [Unlabored breathing clear to auscultation] CARDIA VASCULAR SYSTEM: [S1-S2 regular rate and rhythm no murmur] GI: [Abdominal soft, incision is covered with a wound VAC no distention] EXTREMITIES: [No edema feet] - Labs CBC & Chem 7: 06/09/21 06:33 06/09/21 06:33 Labs: Abnormal Lab Results - Last 24 Hours (Table) 06/09/21 06/09/21 06/09/21 Range/Units 01:53 05:53 06:33 WBC 15.48 H (4.50-10.00) X 10*3/uL RBC 3.63 L (4.10-5.20) X 10*6/uL Hgb 11.3 L (12.0-15.0) g/dL Hct 35.7 L (37.2-46.3) % MCV 98.3 H (80.0-97.0) fL MCHC 31.7 L (32.0-37.0) g/dL Immature Gran # 0.23 H (0.00-0.04) X 10*3/uL Neutrophils # 13.40 H (1.80-7.70) X 10*3/uL Lymphocytes # 0.71 L (0.90-5.00) X 10*3/uL Sodium (137-145) mmol/L Carbon Dioxide (22-30) mmol/L BUN (7-17) mg/dL Glucose (74-99) mg/dL POC Glucose (mg/dL) 112 H 129 H (75-99) mg/dL Calcium (8.4-10.2) mg/dL C-Reactive Protein (<1.0) mg/dL 06/09/21 06/09/21 06/09/21 Range/Units 06:33 07:53 12:19 WBC (4.50-10.00) X 10*3/uL RBC (4.10-5.20) X 10*6/uL Hgb (12.0-15.0) g/dL Hct (37.2-46.3) % MCV (80.0-97.0) fL MCHC (32.0-37.0) g/dL Immature Gran # (0.00-0.04) X 10*3/uL Neutrophils # (1.80-7.70) X 10*3/uL Lymphocytes # (0.90-5.00) X 10*3/uL Sodium 134 L (137-145) mmol/L Carbon Dioxide 21 L (22-30) mmol/L BUN 18 H (7-17) mg/dL Glucose 144 H (74-99) mg/dL POC Glucose (mg/dL) 144 H 154 H (75-99) mg/dL Calcium 8.1 L (8.4-10.2) mg/dL C-Reactive Protein 14.7 H (<1.0) mg/dL 06/09/21 06/09/21 Range/Units 17:37 19:56 WBC (4.50-10.00) X 10*3/uL RBC (4.10-5.20) X 10*6/uL Hgb (12.0-15.0) g/dL Hct (37.2-46.3) % MCV (80.0-97.0) fL MCHC (32.0-37.0) g/dL Immature Gran # (0.00-0.04) X 10*3/uL Neutrophils # (1.80-7.70) X 10*3/uL Lymphocytes # (0.90-5.00) X 10*3/uL Sodium (137-145) mmol/L Carbon Dioxide (22-30) mmol/L BUN (7-17) mg/dL Glucose (74-99) mg/dL POC Glucose (mg/dL) 145 H 138 H (75-99) mg/dL Calcium (8.4-10.2) mg/dL C-Reactive Protein (<1.0) mg/dL Microbiology - Last 24 Hours (Table) 06/06/21 18:41 Blood Culture - Preliminary Blood No Growth after 72 hours 06/06/21 18:25 Blood Culture - Preliminary Blood No Growth after 72 hours Assessment and Plan (1) Peritonitis Current Visit: Yes Status: Acute Code(s): K65.9 - PERITONITIS, UNSPECIFIED SNOMED Code(s): 80078301 Plan: 1-patient with peritonitis from anastomosis leak in this patient who is status post repair of the leak, patient did have penicillin ALLERGY and is currently covered with the cefepime and Flagyl which will be continued, the patient white count is showing downward trend is down to 15,000 Time with Patient: Less than 30
[2021-06-10 00:15] LABS: Glucose,Whole Blood 129 mg/dL (75-99)
[2021-06-10] MEDS: 1: MVI, ADULT NO.4 WITH VIT K 10 ML, TRACE (CONC-1ML/DOSE) 1 ML in AMINO ACID 5%-D20W+LY IV SCH ×9 (03:28→20:30)
[2021-06-10] MEDS: LACTATED RINGERS 1,000 ML IV SCH ×3 (03:30→18:38)
[2021-06-10 06:13] LABS: Glucose,Whole Blood 169 mg/dL (75-99)
[2021-06-10 07:43] LABS: Glucose,Whole Blood 166 mg/dL (75-99)
[2021-06-10] MEDS: CEFEPIME 2 GM in SODIUM CHLORIDE 0.9% 100 ML IVPB SCH ×2 (08:06→20:30)
[2021-06-10] MEDS: METOPROLOL TARTRATE 50 MG TAB PO SCH ×3 (08:06→20:30)
[2021-06-10] MEDS: ENOXAPARIN 40 MG/0.4 ML SYRINGE SQ SCH (08:06)
[2021-06-10] MEDS: metroNIDAZOLE-NS PMX 500 MG in SALINE 1 100ML.BAG IVPB SCH ×2 (08:07→16:39)
[2021-06-10] MEDS: PANTOPRAZOLE 40 MG/10 ML VIAL IV SCH (08:10)
[2021-06-10] MEDS: MINERAL OIL-WHITE PETROLATUM 120 GM JAR TOPICAL SCH ×3 (08:10→20:31)
[2021-06-10] MEDS: busPIRone HCl 5 MG TAB PO SCH ×2 (08:10→20:29)
[2021-06-10 08:34] LABS: African American GFR (CKD) >90 (>60 ml/min/1.73 sqM); Anion Gap 5 mmol/L; Blood Urea Nitrogen 14 mg/dL (7-17); Calcium 7.7 mg/dL (8.4-10.2); Carbon Dioxide 26 mmol/L (22-30); Chloride 106 mmol/L (98-107); Glucose 145 mg/dL (74-99); Magnesium 1.7 mg/dL (1.6-2.3); Non-African American GFR(CKD) >90 (>60 ml/min/1.73 sqM); Phosphorus 2.4 mg/dL (2.5-4.5); Potassium 3.2 mmol/L (3.5-5.1); Sodium 137 mmol/L (137-145)
[2021-06-10] MEDS: POTASSIUM CHLORIDE 20 MEQ in WATER FOR INJECTION 1 100ML.BAG IVPB SCH ×2 (12:16→14:21)
--- NOTE | 2021-06-10 12:37 | P.PN ---
Progress Note - Text Progress Note Date: 06/10/21 Patient feels better. She is hungry. She's had bowel movements. On exam her vital signs are stable. Abdomen soft. Wound VAC is applied. Status post small bowel resection. Patient will start full liquid diet.
[2021-06-10 12:57] LABS: Glucose,Whole Blood 170 mg/dL (75-99)
--- NOTE | 2021-06-10 15:32 | P.PN ---
Subjective Progress Note Date: 06/10/21 There is of the progress note, date of service 06/10/2021. Dictation by Dr. Fitch. Patient seen [id number] discussed with her the plan. NG tube has been removed with the presence of a bowel sounds, folic acid also has been removed. Vital sign temperature 97.5 FL her pulse rate 80/m and regular and respiratory rate 19, blood pressure 159/75. Her pulse ox 92% on the room air. The head was normocephalic and atraumatic pupil was equal reactive and conjunctiva was pink sclera was nonicteric. 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 Chest was clear to auscultation and percussion no wheezes no rhonchi's. The heart was regular sinus rhythm Abdomen she had the abdominal vacuum as well as the incision and however she had not positive bowel sound and still some tenderness present expected with the to surgery. Extremities no edema and positive pulses. Neurologically stable moving 4 extremities no lateralizing sign. Her laboratory today indicating that her sodium 137 potassium 3.2 hypokalemia supplemented. Her renal function for estimated glomerular filtration rate for non- is more than 90. And glucose 145 with the TPN has been infusing. She had a calcium 7.7 and phosphorus is 2.4 and magnesium normal 1.7 and the patient on TPN and we will be correcting through the TPN. Assessment: And plan Patient stable postoperative and will continue the current treatment and the plan. Status post 2 abdominal surgery, the first one was incarcerated right inguinal hernia with the ischemic small bowel underwent surgery and excision and anastomosis. Second surgery was apparently by list secretion, without of the wound and patient taken back to the operative room and repaired. With the suspicious of intra-abdominal infection Consultation with Dr. Barraza and antibiotic was started for. Surgery and monitoring as well. On admission patient had acute kidney injury secondary to dehydration and that was corrected with IV fluid and currently she has normal renal function. Electrolyte imbalance has been corrected through the TPN. Patient followed by infectious disease and the surgeon as well as myself thank you Objective - Vital Signs Vital signs: Vital Signs Temp 97.5 F L 06/10/21 13:00 Pulse 80 06/10/21 13:00 Resp 19 06/10/21 13:00 BP 159/75 06/10/21 13:00 Pulse Ox 92 L 06/10/21 13:00 Intake & Output 06/09/21 06/10/21 06/10/21 18:59 06:59 18:59 Intake Total 1170 Balance 1170 Intake: Intake, IV Titration 1170 Amount Amino Acid 5%-D20w+Lytes* 390 E* 1,000 ml @ 65 mls/hr IV .BY DURATION [facility] Rx#: [id number] Lactated Ringers 1,000 ml 600 @ 125 mls/hr IV .Q8H [facility] Rx#:[id number] Mvi, Adult No.4 with Vit 180 K 10 ml Trace (Conc-1Ml/ Dose) 1 ml In Amino Acid 5%-D20w+Lytes*E* 1,000 ml @ 30 mls/hr IV .Q24H [facility] Rx#:[id number] Other: Voiding Method Incontinent Incontinent Incontinent # Voids 1 4 - Labs CBC & Chem 7: 06/09/21 06:33 06/10/21 07:45 Labs: Abnormal Lab Results - Last 24 Hours (Table) 06/09/21 06/09/21 06/10/21 Range/Units 17:37 19:56 00:14 Potassium (3.5-5.1) mmol/L Creatinine (0.52-1.04) mg/dL Glucose (74-99) mg/dL POC Glucose (mg/dL) 145 H 138 H 129 H (75-99) mg/dL Calcium (8.4-10.2) mg/dL Phosphorus (2.5-4.5) mg/dL 06/10/21 06/10/21 06/10/21 Range/Units 06:12 07:42 07:45 Potassium 3.2 L (3.5-5.1) mmol/L Creatinine 0.50 L (0.52-1.04) mg/dL Glucose 145 H (74-99) mg/dL POC Glucose (mg/dL) 169 H 166 H (75-99) mg/dL Calcium 7.7 L (8.4-10.2) mg/dL Phosphorus 2.4 L (2.5-4.5) mg/dL 06/10/21 Range/Units 12:56 Potassium (3.5-5.1) mmol/L Creatinine (0.52-1.04) mg/dL Glucose (74-99) mg/dL POC Glucose (mg/dL) 170 H (75-99) mg/dL Calcium (8.4-10.2) mg/dL Phosphorus (2.5-4.5) mg/dL Microbiology - Last 24 Hours (Table) 06/06/21 18:41 Blood Culture - Preliminary Blood No Growth after 72 hours 06/06/21 18:25 Blood Culture - Preliminary Blood No Growth after 72 hours
[2021-06-10 17:47] LABS: Glucose,Whole Blood 168 mg/dL (75-99)
--- NOTE | 2021-06-10 20:47 | P.PN ---
Subjective Progress Note Date: 06/10/21 Principal diagnosis: Abdominal infection/peritonitis Patient is a 76-year-old female admitted to the hospital on 05/29/2021 with nausea no vomiting abdominal pain patient was diagnosed with small bowel obstruction is status post initial laparotomy small bowel resection and repair of right inguinal hernia patient subsequently did have an anastomosis leak and dehiscence of the wound status post repeat laparotomy on 06/06/2021 resection and repair along with anastomosis of the small bowel. on today's evaluation that is 06/10/2021, the patient is afebrile, the patient abdominal pain is currently controlled with pain meds , patient denies any nausea or vomiting and wants the diet to be advanced, the patient denies chest pain shortness of breath or cough Objective - Vital Signs Vital signs: Vital Signs Temp 97.5 F L 06/10/21 13:00 Pulse 80 06/10/21 13:00 Resp 19 06/10/21 13:00 BP 159/75 06/10/21 13:00 Pulse Ox 92 L 06/10/21 13:00 Intake & Output 06/10/21 06/10/21 06/11/21 06:59 18:59 06:59 Intake Total 1170 Balance 1170 Intake: Intake, IV Titration 1170 Amount Amino Acid 5%-D20w+Lytes* 390 E* 1,000 ml @ 65 mls/hr IV .BY DURATION [facility] Rx#: [id number] Lactated Ringers 1,000 ml 600 @ 125 mls/hr IV .Q8H [facility] Rx#:[id number] Mvi, Adult No.4 with Vit 180 K 10 ml Trace (Conc-1Ml/ Dose) 1 ml In Amino Acid 5%-D20w+Lytes*E* 1,000 ml @ 30 mls/hr IV .Q24H [facility] Rx#:[id number] Other: Voiding Method Incontinent Incontinent # Voids 4 7 # Bowel Movements 2 - Exam GENERAL DESCRIPTION:[ Patient is awake and alert in no distress] HEENT: [Oral mucosa is dry, ] RESPIRATORY SYSTEM: [Unlabored breathing clear to auscultation] CARDIA VASCULAR SYSTEM: [S1-S2 regular rate and rhythm no murmur] GI: [Abdominal soft, incision is covered with a wound VAC no distention] EXTREMITIES: [No edema feet] - Labs CBC & Chem 7: 06/09/21 06:33 06/10/21 17:05 Labs: Abnormal Lab Results - Last 24 Hours (Table) 06/10/21 06/10/21 06/10/21 Range/Units 00:14 06:12 07:42 Potassium (3.5-5.1) mmol/L Creatinine (0.52-1.04) mg/dL Glucose (74-99) mg/dL POC Glucose (mg/dL) 129 H 169 H 166 H (75-99) mg/dL Calcium (8.4-10.2) mg/dL Phosphorus (2.5-4.5) mg/dL 06/10/21 06/10/21 06/10/21 Range/Units 07:45 12:56 17:46 Potassium 3.2 L (3.5-5.1) mmol/L Creatinine 0.50 L (0.52-1.04) mg/dL Glucose 145 H (74-99) mg/dL POC Glucose (mg/dL) 170 H 168 H (75-99) mg/dL Calcium 7.7 L (8.4-10.2) mg/dL Phosphorus 2.4 L (2.5-4.5) mg/dL Microbiology - Last 24 Hours (Table) 06/06/21 18:41 Blood Culture - Preliminary Blood No Growth after 72 hours 06/06/21 18:25 Blood Culture - Preliminary Blood No Growth after 72 hours Assessment and Plan (1) Peritonitis Current Visit: Yes Status: Acute Code(s): K65.9 - PERITONITIS, UNSPECIFIED SNOMED Code(s): 04110277 Plan: 1-patient with peritonitis from anastomosis leak in this patient who is status post repair of the leak, patient did have penicillin ALLERGY and is currently covered with the cefepime and Flagyl which will be continued, the patient white count is showing downward trend but no cbc was done today but will be ordered for tomorrow Time with Patient: Less than 30
[2021-06-11 00:53] LABS: Glucose,Whole Blood 129 mg/dL (75-99)
[2021-06-11] MEDS: metroNIDAZOLE-NS PMX 500 MG in SALINE 1 100ML.BAG IVPB SCH ×3 (00:53→16:55)
[2021-06-11 05:54] LABS: Glucose,Whole Blood 135 mg/dL (75-99)
[2021-06-11] MEDS: LACTATED RINGERS 1,000 ML IV SCH ×3 (07:32→16:44)
[2021-06-11 07:52] LABS: African American GFR (CKD) >90 (>60 ml/min/1.73 sqM); Anion Gap 2 mmol/L; Blood Urea Nitrogen 15 mg/dL (7-17); Calcium 7.6 mg/dL (8.4-10.2); Carbon Dioxide 28 mmol/L (22-30); Chloride 107 mmol/L (98-107); Glucose 132 mg/dL (74-99); Magnesium 1.7 mg/dL (1.6-2.3); Non-African American GFR(CKD) >90 (>60 ml/min/1.73 sqM); Phosphorus 2.3 mg/dL (2.5-4.5); Potassium 3.4 mmol/L (3.5-5.1); Sodium 137 mmol/L (137-145)
[2021-06-11] MEDS ORDERED: POTASSIUM CHLORIDE ER 20 MEQ TAB.ER PO STA (08:29)
[2021-06-11] MEDS ORDERED: POTASSIUM PHOSPHATE 10 MMOL in SODIUM CHLORIDE 0.9% 250 ML IV ONE (09:00)
[2021-06-11 09:20] LABS: Basophils # (A) 0.02 X 10*3/uL (0.00-0.10); Basophils % (A) 0.2 %; Eosinophils # (A) 0.14 X 10*3/uL (0.04-0.35); Eosinophils % (A) 1.1 %; HCT 34.3 % (37.2-46.3); Immature Grans, Automated 1.2 %; Lymphocytes # (A) 0.95 X 10*3/uL (0.90-5.00); Lymphocytes % (A) 7.3 %; MCH 30.8 pg (27.0-32.0); MCHC 32.1 g/dL (32.0-37.0); MCV 96.1 fL (80.0-97.0); Mean Platelet Volume 11.3 fL (9.5-12.2); Monocytes # (A) 0.76 X 10*3/uL (0.20-1.00); Monocytes % (A) 5.8 %; NRBC Per 100 WBC 0 /100 WBCS (0.0-0.0); Neutrophils # (A) 11.06 X 10*3/uL (1.80-7.70); Neutrophils % (A) 84.4 %; Platelet Count 243 X 10*3/uL (140-440); RBC 3.57 X 10*6/uL (4.10-5.20); RDW 13.6 % (11.5-14.5); WBC 13.09 X 10*3/uL (4.50-10.00)
[2021-06-11] MEDS: CEFEPIME 2 GM in SODIUM CHLORIDE 0.9% 100 ML IVPB SCH ×2 (09:51→19:39)
[2021-06-11] MEDS: PANTOPRAZOLE 40 MG/10 ML VIAL IV SCH (09:51)
[2021-06-11] MEDS: METOPROLOL TARTRATE 50 MG TAB PO SCH ×3 (09:52→19:38)
[2021-06-11] MEDS: busPIRone HCl 5 MG TAB PO SCH ×2 (09:52→19:38)
[2021-06-11] MEDS: ENOXAPARIN 40 MG/0.4 ML SYRINGE SQ SCH (09:53)
[2021-06-11] MEDS: MINERAL OIL-WHITE PETROLATUM 120 GM JAR TOPICAL SCH ×3 (10:15→19:40)
[2021-06-11 11:17] LABS: Glucose,Whole Blood 186 mg/dL (75-99)
--- NOTE | 2021-06-11 11:49 | P.PN ---
Subjective Progress Note Date: 06/11/21 CHIEF COMPLAINT: Abdominal pain HISTORY OF PRESENT ILLNESS: Patient is postop day #3 status post exploratory laparotomy, lysis of adhesions and small bowel resection with primary anastomosis for small bowel obstruction and anastomotic dehiscence. Patient sitting in bedside chair. She reports her pain is controlled. She denies any nausea or vomiting. She is tolerating full liquid diet. She is having flatus and loose bowel movements. Afebrile. WBC is down from 15.48-13.09 hemoglobin 11.0 platelets 243 sodium 137 potassium 3.4 and being replaced creatinine 0.44 magnesium 1.7 PHYSICAL EXAM: VITAL SIGNS: Reviewed. GENERAL: Well-developed in no acute distress. HEENT: No sclera icterus. Extraocular movements grossly intact. Moist buccal mucosa. Head is atraumatic, normocephalic. ABDOMEN: Soft. Nondistended Wound VAC in place NEUROLOGIC: Alert and oriented. Cranial nerves II through XII grossly intact. ASSESSMENT: 1. Small bowel obstruction and anastomotic dehiscence status post exploratory laparotomy, lysis of adhesions and small bowel resection with primary anastomosis on 06/06/2021 2. Right incarcerated inguinal hernia causing distal small bowel obstruction status post exploratory laparotomy, small bowel resection and repair of strangulated right inguinal hernia on 05/29/2021 3. Hypomagnesemia improved 4. Peritonitis 5. Hypokalemia PLAN: -Continue full liquid diet and TPN -Potassium been replaced -Continue antibiotics per ID service -Continue supportive care -Encouraged patient ambulate -Encouraged patient to use incentive spirometer -Patient will require discharge to ECF -GI prophylaxis Protonix and DVT prophylaxis Lovenox [employer] Room Assistant note has been reviewed by physician. Signing provider agrees with the documented findings, assessment, and plan of care. Objective - Vital Signs Vital signs: Vital Signs Temp 97.9 F 06/11/21 11:14 Pulse 86 06/11/21 11:14 Resp 20 06/11/21 11:14 BP 153/77 06/11/21 11:14 Pulse Ox 91 L 06/11/21 11:14 Intake & Output 06/10/21 06/11/21 06/11/21 18:59 06:59 18:59 Intake Total 1000 1480 Balance 1000 1480 Intake: Intake, IV Titration 1000 1480 Amount Amino Acid 5%-D20w+Lytes* 1000 E* 1,000 ml @ 65 mls/hr IV .BY DURATION [facility] Rx#: [id number] Cefepime 2 gm In Sodium 100 Chloride 0.9% 100 ml @ 25 mls/hr IVPB Q12HR [facility] Rx #:[id number] Lactated Ringers 1,000 ml 600 @ 125 mls/hr IV .Q8H [facility] Rx#:[id number] Mvi, Adult No.4 with Vit 780 K 10 ml Trace (Conc-1Ml/ Dose) 1 ml In Amino Acid 5%-D20w+Lytes*E* 1,000 ml @ 65 mls/hr IV .BY DURATION [facility] Rx#: [id number] Other: Voiding Method Incontinent Incontinent # Voids 7 # Bowel Movements 2 - Labs CBC & Chem 7: 06/11/21 07:09 06/11/21 07:09 Labs: Abnormal Lab Results - Last 24 Hours (Table) 06/10/21 06/10/21 06/11/21 Range/Units 12:56 17:46 00:51 WBC (4.50-10.00) X 10*3/uL RBC (4.10-5.20) X 10*6/uL Hgb (12.0-15.0) g/dL Hct (37.2-46.3) % Immature Gran # (0.00-0.04) X 10*3/uL Neutrophils # (1.80-7.70) X 10*3/uL Potassium (3.5-5.1) mmol/L Creatinine (0.52-1.04) mg/dL Glucose (74-99) mg/dL POC Glucose (mg/dL) 170 H 168 H 129 H (75-99) mg/dL Calcium (8.4-10.2) mg/dL Phosphorus (2.5-4.5) mg/dL 06/11/21 06/11/21 06/11/21 Range/Units 05:53 07:09 07:09 WBC 13.09 H (4.50-10.00) X 10*3/uL RBC 3.57 L (4.10-5.20) X 10*6/uL Hgb 11.0 L (12.0-15.0) g/dL Hct 34.3 L (37.2-46.3) % Immature Gran # 0.16 H (0.00-0.04) X 10*3/uL Neutrophils # 11.06 H (1.80-7.70) X 10*3/uL Potassium 3.4 L (3.5-5.1) mmol/L Creatinine 0.44 L (0.52-1.04) mg/dL Glucose 132 H (74-99) mg/dL POC Glucose (mg/dL) 135 H (75-99) mg/dL Calcium 7.6 L (8.4-10.2) mg/dL Phosphorus 2.3 L (2.5-4.5) mg/dL 06/11/21 Range/Units 11:16 WBC (4.50-10.00) X 10*3/uL RBC (4.10-5.20) X 10*6/uL Hgb (12.0-15.0) g/dL Hct (37.2-46.3) % Immature Gran # (0.00-0.04) X 10*3/uL Neutrophils # (1.80-7.70) X 10*3/uL Potassium (3.5-5.1) mmol/L Creatinine (0.52-1.04) mg/dL Glucose (74-99) mg/dL POC Glucose (mg/dL) 186 H (75-99) mg/dL Calcium (8.4-10.2) mg/dL Phosphorus (2.5-4.5) mg/dL Microbiology - Last 24 Hours (Table) 06/06/21 18:41 Blood Culture - Preliminary Blood No Growth after 96 hours 06/06/21 18:25 Blood Culture - Preliminary Blood No Growth after 96 hours
[2021-06-11] MEDS: 1: MVI, ADULT NO.4 WITH VIT K 10 ML, TRACE (CONC-1ML/DOSE) 1 ML in AMINO ACID 5%-D20W+LY IV SCH ×3 (13:14)
[2021-06-11 17:19] LABS: Glucose,Whole Blood 116 mg/dL (75-99)
--- NOTE | 2021-06-11 17:42 | PN ---
PROGRESS NOTE DATE OF SERVICE: 06/11/2021 FULL CODE Height 5 feet 8 inches, weight kg, BSA 1.52 m2, BMI 15.1 kg/m2. ALLERGIES: AMPICILLIN, PROCHLORPERAZINE (COMPAZINE). The patient is seen today [id number] and discussed with her. Her vital signs today indicate temperature 97.9 F oral, heart rate 86 beats per minute, respiratory rate 20 per minute, blood pressure 153/77 with the mean blood pressure 102. Her oxygen saturation is 91% with nasal O2 at 2 L/minute. On the laboratories today, her CBC indicates white count 13.09, hemoglobin 11.0, hematocrit 34.3, normal platelet count 243. Her chemistry indicates sodium 137, potassium 3.4, adjusted and supplemented by the potassium protocol. Her chloride is 107, carbon dioxide 28, BUN of 15 and creatinine 0.44 with the estimated glomerular filtration rate for non- more than 90. Her blood sugar is 132, but the patient is on TPN at this time by Dr. Blevins, surgeon, because of nutritional deficiency. Her calcium is 7.6, phosphate 2.3 and magnesium 1.7, and that will be adjusted in the TPN per the pharmacy. PHYSICAL EXAM: The patient is currently is awake, alert, oriented. She is wearing her glasses. She feels much better and she started on a full liquid diet. She had several bowel movements. The NG tube has been removed as well as Borjas catheter. She is still on the PICC line, the TPN. We will plan to advance the diet in the future as the patient tolerates. HEENT was negative. She had her dentures today and she started to use it and eat. Neck was supple. No JVD. No thyromegaly. No lymphadenopathy. Trachea midline. Tongue moist. Chest was clear to auscultation and percussion. Heart was in regular sinus rhythm. Abdomen was muffler tender, as expected with the two surgeries in the abdomen. She had also the vacuum on the umbilical area for any fluid per the surgeon protocol. Positive bowel sounds. EXTREMITIES: No edema and positive pulses. ASSESSMENT: 1. Status post two abdominal surgeries. 2. Underlying antibiotic for intraabdominal infection, which has been started as well as continued until the patient starts to have a full diet, and then subsequently the antibiotic probably will be discontinued by Infectious Disease, Dr. Barraza. Future plan for [facility] and further monitoring and rehabilitation as outpatient when she is surgically cleared. Dr. Blevins decided that patient needs to go to the care home. MMODL / IJN: [id number] /
[2021-06-11] MEDS: MELATONIN 3 MG TABLET PO PRN (19:40)
--- NOTE | 2021-06-11 23:10 | P.PN ---
Subjective Progress Note Date: 06/11/21 Principal diagnosis: Abdominal infection/peritonitis Patient is a 76-year-old female admitted to the hospital on 05/29/2021 with nausea no vomiting abdominal pain patient was diagnosed with small bowel obstruction is status post initial laparotomy small bowel resection and repair of right inguinal hernia patient subsequently did have an anastomosis leak and dehiscence of the wound status post repeat laparotomy on 06/06/2021 resection and repair along with anastomosis of the small bowel. on today's evaluation that is 06/11/2021, the patient remains to be afebrile, the patient abdominal pain is currently controlled , the patient denies any nausea or vomiting and has been tolerating her diet , the patient denies chest pain shortness of breath or cough Objective - Vital Signs Vital signs: Vital Signs Temp 97.9 F 06/11/21 19:00 Pulse 84 06/11/21 20:00 Resp 18 06/11/21 20:00 BP 165/78 06/11/21 19:00 Pulse Ox 91 L 06/11/21 19:00 Intake & Output 06/11/21 06/11/21 06/12/21 06:59 18:59 06:59 Intake Total 1480 1138 Balance 1480 1138 Weight 45 kg Intake: Intake, IV Titration 1480 1138 Amount Cefepime 2 gm In Sodium 100 100 Chloride 0.9% 100 ml @ 25 mls/hr IVPB Q12HR [facility] Rx #:[id number] Lactated Ringers 1,000 ml 600 @ 125 mls/hr IV .Q8H [facility] Rx#:[id number] Mvi, Adult No.4 with Vit 780 588 K 10 ml Trace (Conc-1Ml/ Dose) 1 ml In Amino Acid 5%-D20w+Lytes*E* 1,000 ml @ 65 mls/hr IV .BY DURATION [facility] Rx#: [id number] Potassium Phosphate 10 250 mmol In Sodium Chloride 0 .9% 250 ml @ 125 mls/hr IV ONCE [facility] Rx#:[id number] metroNIDAZOLE-NS PMX 500 200 mg In Saline 1 100ml.bag @ 100 mls/hr IVPB Q8HR [facility] Rx#:[id number] Other: Voiding Method Incontinent Incontinent Incontinent # Bowel Movements 1 - Exam GENERAL DESCRIPTION:[ Patient is awake and alert in no distress] HEENT: [Oral mucosa is dry, ] RESPIRATORY SYSTEM: [Unlabored breathing clear to auscultation] CARDIA VASCULAR SYSTEM: [S1-S2 regular rate and rhythm no murmur] GI: [Abdominal soft, incision is covered with a wound VAC no distention] EXTREMITIES: [No edema feet] - Labs CBC & Chem 7: 06/11/21 07:09 06/11/21 07:09 Labs: Abnormal Lab Results - Last 24 Hours (Table) 06/11/21 06/11/21 06/11/21 Range/Units 00:51 05:53 07:09 WBC (4.50-10.00) X 10*3/uL RBC (4.10-5.20) X 10*6/uL Hgb (12.0-15.0) g/dL Hct (37.2-46.3) % Immature Gran # (0.00-0.04) X 10*3/uL Neutrophils # (1.80-7.70) X 10*3/uL Potassium 3.4 L (3.5-5.1) mmol/L Creatinine 0.44 L (0.52-1.04) mg/dL Glucose 132 H (74-99) mg/dL POC Glucose (mg/dL) 129 H 135 H (75-99) mg/dL Calcium 7.6 L (8.4-10.2) mg/dL Phosphorus 2.3 L (2.5-4.5) mg/dL 06/11/21 06/11/21 06/11/21 Range/Units 07:09 11:16 17:17 WBC 13.09 H (4.50-10.00) X 10*3/uL RBC 3.57 L (4.10-5.20) X 10*6/uL Hgb 11.0 L (12.0-15.0) g/dL Hct 34.3 L (37.2-46.3) % Immature Gran # 0.16 H (0.00-0.04) X 10*3/uL Neutrophils # 11.06 H (1.80-7.70) X 10*3/uL Potassium (3.5-5.1) mmol/L Creatinine (0.52-1.04) mg/dL Glucose (74-99) mg/dL POC Glucose (mg/dL) 186 H 116 H (75-99) mg/dL Calcium (8.4-10.2) mg/dL Phosphorus (2.5-4.5) mg/dL Microbiology - Last 24 Hours (Table) 06/06/21 18:41 Blood Culture - Preliminary Blood No Growth after 120 hours 06/06/21 18:25 Blood Culture - Preliminary Blood No Growth after 120 hours Assessment and Plan (1) Peritonitis Current Visit: Yes Status: Acute Code(s): K65.9 - PERITONITIS, UNSPECIFIED SNOMED Code(s): 46913754 Plan: 1-patient with peritonitis from anastomosis leak in this patient who is status post repair of the leak, patient did have penicillin ALLERGY and is currently covered with the cefepime and Flagyl which will be continued while inpatient, the patient white count is showing downward trend and is down to 13,000, continue supportive care Time with Patient: Less than 30
[2021-06-11 23:26] LABS: Glucose,Whole Blood 124 mg/dL (75-99)
[2021-06-12] MEDS: metroNIDAZOLE-NS PMX 500 MG in SALINE 1 100ML.BAG IVPB SCH ×2 (00:38→11:24)
[2021-06-12 05:32] LABS: Glucose,Whole Blood 120 mg/dL (75-99)
[2021-06-12] MEDS: LACTATED RINGERS 1,000 ML IV SCH ×2 (05:33→11:26)
[2021-06-12 07:59] VITALS: RESP 16
[2021-06-12 09:29] LABS: Basophils # (A) 0.1 k/uL (0-0.2); Basophils % (A) 1 %; Eosinophils # (A) 0.2 k/uL (0-0.7); Eosinophils % (A) 2 %; HGB 11.6 gm/dL (11.4-16.0); Hypochromasia Slight; Lymphocytes # (A) 0.8 k/uL (1.0-4.8); Lymphocytes % (A) 8 %; MCH 31.9 pg (25.0-35.0); MCHC 32.2 g/dL (31.0-37.0); Mean Platelet Volume 9.7; Monocytes # (A) 0.7 k/uL (0-1.0); Monocytes % (A) 7 %; Neutrophils # (A) 8.8 k/uL (1.3-7.7); Neutrophils % (A) 82 %; Platelet Count 228 k/uL (150-450); RBC 3.64 m/uL (3.80-5.40); RDW 13.4 % (11.5-15.5); WBC 10.7 k/uL (3.8-10.6)
[2021-06-12 09:55] LABS: African American GFR (CKD) 118.3 (60.0-200.0); BUN/Creat Ratio 31.23 Ratio (12.00-20.00); Blood Urea Nitrogen 11.9 mg/dL (9.0-27.0); Calcium 7.6 mg/dL (8.7-10.3); Carbon Dioxide 23.7 mmol/L (20.0-27.5); Magnesium 1.6 mg/dL (1.5-2.4); Non-African American GFR(CKD) 102.1 (60.0-200.0); Phosphorus 2.1 mg/dL (2.4-5.1); Potassium 3.5 mmol/L (3.5-5.5)
[2021-06-12] MEDS: busPIRone HCl 5 MG TAB PO SCH (10:38)
[2021-06-12] MEDS: CEFEPIME 2 GM in SODIUM CHLORIDE 0.9% 100 ML IVPB SCH (10:40)
[2021-06-12] MEDS: ENOXAPARIN 40 MG/0.4 ML SYRINGE SQ SCH (10:43)
[2021-06-12] MEDS: METOPROLOL TARTRATE 50 MG TAB PO SCH (10:43)
[2021-06-12] MEDS: PANTOPRAZOLE 40 MG/10 ML VIAL IV SCH (10:44)
[2021-06-12] MEDS: MINERAL OIL-WHITE PETROLATUM 120 GM JAR TOPICAL SCH (10:44)
[2021-06-12 11:25] LABS: Glucose,Whole Blood 181 mg/dL (75-99)
[2021-06-12] MEDS: 1: MVI, ADULT NO.4 WITH VIT K 10 ML, TRACE (CONC-1ML/DOSE) 1 ML in AMINO ACID 5%-D20W+LY IV SCH ×3 (11:26)
[2021-06-12 12:55] VITALS: BP 122/72; PULSE 74; TEMP 97.3
--- NOTE | 2021-06-12 13:46 | P.DS ---
Providers Date of admission: 05/29/21 11:43 Expected date of discharge: 06/12/21 Attending physician: Kian Blevins Consults: 05/29/21 11:44 Consult Physician Routine Consulting Provider: Heri Fitch Consult Reason/Comments: medical Management small bowel obstruction Do you want consulting provider notified?: Already Contacted 06/05/21 14:59 Consult Physician Routine Consulting Provider: Psychiatry - [facility] Psychiatry Consult Reason/Comments: Major Depressive Disorder Do you want consulting provider notified?: Yes 06/06/21 17:37 Consult Physician Stat Consulting Provider: Philomena Barraza Consult Reason/Comments: Eval for treat. Stool was coming from abd. incision. Do you want consulting provider notified?: Yes Primary care physician: Heri Fitch Hospital Course: Discharge diagnosis 1. Small bowel obstruction and anastomotic dehiscence status post exploratory laparotomy, lysis of adhesions and small bowel resection with primary anastomosis on 06/06/2021 2. Right incarcerated inguinal hernia causing distal small bowel obstruction status post exploratory laparotomy, small bowel resection and repair of strangulated right inguinal hernia on 05/29/2021 3. Hypomagnesemia improved 4. Peritonitis 5. Hypokalemia resolved Hospital course This is a 76-year-old female who presented to the ER with complaints of lower abdominal pain with nausea and vomiting for the past 4 days. Her emesis has been brown in color. She had multiple episodes of vomiting. She has diminished appetite. Last bowel movement was 2 days ago. She does have lower abdominal pa in. She does have evidence of right incarcerated inguinal hernia. Computed tomography scan of abdomen that demonstrated distal small bowel obstruction related to bowel containing right inguinal hernia. Patient has NG tube in place. Patient status post exploratory laparotomy, small bowel resection and repair of strangulated right inguinal hernia on 05/29/2021. Patient had done well but then had evidence of bilious drainage from incision site. She was taken back to the OR for exploratory laparotomy lysis of adhesions and small bowel resection with primary anastomosis on 06/06/2021 for small bowel obstruction and anastomotic dehiscence. Patient tolerated surgery well. She's tolerated advancement of diet. She has minimal pain. She has a wound VAC in place. She reports having bowel movements. Denies any nausea or vomiting. She is afebrile. Infectious diseases recommending Ceftin and Flagyl for 1 week at discharge. She is stable for discharge to [facility] for further rehabilitation. Please refer to chart for any further details. Patient is to continue wound VAC after discharge. Physician Rn Field note has been reviewed by physician. Signing provider agrees with the documented findings, assessment, and plan of care. Patient Condition at Discharge: Stable Plan - Discharge Summary Discharge Rx Participant: Yes New Discharge Prescriptions: New busPIRone HCl [Buspar] 7.5 mg PO BID tab Cefuroxime Axetil [Ceftin] 500 mg PO BID 7 Days #14 tab Metoprolol Tartrate [Lopressor] 50 mg PO TID tab Melatonin 3 mg PO HS PRN tablet PRN Reason: Insomnia Acetaminophen Tab [Tylenol Tab] 650 mg PO Q4H PRN #30 tablet PRN Reason: Pain metroNIDAZOLE [Flagyl] 500 mg PO TID 7 Days #21 tab Continue Cholecalciferol (Vitamin D3) [Vitamin D3 (3000 Iu)] 75 mcg PO DAILY Vitamin B Complex 1 cap PO DAILY Discontinued amLODIPine [Norvasc] 10 mg PO DAILY Discharge Medication List Cholecalciferol (Vitamin D3) [Vitamin D3 (3000 Iu)] 75 mcg PO DAILY 02/07/21 [History] Vitamin B Complex 1 cap PO DAILY 02/07/21 [History] Acetaminophen Tab [Tylenol Tab] 650 mg PO Q4H PRN #30 tablet 06/12/21 [Rx] Cefuroxime Axetil [Ceftin] 500 mg PO BID 7 Days #14 tab 06/12/21 [Rx] Melatonin 3 mg PO HS PRN tablet 06/12/21 [Rx] Metoprolol Tartrate [Lopressor] 50 mg PO TID tab 06/12/21 [Rx] busPIRone HCl [Buspar] 7.5 mg PO BID tab 06/12/21 [Rx] metroNIDAZOLE [Flagyl] 500 mg PO TID 7 Days #21 tab 06/12/21 [Rx] Follow up Appointment(s)/Referral(s): Heri Fitch MD [Primary Care Provider] - 1-2 days Kian Blevins MD [STAFF PHYSICIAN] - 2 Weeks Activity/Diet/Wound Care/Special Instructions: No lifting over 10 pounds You may shower. No soaking or tub baths for 2 weeks Very light activity until you are reevaluated at your follow up appointment with your surgeon Wound VAC instructions: Vac Vers Foam Wound VAC settings continuous 125 mmHg Intensity slow Change wound VAC every 72 hours Discharge Disposition: TRANSFER TO SNF/ECF
--- NOTE | 2021-06-12 15:56 | CDI ---
Documentation Clarification Form Date: 06/12/2021 03:41:09 PM From: Ruma Quiles CCS, CCDS Admit Date: 05/29/2021 11:43:00 AM Patient Name: Anita Ramon Visit Number: [id number] Discharge Date: ATTENTION: The Clinical Documentation Specialists (CDI) and [facility] Coding Staff appreciate your assistance in clarifying documentation. Please respond to the clarification below the line at the bottom and electronically sign. The CDI & [facility] Coding staff will review the response and follow-up if needed. Please note: Queries are made part of the Legal Health Record. If you have any questions, please contact the author of this message via ITS. Dr. Kian Blevins: Per the Attending/Surgeon's Discharge Summary 06/12: Small bowel obstruction and anastomotic dehiscence status post exploratory laparotomy, lysis of adhesions and small bowel resection with primary anastomosis on 06/06/2021. Right incarcerated inguinal hernia causing distal small bowel obstruction status post exploratory laparotomy, small bowel resection and repair of strangulated right inguinal hernia on 05/29/2021 Additional clarification is requested regarding the relationship, if any, that exists between the diagnosis of Anastomotic Dehiscence and SBO and the initial procedure on 05/29/2021. . 05/29 Pre-Operative Diagnosis: Right incarcerated inguinal hernia causing distal SBO. 05/29 Post-Operative Diagnosis: Exploratory laparotomy. Small bowel resection. Repair of strangulated right inguinal hernia. 06/06 Pre-Operative Diagnosis: Anastomotic dehiscence, SBO 06/06 Post-Operative Diagnosis: Exploratory laparotomy. Lysis of Adhesion (small bowel). Small bowel resection with primary anastomosis. History/Risk Factors per the 05/29 H/P: Hypertension, Hyperlipidemia, CVA, Brain tumor, removed 2019. Hysterectomy. Clinical Indicators: Presented to the ED on 05/29 with Nausea, Vomiting, Diarrhea, Constipation, Mild Abdominal Pain. Admit with BRIAN, SBO 05/29 CT Abdomen/Pelvis: Findings consistent with distal small bowel obstruction related to bowel containing right inguinal hernia as detailed above. Surgical exploration is likely warranted. Treatment: Surgeries as above. 05/29: IV Na Cl 500 mls @ 999 mls/hr q31M x2, IV Protonix 40 mg x1, IV Ativan 1 mg x1, IV Reglan 5 mg x1, IV Rocephin 2,000 ms x1, IV Flagyl 100 mls x1, IV Dilaudid 0.5 mg q3H, IV Kcl x1, IV Tylenol x1 What relationship, if any, exists between the diagnosis of Anastomotic Dehiscence and SBO and the initial procedure on 05/29/21: [xx ] Anastomotic dehiscence and SBO is a complication of surgical procedure [ ] Anastomotic dehiscence and SBO is an expected outcome of the surgical procedure [ ] Anastomotic dehiscence and SBO is related to patients co-morbid condition(s), please specify: & not a complication of the procedure [ ] Other please specify: [ ] Unable to determine (Template Last Revised: July 2020) MTDD
--- NOTE | 2021-06-12 16:02 | P.PN ---
Subjective Progress Note Date: 06/12/21 Progress note date of service 06/12/2021. Progress note dictation by Dr. Fitch. New Patient is conscious alert oriented 3 and she is happy with the surgery and happy with the progress. Her vital sign is stable Temperature 97.3 FL heart rate 74. Per minute regular sinus, respiratory rate 16 nonlabored. Blood pressure 122/72 with a mean 88. Her oxygen saturation 94% on room air. Today WBC is 10.7 improved significantly and hemoglobin 11.6, hematocrit 36, and a platelet count 228. Chemistry indicating sodium 141 potassium 3.5, chloride 106 carbon dioxide 23.7 and her BUN is 11.9, creatinine 0.4. Her EGFR for non- 102.1. Her blood sugar or glucose 116 and she is on still on the TPN she had the calcium 7.6 and phosphorus 2.1 which is adjusted by the TPN, coronavirus not detected. On exam she is conscious alert oriented 3 and she has no NG tube. And no Borjas catheter. Her HEENT was no change normal and oropharynx the with the dentures and she is able to eat a regular diet today and Neck was supple no JVD no thyromegaly no lymphadenopathy trachea midline. Chest was clear to auscultation and percussion. Heart PMI in the fifth intercostal space with normal S1 and S2 no gallop. The abdomen it appeared that she had the dislodging of this seal as well as the vacuum pump and the disability dictation for Dr. quezada is taking care of it and informing Dr. quezada with the event. However no bowel sound is positive Extremities no edema and positive pulses. Neurologically stable. Assessment have patient medically stable and start the diet and hopefully no problem and will be subsequently transferred tomorrow [place] when cleared the by Dr. Vinh Domingo the surgical service. Patient happy with that. Plan continue monitor and future discontinuation of antibiotic by the infectious disease. We'll follow her in tomorrow [place] [facility] and rehab if she admitted tomorrow [place] thank you Objective - Vital Signs Vital signs: Vital Signs Temp 97.3 F L 06/12/21 12:53 Pulse 74 06/12/21 12:53 Resp 16 06/12/21 12:53 BP 122/72 06/12/21 12:53 Pulse Ox 94 L 06/12/21 12:53 Intake & Output 06/11/21 06/12/21 06/12/21 18:59 06:59 18:59 Intake Total 1138 900 Output Total 1 Balance 1138 900 -1 Weight 45 kg Intake: Intake, IV Titration 1138 900 Amount Cefepime 2 gm In Sodium 100 100 Chloride 0.9% 100 ml @ 25 mls/hr IVPB Q12HR [facility] Rx #:[id number] Lactated Ringers 1,000 ml 800 @ 125 mls/hr IV .Q8H [facility] Rx#:[id number] Mvi, Adult No.4 with Vit 588 K 10 ml Trace (Conc-1Ml/ Dose) 1 ml In Amino Acid 5%-D20w+Lytes*E* 1,000 ml @ 65 mls/hr IV .BY DURATION [facility] Rx#: [id number] Potassium Phosphate 10 250 mmol In Sodium Chloride 0 .9% 250 ml @ 125 mls/hr IV ONCE ONE Rx#:[id number] metroNIDAZOLE-NS PMX 500 200 mg In Saline 1 100ml.bag @ 100 mls/hr IVPB Q8HR [facility] Rx#:[id number] Output: Stool 1 Other: Voiding Method Incontinent Incontinent Incontinent # Voids 1 # Bowel Movements 1 1 - Labs CBC & Chem 7: 06/12/21 06:48 06/12/21 06:48 Labs: Abnormal Lab Results - Last 24 Hours (Table) 06/11/21 06/11/21 06/12/21 Range/Units 17:17 23:24 05:31 WBC (3.8-10.6) k/uL RBC (3.80-5.40) m/uL Neutrophils # (1.3-7.7) k/uL Lymphocytes # (1.0-4.8) k/uL Creatinine (0.6-1.5) mg/dL BUN/Creatinine Ratio (12.00-20.00) Ratio Glucose (70-110) mg/dL POC Glucose (mg/dL) 116 H 124 H 120 H (75-99) mg/dL Calcium (8.7-10.3) mg/dL Phosphorus (2.4-5.1) mg/dL 06/12/21 06/12/21 06/12/21 Range/Units 06:48 06:48 11:21 WBC 10.7 H (3.8-10.6) k/uL RBC 3.64 L (3.80-5.40) m/uL Neutrophils # 8.8 H (1.3-7.7) k/uL Lymphocytes # 0.8 L (1.0-4.8) k/uL Creatinine 0.4 L (0.6-1.5) mg/dL BUN/Creatinine Ratio 31.23 H (12.00-20.00) Ratio Glucose 116 H (70-110) mg/dL POC Glucose (mg/dL) 181 H (75-99) mg/dL Calcium 7.6 L (8.7-10.3) mg/dL Phosphorus 2.1 L (2.4-5.1) mg/dL Microbiology - Last 24 Hours (Table) 06/06/21 18:41 Blood Culture - Preliminary Blood No Growth after 120 hours 06/06/21 18:25 Blood Culture - Preliminary Blood No Growth after 120 hours
--- NOTE | 2021-06-12 16:07 | CDI ---
Documentation Clarification Form Date: 06/12/2021 03:57:00 PM From: Ruma Quiles CCS, CCDS Admit Date: 05/29/2021 11:43:00 AM Patient Name: Anita Ramon Visit Number: [id number] Discharge Date: ATTENTION: The Clinical Documentation Specialists (CDI) and [facility] Coding Staff appreciate your assistance in clarifying documentation. Please respond to the clarification below the line at the bottom and electronically sign. The CDI & [facility] Coding staff will review the response and follow-up if needed. Please note: Queries are made part of the Legal Health Record. If you have any questions, please contact the author of this message via ITS. Dr. Heri Fitch: Per the 06/08 Medical Consult Progress Note: Patient started on IV nutrition with PICC line placed because of severe protein calorie deficiency & Albumin 1.9. Based on this information and the findings below, is there an additional diagnosis that is clinically appropriate for this patient? History/Risk Factors per the 05/29 H/P: Hypertension, Hyperlipidemia, CVA, Brain tumor, removed 2019. Hysterectomy. Clinical Indicators: Presented to the ED on 05/29 with Nausea, Vomiting, Diarrhea, Constipation, Mild Abdominal Pain. Admit with BRIAN, SBO 05/29 CT Abdomen/Pelvis: Findings consistent with distal small bowel obstruction related to bowel containing right inguinal hernia as detailed above. Surgical exploration is likely warranted. 05/29 Pre-Operative Diagnosis: Right incarcerated inguinal hernia causing distal SBO. 05/29 Post-Operative Diagnosis: Exploratory laparotomy. Small bowel resection. Repair of strangulated right inguinal hernia. 06/06 Pre-Operative Diagnosis: Anastomotic dehiscence, SBO 06/06 Post-Operative Diagnosis: Exploratory laparotomy. Lysis of Adhesion (small bowel). Small bowel resection with primary anastomosis. Treatment: Surgeries as above. 05/29: IV Na Cl 500 mls @ 999 mls/hr q31M x2, IV Protonix 40 mg x1, IV Ativan 1 mg x1, IV Reglan 5 mg x1, IV Rocephin 2,000 ms x1, IV Flagyl 100 mls x1, IV Dilaudid 0.5 mg q3H, IV Kcl x1, IV Tylenol x1 06/08 PICC line placed, TPN started. Dietary Consult: 06/08 to start TPN for nutrition support: PICC line ordered for TPN. 06/11 Medical Consult Progress Note: Height 5 feet 8 inches, weight (45) kg, BSA 1.52 m2, BMI 15.1 kg/m2. 06/11 Nursing Nutritional Assessment: Underweight, Moderate temporal muscle wasting, Oral supplement: Magic Cups BID 290 Kcal, 9 gm protein/serving, consuming 50%. Is there an additional diagnosis that is clinically appropriate for this patient? [ x] Moderate Protein-Calorie Malnutrition [ ] Severe Protein-Calorie Malnutrition [ ] Other condition, please specify: [ ] Unable to Determine (Template Last Revised: July 2020) MTDD
[2021-06-12] MEDS ORDERED: CEFEPIME 2 GM in SODIUM CHLORIDE 0.9% 100 ML IVPB SCH (20:00)
--- NOTE | 2021-06-19 22:17 | P.PN ---
Subjective Progress Note Date: 06/12/21 Principal diagnosis: Abdominal infection/peritonitis Patient is a 76-year-old female admitted to the hospital on 05/29/2021 with nausea no vomiting abdominal pain patient was diagnosed with small bowel obstruction is status post initial laparotomy small bowel resection and repair of right inguinal hernia patient subsequently did have an anastomosis leak and dehiscence of the wound status post repeat laparotomy on 06/06/2021 resection and repair along with anastomosis of the small bowel. on today's evaluation that is 06/12/2021, the patient denies any fever or any chills, the patient abdominal pain is currently controlled , the patient denies any nausea or vomiting and has been tolerating her diet , the patient denies chest pain shortness of breath or cough, overall feeling better Objective - Vital Signs Vital signs: Vital Signs Temp 97.3 F L 06/12/21 12:53 Pulse 74 06/12/21 12:53 Resp 16 06/12/21 12:53 BP 122/72 06/12/21 12:53 Pulse Ox 94 L 06/12/21 12:53 Intake & Output 06/11/21 06/12/21 06/12/21 18:59 06:59 18:59 Intake Total 1138 900 Output Total 1 Balance 1138 900 -1 Weight 45 kg Intake: Intake, IV Titration 1138 900 Amount Cefepime 2 gm In Sodium 100 100 Chloride 0.9% 100 ml @ 25 mls/hr IVPB Q12HR [facility] Rx #:[id number] Lactated Ringers 1,000 ml 800 @ 125 mls/hr IV .Q8H [facility] Rx#:[id number] Mvi, Adult No.4 with Vit 588 K 10 ml Trace (Conc-1Ml/ Dose) 1 ml In Amino Acid 5%-D20w+Lytes*E* 1,000 ml @ 65 mls/hr IV .BY DURATION [facility] Rx#: [id number] Potassium Phosphate 10 250 mmol In Sodium Chloride 0 .9% 250 ml @ 125 mls/hr IV ONCE ONE Rx#:[id number] metroNIDAZOLE-NS PMX 500 200 mg In Saline 1 100ml.bag @ 100 mls/hr IVPB Q8HR [facility] Rx#:[id number] Output: Stool 1 Other: Voiding Method Incontinent Incontinent Incontinent # Voids 3 # Bowel Movements 1 1 - Exam GENERAL DESCRIPTION:[ Patient is awake and alert in no distress] HEENT: [Oral mucosa is dry, ] RESPIRATORY SYSTEM: [Unlabored breathing clear to auscultation] CARDIA VASCULAR SYSTEM: [S1-S2 regular rate and rhythm no murmur] GI: [Abdominal soft, incision is covered with a wound VAC no distention] EXTREMITIES: [No edema feet] - Labs CBC & Chem 7: 06/12/21 06:48 06/12/21 06:48 Labs: Abnormal Lab Results - Last 24 Hours (Table) 06/11/21 06/11/21 06/12/21 Range/Units 17:17 23:24 05:31 WBC (3.8-10.6) k/uL RBC (3.80-5.40) m/uL Neutrophils # (1.3-7.7) k/uL Lymphocytes # (1.0-4.8) k/uL Creatinine (0.6-1.5) mg/dL BUN/Creatinine Ratio (12.00-20.00) Ratio Glucose (70-110) mg/dL POC Glucose (mg/dL) 116 H 124 H 120 H (75-99) mg/dL Calcium (8.7-10.3) mg/dL Phosphorus (2.4-5.1) mg/dL 06/12/21 06/12/21 06/12/21 Range/Units 06:48 06:48 11:21 WBC 10.7 H (3.8-10.6) k/uL RBC 3.64 L (3.80-5.40) m/uL Neutrophils # 8.8 H (1.3-7.7) k/uL Lymphocytes # 0.8 L (1.0-4.8) k/uL Creatinine 0.4 L (0.6-1.5) mg/dL BUN/Creatinine Ratio 31.23 H (12.00-20.00) Ratio Glucose 116 H (70-110) mg/dL POC Glucose (mg/dL) 181 H (75-99) mg/dL Calcium 7.6 L (8.7-10.3) mg/dL Phosphorus 2.1 L (2.4-5.1) mg/dL Microbiology - Last 24 Hours (Table) 06/06/21 18:41 Blood Culture - Preliminary Blood No Growth after 120 hours 06/06/21 18:25 Blood Culture - Preliminary Blood No Growth after 120 hours Assessment and Plan (1) Peritonitis Status: Acute Code(s): K65.9 - PERITONITIS, UNSPECIFIED SNOMED Code(s): 44098932 Plan: 1-patient with peritonitis from anastomosis leak in this patient who is status post repair of the leak, patient did have penicillin ALLERGY and is currently covered with the cefepime and Flagyl which will be continued while inpatient, the patient will be transitioned to oral Ceftin and Flagyl 7 days on discharge and this was discussed with the surgical team Time with Patient: Less than 30
== END 2021-06-12 16:49 | DRG 329 ==
LOC: EC 09:25 → 3SCARD 11:43 → 5NMEDONC 05-31 15:53
PROVIDERS: ADMIT Surgery; ATTEND Surgery
PROC: 0D9670Z Drainage of Stomach with Drainage Device, Via Natural or Artificial Opening (ICD-10-PCS; 2021-05-29)
PROC: 0DB80ZZ Excision of Small Intestine, Open Approach (ICD-10-PCS; principal; 2021-05-29 14:25)
PROC: 0YU50JZ Supplement Right Inguinal Region with Synthetic Substitute, Open Approach (ICD-10-PCS; principal; 2021-05-29 14:25)
PROC: 0DN80ZZ Release Small Intestine, Open Approach (ICD-10-PCS; 2021-06-06)
PROC: 0DBA0ZZ Excision of Jejunum, Open Approach (ICD-10-PCS; 2021-06-06)
PROC: 02HV33Z Insertion of Infusion Device into Superior Vena Cava, Percutaneous Approach (ICD-10-PCS; 2021-06-08)
PROC: 3E0336Z Introduction of Nutritional Substance into Peripheral Vein, Percutaneous Approach (ICD-10-PCS; 2021-06-08)
DX: K40.30 Unilateral inguinal hernia, with obstruction, without gangrene, not specified as recurrent (principal); K65.9 Peritonitis, unspecified; K56.2 Volvulus; K56.50 Intestinal adhesions [bands], unspecified as to partial versus complete obstruction; E87.0 Hyperosmolality and hypernatremia; E87.2 Acidosis; K55.9 Vascular disorder of intestine, unspecified; N17.9 Acute kidney failure, unspecified; N39.0 Urinary tract infection, site not specified; T81.32XA Disruption of internal operation (surgical) wound, not elsewhere classified, initial encounter; Z68.1 Body mass index [BMI] 19.9 or less, adult; E44.0 Moderate protein-calorie malnutrition; K91.89 Other postprocedural complications and disorders of digestive system; K59.00 Constipation, unspecified; D75.89 Other specified diseases of blood and blood-forming organs; E16.2 Hypoglycemia, unspecified; E78.5 Hyperlipidemia, unspecified; E83.42 Hypomagnesemia; E86.0 Dehydration; E87.6 Hypokalemia; E88.09 Other disorders of plasma-protein metabolism, not elsewhere classified; N20.0 Calculus of kidney; F32.9 Major depressive disorder, single episode, unspecified; R25.1 Tremor, unspecified; Z20.822 Contact with and (suspected) exposure to COVID-19; I08.1 Rheumatic disorders of both mitral and tricuspid valves; F41.9 Anxiety disorder, unspecified; I10 Essential (primary) hypertension; K80.20 Calculus of gallbladder without cholecystitis without obstruction; R00.0 Tachycardia, unspecified; M41.9 Scoliosis, unspecified; G47.00 Insomnia, unspecified; F43.23 Adjustment disorder with mixed anxiety and depressed mood; R09.02 Hypoxemia; T73.0XXA Starvation, initial encounter; R32 Unspecified urinary incontinence; D72.829 Elevated white blood cell count, unspecified; H57.9 Unspecified disorder of eye and adnexa; Y83.2 Surgical operation with anastomosis, bypass or graft as the cause of abnormal reaction of the patient, or of later complication, without mention of misadventure at the time of the procedure; Z79.899 Other long term (current) drug therapy; Z86.73 Personal history of transient ischemic attack (TIA), and cerebral infarction without residual deficits; Z87.442 Personal history of urinary calculi; Z88.0 Allergy status to penicillin; Z88.8 Allergy status to other drugs, medicaments and biological substances; Z90.710 Acquired absence of both cervix and uterus; Z60.2 Problems related to living alone; Z98.890 Other specified postprocedural states
CPT/HCPCS: 36415; 36573; 71045; 74176; 80048; 80053; 81001; 82040; 82150; 82330; 82607; 82746; 83090; 83605; 83690; 83735; 83921; 84100; 84132; 84443; 84478; 85025; 85027; 85610; 85730; 86140; 86850; 86900; 86901; 87040; 87086; 87635; 88302; 88307; 93005; 93306; 96374; 96375; 99291